=== PATIENT | female | born 1970 | race Caucasian/White ===

== ENCOUNTER 2018-12-03 13:01 | Outpatient (REF) | payer SELFPAY ==
--- NOTE | 2018-12-03 17:00 | PAPFT_PTH ---
PATIENT: Helena Mora LOC: [facility] U#:[id number] AGE/SX: 48/F ROOM: RE12/03/[address]: Miriam Simmons : 1970 BED: DIS: 12/03/2018 SPEC #: [id number] RECD: 12/04/18 13:15 STATUS: ERIN REDacia #: [id number] AMINAH: 12/03/18 17:[address]: Miriam Simmons DEPT: [facility] Cytology RECD BY: Kassandra Rodas ENTERED: 12/04/18 13:15 SP TYPE: PAPFT OTHR DR: Aaron Currie Tissues: 1 - CX/ENDOCX FOR PAP SMEARS Procedures: PAP THIN PREP/UVM Screening HPV DNA PROBE Comments: [id number]
== END 2018-12-03 13:21 ==
LOC: NCHCN 13:01
PROVIDERS: PCP Family Medicine; Visit Provider Family Medicine
DX: Z00.00 Encounter for general adult medical examination without abnormal findings (principal); Z12.4 Encounter for screening for malignant neoplasm of cervix; Z11.51 Encounter for screening for human papillomavirus (HPV)
CPT/HCPCS: 88142; 87624

== ENCOUNTER 2020-02-10 08:34 | Outpatient (REF) | payer BC, SELFPAY ==
[2020-02-10 21:19] LABS: Calculated LDL 143 mg/dL (<100); Cholesterol 218 mg/dL (<200); HDL Cholesterol 42 mg/dL (40-60); Triglyceride 167 mg/dL (<150)
[2020-02-15 12:54] LABS: IgA <13 mg/dL (85-499); Interpretation (See Note); Tissue Transglutaminase IgA <1.2 U/mL (<4.0)
== END 2020-02-10 08:54 ==
LOC: NCHCN 08:34
PROVIDERS: PCP Family Medicine; Visit Provider Nurse Practitioner Community Health
DX: E66.01 Morbid (severe) obesity due to excess calories (principal); Z13.220 Encounter for screening for lipoid disorders; Z91.89 Other specified personal risk factors, not elsewhere classified
CPT/HCPCS: 80061; 82784; 83516

== ENCOUNTER 2021-06-16 14:37 | Outpatient (REF) | payer OTHER, SELFPAY ==
[2021-06-18 16:29] LABS: COVID-19 RT-PCR UVMMC Result Negative (Negative)
== END 2021-06-16 14:38 | disposition home or self-care (01) ==
LOC: NCHCN 14:37
PROVIDERS: PCP Family Medicine; Visit Provider Nurse Practitioner Community Health
DX: Z20.822 Contact with and (suspected) exposure to COVID-19 (principal); J06.9 Acute upper respiratory infection, unspecified
CPT/HCPCS: U0003

== ENCOUNTER 2021-06-17 21:21 | Emergency (ER) | payer OTHER, SELFPAY ==
[2021-06-17] VITALS (19 sets, daily range): BP systolic 100–122; BP diastolic 55–71; PULSE 84–104; RESP 13–21; TEMP 37; O2SAT 94–96
--- NOTE | 2021-06-17 21:45 | DI.RAD_ITS ---
Exam(s) XR PORTABLE CHEST AP EXAM: XR PORTABLE CHEST AP CLINICAL HISTORY: fever, cough TECHNIQUE: COMPARISON: CR CHEST 2 VIEWS PA,LAT from 07/28/2016 FINDINGS: Semi upright AP chest at 1035 hours. The heart is not enlarged. Lungs are clear. No pleural effusi on seen on this frontal film. IMPRESSION: No evidence of acute process. RADIATION DOSE DELIVERED: Total DLP
--- NOTE | 2021-06-17 21:55 | W.ED.GENAD ---
Discharge Plan Disposition Patient Disposition: HOME Condition: Good Discharge Details Clinical Impression: Viral illness, Left leg pain Primary Care Provider: Aaron Currie ED Provider: Keith Sidhu Meds and New Rx's Prescriptions: New Eliquis 5 mg tablet 10 mg PO BID Qty: 8 RF: 0 Continued citalopram 40 mg Tablet 40 mg PO DAILY RF: 0 aspirin 81 mg Tablet 81 mg PO BID RF: 0 buspirone 15 mg Tablet 15 mg PO BID RF: 0 metoprolol succinate 25 mg Capsule,Sprinkle,Er 24hr 25 mg PO DAILY RF: 0 Discharge Instructions Instructions: Viral Syndrome (ED) Additional Instructions: Your Covid test and chest x-ray are negative. Your blood count and chemistries look fine. Your screening test for blood clot is positive meaning ultrasound of your leg to rule out deep vein thrombosis is needed. Hopefully this will occur today but may not occur until Saturday morning. In the meantime you will need to take Eliquis 10 mg twice a day with first dose given today here. Next dose would be due around noon on Saturday if the ultrasound is not done. Prescription has been sent to the [facility] in [facility]. Return to ED for chest pain, shortness of breath, mental status changes, other concerns. Medical Decision Making Patient presenting with chief complaint fever, cough, diarrhea. She is vaccinated but symptoms certainly concerning for Covid. She is also complaining of left lower extremity pain. There is no obvious edema or swelling. There is a bruise left lateral calf region. Pulses are intact and I doubt she has DVT but we will check D-dimer given the posterior calf tenderness. Will get chest x-ray, CBC, CMP as well as swab for Covid. Chest x-ray is normal. Normal WBC. CMP with slightly elevated AST and ALT. D-dimer is markedly elevated. Ultrasound not available tonight. Covid swab negative. Discussed findings with patient. Will dose with Eliquis tonight and patient will come back for 9 a.m. ultrasound. Return to ED for results. HPI General Mode of arrival: ambulatory. Date/Time Provider Initiated Documentation: 06/17/21 21:27. Limitations to Documentation: no limitations. Information obtained by: patient and RN notes reviewed. HPI Narrative: Patient presents to ED with complaint of fever, chills, cough. She is also now having significant amount of diarrhea and cramps. Fever and chills started yesterday. Cough and diarrhea started today. She also has bruising and pain in the left lower extremity with no definite trauma that she recalls. She is vaccinated against Covid. She denies headache, sore throat, chest pain, shortness of breath, vomiting, urinary symptoms, rash. She is a little concerned that she may have developed a clot in her leg which is the biggest reason for coming in. However, she is also concerned about Covid. Related Data Home Medications Medication Instructions Recorded Confirmed aspirin 81 mg PO BID 06/17/21 06/17/21 buspirone 15 mg PO BID 06/17/21 06/17/21 citalopram 40 mg PO DAILY 06/17/21 06/17/21 metoprolol succinate 25 mg PO DAILY 06/17/21 06/17/21 apixaban [Eliquis] 10 mg PO BID #8 tab 06/18/21 Previous Rx's Medication Instructions Recorded apixaban [Eliquis] 10 mg PO BID #8 tab 06/18/21 Allergies Allergy/AdvReac Type Severity Reaction Status Date / Time sulfamethoxazole Allergy Intermediate Skin Rash Unverified 06/17/21 21:35 [From Bactrim] trimethoprim [From Bactrim] Allergy Intermediate Skin Rash Unverified 06/17/21 21:35 General Stated Complaint: Fever RAMA: 3 Review of Systems Narrative: As documented in HPI otherwise negative as below. Const: no weakness Resp: no SOB, pleuritic pain CV: no CP, edema, syncope GI: no nausea, vomiting Neuro: no headache, numbness, focal weakness, confusion PFSH Medical History Coronary artery dissection Depression Surgical History (Updated 06/17/21 @ 21:57 by Keith Sidhu MD) S/P cholecystectomy S/P tubal ligation Stented coronary artery Social History Smoking/Tobacco Use Status: Never Smoking risk assessment performed?: Yes Alcohol Intake: current Alcohol Intake frequency: holidays/special occasions only Drug use: Never Substance use type: does not use Do you feel safe at home: Yes Do you feel safe in your relationship?: Yes Exam Narrative Exam Narrative: Const: Overweight female in NAD. HEENT: NC/AT. Normal facial exam. Eyes: Normal conjunctiva and sclera. Neck: Supple. Trachea midline. Lungs: Normal respiratory effort. Lungs are clear. Cor: RRR without murmur/gallop. Good radial pulses. GI: Soft. NT/ND. No guarding or rebound. Neuro: A+O x 3. Normal speech, mentation, gait. Cranial nerves II - XII grossly intact. No gross motor or sensory deficit. Ext: No C/C/E. Large bruise lateral left mid calf. Mild posterior calf tenderness to compression. Skin: Warm and diaphoretic without rash. Course Vital Signs Vital signs: Vital Signs Temperature 98.6 F 06/17/21 21:32 Pulse 104 H 06/17/21 21:32 Respiratory Rate 14 06/17/21 21:32 Blood Pressure 122/56 L 06/17/21 21:32 Pulse Oximetry 96 06/17/21 21:32 Temperature 98.6 F 06/17/21 21:32 Temperature Source Temporal Artery Scan 06/17/21 21:32 Pulse 104 H 06/17/21 21:32 Respiratory Rate 14 06/17/21 21:32 Respiratory Effort Non-Labored 06/17/21 21:38 Blood Pressure 122/56 L 06/17/21 21:32 Blood Pressure Position Sitting 06/17/21 21:32 Pulse Oximetry 96 06/17/21 21:32 Oxygen Delivery Method OxyMask 06/17/21 21:32 Pain Level 3 06/17/21 21:32
[2021-06-17] MEDS: Lactated Ringers 1,000 ML 1000 ML IV (22:20)
[2021-06-17 22:54] LABS: Source Nasal/Nares
--- NOTE | 2021-06-17 22:54 | DI.VRAD_ITS ---
PROCEDURE INFORMATION: Exam: XR Chest Exam date and time: 06/17/2021 10:00 PM Age: 51 years old Clinical indication: Fever and shortness of breath; Patient HX: Fever, cough TECHNIQUE: Imaging protocol: XR of the chest. Views: 1 view. COMPARISON: CR CHEST 2 VIEWS PA,LAT 07/28/2016 3:40 PM FINDINGS: Lungs: Unremarkable. No consolidation. Pleural spaces: Unremarkable. No pleural effusion. No pneumothorax. Heart/Mediastinum: Unremarkable. No cardiomegaly. Bones/joints: Unremarkable. IMPRESSION: No acute findings. Dictated and Authenticated by: Julio Underwood MD. Ordering:MEERA Parker MD
[2021-06-17 22:55] LABS: Abs Immature Grans 0.04 10^3/uL (0.0-0.06); Absolute Basophil Count 0.03 10^3/uL (0.0-0.2); Absolute Eosinophil Count 0.01 10^3/uL (0.0-0.7); Absolute Lymphocyte Count 1.13 10^3/uL (1.2-3.4); Absolute Monocyte Count 0.59 10^3/uL (0.1-0.8); Absolute Neutrophil Count 8.23 10^3/uL (1.2-6.7); Basophils % 0.3; Eosinophils % 0.1; HCT 39.4 % (36.0-46.0); HGB 12.6 g/dL (11.2-15.7); Immature Grans % 0.4; Lymphocytes % 11.3; MCH 26.9 pg (27.0-33.0); MCV 84.2 fL (80-95); MPV 11.1 fL (8.0-11.0); Monocytes % 5.9; Nucleated RBC 0 %; Platelet Count 233 10^3/uL (130-400); RBC 4.68 10^6/uL (3.93-5.22); RDW 13.1 % (11.7-14.6); WBC 10.03 10^3/uL (4.4-10.8)
[2021-06-17 23:26] LABS: ALT 91 U/L (14-59); AST 72 U/L (15-37); Albumin 2.9 g/dL (3.4-5.0); Alkaline Phosphatase 83 U/L (46-116); Anion Gap 8.8 mmol/L (3-11); BUN 15 mg/dL (7-18); Bilirubin, Total 0.3 mg/dL (0.2-1.0); CO2 24.2 mmol/L (21.0-32.0); Calcium 8.6 mg/dL (8.5-10.1); Chloride 106 mmol/L (98-107); Estimated GFR 58.22 (mL/min/1.73m2); Glucose 111 mg/dL (74-106); Sodium 139 mmol/L (136-145); Total Protein 7.2 g/dL (6.4-8.2)
[2021-06-17 23:43] LABS: D-Dimer 3474 ng/mlFEU (<500)
[2021-06-18] VITALS: BP 126/70; PULSE 86; O2SAT 95
[2021-06-18 00:01] VITALS: O2SAT 96
[2021-06-18 00:22] LABS: COVID-19 PCR Negative (Negative)
[2021-06-18] MEDS: Apixaban 5 MG TAB 10 MG PO (00:34)
[2021-06-18 00:46] VITALS: TEMP 37
--- NOTE | 2021-06-19 09:51 | NUR.NOTE ---
Spoke with Helena, verified identity and relayed negative covid results to her.
== END 2021-06-18 01:10 | disposition home or self-care (01) ==
PROVIDERS: Emergency Provider Emergency Medicine; PCP Family Medicine
DX: B34.9 Viral infection, unspecified (principal); R50.9 Fever, unspecified; R05 Cough; M79.662 Pain in left lower leg
CPT/HCPCS: 36415; 80053; 87635; 99283; 71045; 85025; 85379; 99284

== ENCOUNTER 2021-06-18 09:40 | Emergency (ER) | payer OTHER, SELFPAY ==
--- NOTE | 2021-06-18 09:53 | ED.GENADUL_ITS ---
Discharge Plan Disposition Patient Disposition: HOME Condition: Stable Discharge Details Clinical Impression: Viral illness, Left leg pain Primary Care Provider: Aaron Currie ED Provider: Omar Hector Home Meds and New Rx's Prescriptions: Continued citalopram 40 mg Tablet 40 mg PO DAILY RF: 0 aspirin 81 mg Tablet 81 mg PO BID RF: 0 buspirone 15 mg Tablet 15 mg PO BID RF: 0 metoprolol succinate 25 mg Capsule,Sprinkle,Er 24hr 25 mg PO DAILY RF: 0 Discontinued Eliquis 5 mg tablet 10 mg PO BID Qty: 8 RF: 0 Discharge Instructions Additional Instructions: Please see discharge instructions provided by Dr. Sidhu from last night. Please drink plenty of fluids to stay hydrated. Rest over the next few days. Please contact your primary care physician to arrange follow-up. Call tomorrow. If pain persist she may need follow-up ultrasound. Return to the ER immediately for any worsening or new concerning symptoms. Discharge Data Discharge Date/Time-TO BE ENTERED AT DEPARTURE: 06/18/21 10:27 Medical Decision Making 51-year-old female here with left leg pain, seen in the emergency department last night for acute onset left lower extremity pain, also with URI symptoms, ultrasound was not available last night to assess for DVT, she was instructed to return this morning for ultrasound. Patient does not request any additional medical screening exam and is here for discussion of her results -patient should not be billed for this repeat visit. I did examine her leg and did not see any inflammatory changes. She has strong pulses bilateral distal lower extremities. Ultrasound interpreted by radiology: FINDINGS: Left deep veins: Unremarkable. The common femoral, femoral, proximal profunda femoral and popliteal veins are patent without thrombus. Normal Doppler waveforms. Normal compressibility and/or augmentation response. Left superficial veins: Unremarkable. Saphenofemoral junction is patent without thrombus. Soft tissues: Unremarkable. IMPRESSION: No evidence of deep vein thrombosis. Ultrasound results were reviewed with patient. Patient was encouraged to follow-up with PCP and have repeat ultrasound for persistent symptoms. Patient understands the importance of timely outpatient follow-up. HPI General Mode of arrival: ambulatory . Date/Time Provider Initiated Documentation: 06/18/21 09:43 . Limitations to Documentation: no limitations . Information obtained by: patient . HPI Narrative: 51-year-old female here for discussion of ultrasound results. Patient was seen here last night for left calf pain, ultrasound was not available last night, and pt advised to return for ultrasound this morning. She continues to have some pain in her left calf. She had ultrasound performed just prior to arrival and is here requesting results. Patient is not requesting additional medical screening exam. Related Data Home Medications Medication Instructions Recorded Confirmed aspirin 81 mg PO BID 06/17/21 06/18/21 buspirone 15 mg PO BID 06/17/21 06/18/21 citalopram 40 mg PO DAILY 06/17/21 06/18/21 metoprolol succinate 25 mg PO DAILY 06/17/21 06/18/21 Allergies Allergy/AdvReac Type Severity Reaction Status Date / Time sulfamethoxazole Allergy Intermediate Skin Rash Unverified 06/18/21 10:24 [From Bactrim] trimethoprim [From Bactrim] Allergy Intermediate Skin Rash Unverified 06/18/21 10:24 General RAMA: 3 PFSH Medical History Coronary artery dissection Depression Surgical History S/P cholecystectomy S/P tubal ligation Stented coronary artery Social History Smoking/Tobacco Use Status: Never Smoking risk assessment performed?: Yes Alcohol Intake: current Alcohol Intake frequency: holidays/special occasions only Drug use: Never Substance use type: does not use Do you feel safe at home: Yes Do you feel safe in your relationship?: Yes Exam Cardio Rate: regular rate Rhythm: regular rhythm Pulses: dorsalis pedis present bilaterally 2+ Extrem Right lower extremity: knee Details: tenderness and normal ROM; no swelling, no deformity and no unusual warmth and lower leg Details: tenderness Location: of the posterior calf and no edema; no erythema, no localized swelling, no palpable cords, no ecchymosis, no crepitus, no deformity and no unusual warmth
[2021-06-18 10:13] VITALS: BP 121/74; PULSE 95; RESP 18; TEMP 36.8; O2SAT 97
== END 2021-06-18 10:27 | disposition home or self-care (01) ==
PROVIDERS: Emergency Provider Student in an Organized Health Care Education/Training Program; PCP Family Medicine
DX: M79.605 Pain in left leg (principal)

== ENCOUNTER 2022-09-06 17:52 | Outpatient (REF) | payer BC, SELFPAY ==
[2022-09-06 21:57] LABS: ALT 37 U/L (14-59); AST 27 U/L (15-37); Albumin 3.5 g/dL (3.4-5.0); Alkaline Phosphatase 77 U/L (46-116); Anion Gap 9.8 mmol/L (3-11); BUN 20 mg/dL (7-18); Bilirubin, Total 0.3 mg/dL (0.2-1.0); CO2 27.2 mmol/L (21.0-32.0); CREATININE 0.9 mg/dL (0.55-1.02); Calculated LDL 120 mg/dL (<100); Chloride 101 mmol/L (98-107); Cholesterol 200 mg/dL (<200); Estimated GFR 76.44 (mL/min/1.73m2); Glucose 88 mg/dL (74-106); HDL Cholesterol 40 mg/dL (40-60); Potassium 3.8 mmol/L (3.5-5.1); Sodium 138 mmol/L (136-145); TSH 1.12 uIU/mL (0.36-3.74); Triglyceride 200 mg/dL (<150)
== END 2022-09-06 17:53 | disposition home or self-care (01) ==
LOC: NCHCN 17:52
PROVIDERS: PCP Family Medicine; Visit Provider Registered Nurse
DX: I25.10 Atherosclerotic heart disease of native coronary artery without angina pectoris (principal); E66.8 Other obesity; Z13.1 Encounter for screening for diabetes mellitus; Z13.29 Encounter for screening for other suspected endocrine disorder; Z13.220 Encounter for screening for lipoid disorders
CPT/HCPCS: 80053; 80061; 83036; 84443

== ENCOUNTER 2024-01-06 13:10 | Outpatient (REF) | payer BC, SELFPAY ==
[2024-01-06 15:44] LABS: HCT 40.9 % (36.0-46.0); HGB 13.2 g/dL (11.2-15.7); MCH 28.1 pg (27.0-33.0); MCHC 32.3 % (32.0-36.0); MCV 87 fL (80-95); Platelet Count 286 10^3/uL (130-400); RDW 12.9 % (11.7-14.6); RDW-SD 40.6 fL; WBC 6.33 10^3/uL (4.4-10.8)
[2024-01-06 16:06] LABS: Hemoglobin A1C 5.8 % (<5.7)
[2024-01-06 16:18] LABS: Anion Gap 9.2 mmol/L (3-11); BUN 19 mg/dL (7-18); CO2 23.8 mmol/L (21.0-32.0); CREATININE 0.8 mg/dL (0.55-1.02); Calcium 8.8 mg/dL (8.5-10.1); Calculated LDL 148 mg/dL (<100); Chloride 108 mmol/L (98-107); Cholesterol 228 mg/dL (<200); Glucose 116 mg/dL (74-106); HDL Cholesterol 49 mg/dL (40-60); Potassium 4.5 mmol/L (3.5-5.1); Sodium 141 mmol/L (136-145); Triglyceride 157 mg/dL (<150)
== END 2024-01-06 13:11 | disposition home or self-care (01) ==
LOC: NCHCN 13:10
PROVIDERS: PCP Family Medicine; Visit Provider Internal Medicine
DX: R73.09 Other abnormal glucose (principal); E66.9 Obesity, unspecified
CPT/HCPCS: 80048; 80061; 85027; 83036

== ENCOUNTER 2024-07-29 16:30 | Emergency (ER) | payer BC, SELFPAY ==
[2024-07-29 16:37] VITALS: BP 118/69; PULSE 92; RESP 15; TEMP 37.4; O2SAT 94
--- NOTE | 2024-07-29 17:00 | DI.RAD_ITS ---
Exam(s) XR ELBOW LT COMPLETE EXAM: XR ELBOW LT COMPLETE CLINICAL HISTORY: l elbow pain sp fall. TECHNIQUE: 2D digital imaging was performed. COMPARISON: No exams were available for comparison FINDINGS: 3 views No evidence of fracture of the radial head and neck. There is slight elevation of the anterior fat p ad. No swelling of the olecranon bursa. On the lateral aspect of the elbow there is some cortical irregularity at the level of the lateral hu meral epicondyle. Possibly related to epicondylitis versus direct trauma at this level. On 1 image there is a E 6 x 2 mm calcific density just distal to the lateral epicondyle in the region of the lat eral collateral ligament. IMPRESSION: No fracture of the radial head/neck. Findings on the lateral aspect of the distal humerus as described above. Correlation with site of te nderness recommended. DATA REPOSITORY: RADIATION DOSE DELIVERED:
--- NOTE | 2024-07-29 17:13 | W.ED.GENAD ---
Discharge Plan Disposition Patient Disposition: Home Discharge Details Clinical Impression: Abrasion of forearm, left, Immunization, tetanus-diphtheria, Hx of falling, Traumatic ecchymosis of forehead Primary Care Provider: Aaron Currie ED Provider: Jourdan Sanchez Home Meds and New Rx's Prescriptions: Continued citalopram 40 mg Tablet 40 mg PO DAILY aspirin 81 mg Tablet 81 mg PO BID buspirone 15 mg Tablet 15 mg PO BID metoprolol succinate 25 mg Capsule,Sprinkle,Er 24hr 25 mg PO DAILY bupropion HCl 75 mg tablet 150 mg PO BID naltrexone 1.5 mg capsule 16 mg PO BID Discharge Instructions Instructions: Td (Tetanus, Diphtheria) Vaccine CDC Vaccine Information Statement (VIS) Additional Instructions: You are seen in the emergency department for your arm pain. Your x-ray showed no sign of any fractures. Given your discomfort you are receiving a sling which you should wear for the next several days. As we discussed please return to the emergency department if you develop streaking signs of infection fevers or any foul-smelling drainage from your wound. Otherwise please ice your arm 20 minutes on 20 minutes off tomorrow. Please do not wear the sling for more than 3 days. Please follow-up as needed with your primary care provider. Discharge Data Discharge Date/Time-TO BE ENTERED AT DEPARTURE: 07/29/24 19:10 HPI General Date/Time Provider Initiated Documentation: 07/29/24 17:00. HPI Narrative: MDM Primary survey intact. Reassuring shock index. On secondary survey patient has superficial abrasion to left elbow with underlying bony tenderness concerning for possibility of fracture for which she will undergo plain films. No loss of consciousness and age less than 65 so no indication for CT head based on [place] CT head rules. [place] Head CT Criteria Major Criteria GCS < 15 : [No] Open or depressed skull Fx: [No] Sign of Basilar Skull Fx: [No] > 2 Episodes Vomiting: [No] Anticoagulation: [No] Age > 65: [No] Minor Criteria Retrograde Amnesia >30min: [No] Dangerous Mechanism: [No] Per [place] head CT rules, CT head not obtained. The patient had a GCS of 15, no open/depressed skull fracture, no signs of basilar skull fracture (hemotympanum, raccoon eyes, dominguez's sign, CSF [place]/Rhinorrhea), no vomiting, and is less than 65 years of age. No midline cervical spinal tenderness no indication for CT cervical spine based on Nexus criteria. Per Nexus criteria, cervical CT not obtained. The patient had no c-spine midline tenderness, no evidence of intoxication, was AAOx3, had no focal neurological deficits, and no painful distracting injuries. Will update patient's tetanus. Abrasions appear fairly superficial so do not feel that the patient will require primary closure however will reinspect following cleaning. No preceding chest pain to suggest ACS nor dizziness nor shortness of breath to suggest PE. 11:30 PM I reviewed the patient's x-ray with Dr. Galloway as patient was noted to have an abnormality on her lateral epicondyle per radiology. Dr. Galloway agreed with plan to rest and sling for several days and follow-up as needed with primary care provider. Patient I discussed that she should return if she developed any color changes in her hand any recurrent falls or any nausea or vomiting. HPI This is a 54-year-old female arrived emerged part via private vehicle in the setting of a fall. 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 She struck her left elbow and her head against concrete. She noted some bleeding from her abrasion to her left eyebrow. She did not lose consciousness. She has not yet taken any medications. She has some pain in both of her knees but has been ambulatory. Denies any anticoagulant use be on 81 mg aspirin daily. She denies any preceding chest pain dizziness and shortness of breath. Exam General: Well-appearing in no acute distress speaking in complete sentences. Head: Normocephalic, atraumatic. Eye:[Pupils equal, round reactive to light.] Extraocular eye movements intact. No conjunctival injection. No scleral icterus. Ear, nose, mouth, throat: Grossly normal inspection. Normal voice, handling secretions normally. No hemotympanum bilaterally. Neck: Trachea midline. No midline cervical spinal tenderness. Cardiovascular: Well-perfused distal extremities. Regular rate and rhythm Respiratory: Nonlabored respiration. Clear lungs bilaterally. Gastrointestinal: Nondistended abdomen. Musculoskeletal: Left upper extremity: On the dorsal surface of the left proximal forearm there is an approximately 2 x 2 cm hemostatic abrasion. Patient has underlying bony tenderness. No obvious step-offs or deformity. No tenderness of shoulder and humerus. Full range of motion in humerus. Range of motion of forearm limited secondarily by pain. No forearm tenderness. No hand tenderness. Left hand warm well-perfused. 2+ left cap refill. Sensation motor function intact in left hand across the radial, median, and ulnar nerve distributions. Skin: Normal for age and race, grossly normal temperature and turgor. No acute rash. Neurologic: Alert and appropriate, no apparent acute deficits. Psychiatric: Mood and manner are appropriate. Grooming and personal hygiene are appropriate. Related Data Home Medications ?Medication ?Instructions ?Recorded ?Confirmed aspirin 81 mg tablet 81 mg PO BID 06/17/21 07/29/24 buspirone 15 mg tablet 15 mg PO BID 06/17/21 07/29/24 citalopram 40 mg tablet 40 mg PO DAILY 06/17/21 07/29/24 metoprolol succinate 25 mg capsule 25 mg PO DAILY 06/17/21 07/29/24 sprinkle, ext. release 24 hr bupropion HCl 75 mg tablet 150 mg PO BID 07/29/24 07/29/24 naltrexone 1.5 mg capsule 16 mg PO BID 07/29/24 07/29/24 Allergies Allergy/AdvReac Type Severity Reaction Status Date / Time sulfamethoxazole (From Allergy Intermediate Skin Rash Unverified 07/29/24 16:45 Bactrim) trimethoprim (From Bactrim) Allergy Intermediate Skin Rash Unverified 07/29/24 16:45 General Stated Complaint: Fall/Non TraumaCriteria RAMA: 3 Course Vital Signs Vital signs: Vital Signs Temperature 37.4 C 07/29/24 16:37 Pulse 92 H 07/29/24 16:37 Respiratory Rate 15 07/29/24 16:37 Blood Pressure 118/69 07/29/24 16:37 Pulse Oximetry 94 07/29/24 16:37 Temperature 37.4 C 07/29/24 16:37 Pulse 92 H 07/29/24 16:37 Respiratory Rate 15 07/29/24 16:37 Respiratory Effort Normal 07/29/24 16:44 Blood Pressure 118/69 07/29/24 16:37 Blood Pressure Position Sitting 07/29/24 16:37 Pulse Oximetry 94 07/29/24 16:37 Oxygen Delivery Method Room Air 07/29/24 16:37 Oxygen Flow Rate 0 07/29/24 16:37 Medical Decision Making Quality:SDOH Health Related Social Needs: No Data to Display PFSH All Active Problems (Updated 07/29/24 @ 18:48 by Jourdan Sanchez MD) Traumatic ecchymosis of forehead (Acute) Hx of falling (Acute) Immunization, tetanus-diphtheria (Acute) Abrasion of forearm, left (Acute) Left leg pain (Acute) Viral illness (Acute) Medical History Coronary artery dissection Depression Surgical History S/P cholecystectomy S/P tubal ligation Stented coronary artery Social History Smoking/Tobacco Use Status: Never Smoking risk assessment performed?: Yes Alcohol Intake: current Alcohol Intake frequency: holidays/special occasions only Drug use: Never Substance use type: does not use Do you feel safe at home: Yes Do you feel safe in your relationship?: Yes
--- OUTSIDE RECORDS SUMMARY | 2024-07-29 18:23 | XMS_ITS ---
Author Organization Unknown Address [address] [place] [address] [phone] Phone Care Team Providers Care Chemical Dependency Attendant Name Role Phone LINDA Norris Attending Unavailable LISA Belle Primary Unavailable Results XR C SPINE 4V OR 5V - Comple nelia: 01/17/2022 19:06 LOINC: CERVICAL SPINE - 5 VIEWS:The re is disc space narrowing at C6-7. There are hypertrophic changes involving the vertebral end plates, particularly at C5-6 and C6-7. There are mild to moderate hypertrophic changes of the facet joints throughout the cervical region. Right neural foramina appear well maintained. Left neural foramina not well visualized. CONCLUSION: Moderate degenerative changes of the cervical spine. No erosive or destructive lesions seen. Dictated by: TOMAS ALMAGUER RADIOLOGIST Transcribed by: NEGRITO 01/18/22/10:31 D , January 18, 2022 7:38:44 AM [id number] Electronically Reviewed and Signed By: TAYLER ALMAGUER RADIOLOGIST 01/18/22 12:16 Copy for: LINDA Norris via fax Copy for: [facility] [employer] Social History Type Status Start Date End Date Code Code Syst em Smoking History Never smoker (Never Smoked) [id number] SNOMED CT Sex Female Hospital Discharge Instructions Should you have any questions prior to discharge, please contact a member of your healthcare team. If you have left the hospital and have any questions, please contact your primary care physician. Reason For Referral No Data Found Allergies and Adverse Reactions Allergy Substance Reaction Severity Start Date Concern Status Co de Code System BACTRIM RASH Moderate Active Plan of Treatment No Data Found Encounters Encounter Diagnosis Start Date Code Code Sys tem Other cervical disc degeneration at C5-C6 level 2021 SNOMED-CT Personal Care Team Section Performer Name Performer Role Active Date Inactive Da te
--- OUTSIDE RECORDS SUMMARY | 2024-07-29 18:24 | XMS_ITS | Encounter Summary ---
Author Organization [facility] Address [address] [place] [address] Care Team Providers Care Heel Turner Name Role Phone Unavailable Primary Care Provider Unavailabl e Encounter Details Date Type Department Care Team (Late st Contact Info) Description 08/21/[address] [facility] CT Scan [address] [place] [address] Júnior Méndez Social History Tobacco Use Types Packs/Day Years Used Date Smoking Tobacco: Never Smokeless Tobacco: Never Alcohol Use Standard Drinks/Week Comments Yes 2 (1 standard drink = 0.6 oz pur e alcohol) Interpersonal Safety Answer Date Record ed Physically Hurt Never 05/02/2020 Verbally Threaten Not on file 05/02/2020 Sex and Gender Information Value Date Recorded Sex Assigned at Not on file Gender Identity Female 02/08/2020 14:12 EDT Sexual Orientation Not on file documented as of this encounter Functional Status Functional Status Response Date of Assess ment Are you deaf or do you have serious difficulty h earing? No 07/28/2016 Are you blind or do you have serious difficulty seeing, even when wearing glasses? No 07/28/2016 Do you have serious difficul ty walking or climbing stairs? (5 years old or older) No 07/28/2016 Do you have difficulty dress ing or bathing? (5 years old or older) No 07/28/2016 Because of a physical, menta l, or emotional condition, do you have difficulty doing errands alone such as visiting a doctor's office or shopping? (15 years old or older) No 07/28/2016 Cognitive Status Response Date of Assessm ent Because of a physical, menta l, or emotional condition, do you have serious difficulty concentrating, remembering, or making decisions? (5 years old or older) No 07/28/2016 documented as of this encounter Plan of Treatment Upcoming Encounters Date Type Department Care Team (Late st Contact Info) Description 08/10/2024 13:30 EST Office Visit [facility] [address] [place] [address] Melanie Chamberlain MD [address] [place] [address] [address] [place] [address] documented as of this encounter Visit Diagnoses Not on filedocumented in this encounter
--- OUTSIDE RECORDS SUMMARY | 2024-07-29 18:24 | XMS_ITS | Encounter Summary ---
Author Organization [facility] Address [address] [place] [address] Care Team Providers Care Banking Supervisor Name Role Phone Antonieta Parson SHIRRING MACHINE OPERATOR AUTOMATIC Primary Care Provider [phone] Suze Cain SHIRRING MACHINE OPERATOR AUTOMATIC Unavailable [phone] Melanie Chamberlain MD Unavailable [phone] Reason for Visit * Reason Comments Medications Refill Encounter Details Date Type Department Care Team (Late st Contact Info) Description 10/28/2022 Refill [facility] [address] [place] [id number] Melanie Chamberlain MD [address] [facility] 1 [place] [address] Medications Refill Social History Tobacco Use Types Packs/Day Years [...] No 07/28/2016 documented as of this encounter Ordered Prescriptions Prescription Sig Dispensed Refills Start Date End Da te metoprolol SUCCinate (TOPROL-XL) 25 mg tabletIndications:Coronary artery dissection TAKE 1 TABLET BY MOUTH EVERY DAY 90 Tablet 5 10/29/2022 documented in this encounter Plan of Treatment Upcoming Encounters Date Type Department Care Team (Late st Contact Info) Description 08/10/2024 13:30 EST Office Visit [facility] [address] [place] [address] Melanie Chamberlain MD [address] [place] [address], [facility] 1 [place] [phone] documented as of this encounter Visit Diagnoses Diagnosis Coronary artery dissection Dissection of coronary artery documented in this encounter Discontinued Medications Medication Sig Discontinue Reason Start Date End Da te metoprolol SUCCinate (TOPROL-XL) 25 mg tabletIndications:Cruz ry artery dissection 1 tab(s) orally once a day 08/21/2021 10/29/2022 documented as of this encounter Care Teams Banking Supervisor Relationship Specialty Start Date End Date Antonieta Parson FNP PCP - General 09/04/21 Suze Cain FNP [address] [place] [phone] Family Medicine - Primary Care 09/04/21 Melanie Chamberlain MD [address] [place] [address] 21 [place] [address] Consulting Clinician Cardiovascular Disease 08/22/22 documented as of this encounter
--- OUTSIDE RECORDS SUMMARY | 2024-07-29 18:24 | XMS_ITS | Encounter Summary ---
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); Coronary artery dissection Social History Tobacco Use Types Packs/Day Years [...] Info) Description 08/10/2024 13:30 EST Office Visit [facility] [address] [place] [address] Melanie Chamberlain MD [address] [place] [address] 1 [place] [address] documented as of this encounter Procedures Procedure Name Priority Date/Time Associated Diagnosis Comments IGA Routine 09/04/2021 15:27 EST Disease of immune system (HCC) (HCC-CMS) IGM Routine 09/04/2021 15:27 EST Disease of immune system (HCC) (HCC-CMS) IGG Routine 09/04/2021 15:27 EST Disease of immune system (HCC) (HCC-CMS) BASIC METABOLIC PANEL (BMP) Routine 09/04/2021 15:27 EST Coronary artery dissection documented in this encounter Results * (ABNORMAL) BASIC METABOLIC PANEL (BMP) (09/04/2021 15:27 EST) Sodium 139 136 - 145 mmol/L 09/04/2021 17:04 EST [facility] Potassium 3.8 3.5 - 5.0 mmol/L 09/04/2021 17:04 [facility] Chloride 107 96 - 110 mmol/L 09/04/2021 17:04 [facility] CO2 Total 21(L) 22 - 32 mmol/L 09/04/2021 17:04 [facility] Anion Gap 11 8 - 16 09/04/2021 17:04 [facility] Glucose 133(H) 70 - 100 mg/dL 09/04/2021 17:04 [facility] Calcium 9.1 8.5 - 10.5 mg/dL 09/04/2021 17:04 [facility] BUN 14 10 - 26 mg/dL 09/04/2021 17:04 [facility] Creatinine 0.72 0.52 - 1.04 mg/dL 09/04/2021 17:04 [facility] eGFR 97 >60 mL/min/1.73 m2 09/04/2021 17:04 [facility] Blood VENOUS BLOOD / Unknown Venipuncture / Unknown 09/04/2021 15:27 EST 09/04/2021 16:14 EST Melanie Chamberlain MD CHEMISTRY & BLOOD GA S ORDERABLES Performing Organization Address [facility] de Phone Number [facility] [address] [place] [address] * IGM (09/04/2021 15:27 EST) IgM 120 35 - 242 mg/dL 09/05/2021 11:06 EST [facility] Blood VENOUS BLOOD / Unknown Venipuncture / Unknown 09/04/2021 15:27 EST 09/04/2021 16:14 EST Kenyetta Navarrete MD CHEMISTRY & BLOOD GA S ORDERABLES Performing Organization Address City/[facility] de Phone Number [facility] [address] [place] [address] * IGG (09/04/2021 15:27 EST) IgG 1,586 610-1,616 mg/dL 09/05/2021 11:06 EST [facility] Blood VENOUS BLOOD / Unknown Venipuncture / Unknown 09/04/2021 15:27 EST 09/04/2021 16:14 EST Kenyetta Navarrete MD CHEMISTRY & BLOOD GA S ORDERABLES [facility] [address] [place] [address] * (ABNORMAL) IGA (09/04/2021 15:27 EST) IgA <13(L) 85 - 499 mg/dL 09/05/2021 11:06 EST [facility] Blood VENOUS BLOOD / Unknown Venipuncture / Unknown 09/04/2021 15:27 EST 09/04/2021 16:14 EST Kenyetta Navarrete MD CHEMISTRY & BLOOD GA S ORDERABLES Performing Organization Address City/[facility] Co de Phone Number [facility] [address] [place] [address] documented in this encounter Visit Diagnoses Diagnosis Disease of immune system ([facility]-CMS)- Primary Unspecified disorder of immune mechanism Coronary artery dissection Dissection of coronary artery documented in this encounter Care Teams Wood Finisher Apprentice Relationship Specialty Start Date End Date Antonieta Parson FNP PCP - General 09/04/21 Suze Cain FNP [address] [place] [phone] Family Medicine - Primary Care 09/04/21 documented as of this encounter
--- OUTSIDE RECORDS SUMMARY | 2024-07-29 18:24 | XMS_ITS | Encounter Summary ---
Author Organization [facility] Address [address] [place] [address] Care Team Providers Care Esol Instructor Name Role Phone Bernadette Parsone HOUSE STEWARD/STEWARDESS Primary Care Provider [phone] Suze Cain HOUSE STEWARD/STEWARDESS Unavailable [phone] Reason for Referral * Radiology Services (Routine/Next Available) - Closed Specialty Diagnoses / Procedures Referred By Contac t Referred To Contact Diagnoses Coronary artery dissection Procedures CT ANGIO ABDOMEN Melanie Chamberlain MD [address] [place] [phone] [facility] Referral ID Status Reason Start Date Expiration Date Visits Re quested Visits Authorized [id number] Closed 08/23/2021 02/19/2022 1 1 * Radiology Services (Routine/Next Available) - Closed Specialty Diagnoses / Procedures Referred By Contac t Referred To Contact Diagnoses Coronary artery dissection Procedures CT ANGIO HEAD NECK Melanie Chamberlain MD [address] [address] [facility] Referral ID Status Reason Start Date Expiration Date Visits Re quested Visits Authorized [id number] Closed 08/21/2021 02/17/2022 1 1 Reason for Visit * Auth/Cert Specialty Diagnoses / Procedures Referred By Contac t Referred To Contact Referral ID Status Reason Start Date Expiration Date Visits Re quested Visits Authorized [id number] 1 1 Encounter Details Date Type Department Care Team (Latest Contact Info) Description 10/19/2021 8:58 EST - 10/19/2021 23:59 EST Hospital Encounter [facility] CT Scan [address] [place] [address] Coronary artery dissection Discharge Disposition: Home or Self Care Social History Tobacco Use Types Packs/Day Years [...] No 07/28/2016 documented as of this encounter Medications at Time of Discharge Medication Sig Dispensed Refills Start Date End Date aspirin 325 mg tablet 1 tab(s) orally once a day 08/21/2017 busPIRone (BUSPAR) 15 mg tablet TAKE 1 TABLET BY MOUTH TWICE DAILY. TOTAL DAILY DOSE 30 MG 07/31/2021 citalopram (CELEXA) 40 mg tablet Take 1 Tablet by mouth daily. 08/01/2021 levalbuterol (XOPENEX HFA) 45 mcg/actuation inhaler Inhale 1 Puff as directed every 6 hours as needed. loratadine (CLARITIN) 10 mg tablet Take 1 Tablet by mouth daily. 08/09/2021 nitroglycerin (NITROSTAT) 0.4 mg SL tablet 1 tab(s) sublingually every 5 minutes, as needed metoprolol SUCCinate (TOPROL-XL) 25 mg tabletIndications:Cor onary artery dissection 1 tab(s) orally once a day 90 Tablet 5 08/21/2021 10/29/2022 documented as of this encounter Discharge Disposition Disposition Code Departure Means Destination Home or Self Care documented in this encounter Miscellaneous Notes * Result Encounter Note - Melanie Chamberlain MD - 10/19/2021 0930 EST Please let Ms. Mathews know her CT scans are completely normal- no evidence of fibromuscular dysplasia. documented in this encounter Plan of Treatment Upcoming Encounters Date Type Department Care Team (Late st Contact Info) Description 08/10/2024 13:30 EST Office Visit [facility] [address] [place] [address] Melanie Chamberlain MD [address] [place] [address] 1 [place] [address] documented as of this encounter Procedures Procedure Name Priority Date/Time Associated Diagnosis Comments CT ANGIO HEAD NECK Routine 10/19/2021 10 :14 EST Coronary artery dissection CT ANGIO ABDOMEN Routine 10/19/2021 10:1 4 EST Coronary artery dissection documented in this encounter Results * CT ANGIO ABDOMEN (10/19/2021 10:14 EST) Anatomical Region Laterality Modality Body, Abdomen Computed Tomogra phy 10/19/2021 12:2 1 EST Impressions 10/19/2021 12:21 EST 1. No beading of the abdominal aorta or its proximal branches are detected to suggest fibromuscular dysplasia. 2. Mild atherosclerosis and mild luminal narrowing at the origin of the celiac trunk. Narrative 10/19/2021 12:[address] ANGIO ABDOMEN ?? Signs and Symptoms/Comments: ??Screening for fibromuscular dysplaisa Comparison: None. Technique: CT angiography of the abdomen were performed with the administration of 100 mL Omnipaque 350 contrast. Multiplanar and 3-D reconstructions were performed. I have personally reviewed and adjusted the images for the 3D rendering on an independent workstation, as necessary, prior to interpretation. CTA FINDINGS: The abdominal aorta measures 2.0 cm the diaphragm, 2.0 cm at the celiac trunk origin, 1.8 cm at the SMA origin, 1.7 cm at the renal artery origin, 1.4 cm at the mid descending, and 1.4 cm at the bifurcation. The proximal right common iliac artery measures 1 cm in diameter in the proximal left common iliac artery measures 1.1 cm in diameter. The origin of the celiac trunk demonstrates mild focal atherosclerosis and very mild luminal narrowing. The origin of the SMA is patent. No abnormal beading of the celiac trunk or SMA is seen. There are solitary bilateral renal arteries. The renal arteries appear widely patent bilaterally with no evidence of beading detected. ABDOMEN FINDINGS: The liver is normal. No intra or extrahepatic biliary ductal dilatation is present. Clips are seen in the gallbladder fossa. The pancreas is normal. The spleen is normal. The adrenal glands are normal. The kidneys are normal. The stomach is normal. The visible small and large bowel are unremarkable. No intraperitoneal free fluid or free air is identified in the visible upper abdomen. The visible body wall is unremarkable. No enlarged abdominal lymph nodes are present. Lower lumbar spine early degenerative disc and facet changes are seen. Procedure Note Micah Johnson MD - 10/19/2021 CT ANGIO ABDOMEN Signs and Symptoms/Comments: Screening for fibromuscular dysplaisa Comparison: None. Technique: CT angiography of the abdomen were performed with theadministration of 100 mL Omnipaque 350 contrast. Multiplanar and 3-Dreconstructions were performed. I have personally reviewed and adjustedthe images for the 3D rendering on an independent workstation, asnecessary, prior to interpretation. CTA FINDINGS: The abdominal aorta measures 2.0 cm the diaphragm, 2.0 cm at the celiactrunk origin, 1.8 cm at the SMA origin, 1.7 cm at the renal artery origin,1.4 cm at the mid descending, and 1.4 cm at the bifurcation. The proximalright common iliac artery measures 1 cm in diameter in the proximal leftcommon iliac artery measures 1.1 cm in diameter. The origin of the celiac trunk demonstrates mild focal atherosclerosis andvery mild luminal narrowing. The origin of the SMA is patent. No abnormalbeading of the celiac trunk or SMA is seen. There are solitary bilateralrenal arteries. The renal arteries appear widely patent bilaterally withno evidence of beading detected. ABDOMEN FINDINGS: The liver is normal. No intra or extrahepatic biliary ductal dilatation ispresent. Clips are seen in the gallbladder fossa. The pancreas is normal.The spleen is normal. The adrenal glands are normal. The kidneys arenormal. The stomach is normal. The visible small and large bowel are unremarkable.No intraperitoneal free fluid or free air is identified in the visibleupper abdomen. The visible body wall is unremarkable. No enlarged abdominal lymph nodes are present. Lower lumbar spine earlydegenerative disc and facet changes are seen. IMPRESSION 1. No beading of the abdominal aorta or its proximal branches are detectedto suggest fibromuscular dysplasia. 2. Mild atherosclerosis and mild luminal narrowing at the origin of theceliac trunk. Melanie Chamberlain MD [facility] [place] ORDERABLES * CT ANGIO HEAD NECK (10/19/2021 10:14 EST) Anatomical Region Laterality Modality Head and Neck Computed Tomogra phy 10/19/2021 11:3 4 EST Impressions 10/19/2021 11:34 EST 1. No hemodynamically significant arterial stenosis within the head or neck is detected. No clear beading to suggest fibromuscular dysplasia is detected within the neck. Portions of the supraclinoid ICA, and proximal middle and anterior cerebral circulation is degraded by artifact. However, no clear intracranial arterial stenosis or beading to suggest intracranial arterial fibromuscular dysplasia is detected. 2. Mild cerebral global volume loss and patchy high T2 signal white matter changes. This pattern is nonspecific however most commonly reflects mild small vessel ischemic disease of aging. Narrative 10/19/2021 11:[address] ANGIO HEAD NECK ?? Signs and Symptoms/Comments: ??screen for fibromuscular dysplasia Comparison: None. Technique: Unenhanced CT imaging of the head was obtained. CT angiography of the head and neck were performed with the administration of 100 mL Omnipaque 350 contrast. Multiplanar and 3-D reconstructions were performed. I have personally reviewed and adjusted the images for the 3D rendering on an independent workstation, as necessary, prior to interpretation. CT HEAD: There is very mild cerebral global volume loss. Patchy low attenuation white matter changes are seen throughout the centrum semiovale. The cortical ribbon is intact along the convexities. The deep jimenez nuclei and thalami are symmetric and normal in appearance. The skull base is unremarkable. The paranasal sinuses and mastoid air cells are clear. The calvarium is unremarkable. The position of the cerebellar tonsils is unremarkable. CTA NECK: There is a three-vessel aortic arch. The origin of the great vessels are widely patent. The common carotid arteries are widely patent throughout their course. The origin of the internal carotid arteries are widely patent. No hemodynamically significant ICA stenosis is detected. The cervical segment of the internal carotid arteries is unremarkable. No clear beading is noted. There is slight dominance of the left vertebral artery. The origin of the vertebral arteries appear widely patent. No beading of the vertebral arteries is seen. No vertebral artery dissection is noted within the neck area. Other: The lung apices are clear. The thyroid gland is unremarkable. Scattered upper neck lymph nodes are seen measuring up to 1 cm in diameter bilaterally. No adenopathy within the neck is visible. The salivary glands appear symmetric and unremarkable. Multilevel cervical spine degenerative disc and facet changes are seen. The area of the larynx and pharynx is unremarkable. CTA HEAD: The petrous and cavernous segments of the internal carotid arteries are widely patent and normal in appearance. The area of the ophthalmic artery origin is unremarkable bilaterally. The origin of the right posterior communicating artery is unremarkable. When accounting for artifact, the M1 segment of the middle cerebral artery is normal in appearance and widely patent bilaterally. The area of the MCA bifurcation is normal in appearance. The more distal MCA branches are unremarkable bilaterally. When accounting for artifact, the A1 segment of the anterior cerebral arteries are widely patent and normal in appearance. The area of the anterior communicating artery is unremarkable. The more distal anterior cerebral artery branches are normal in appearance. The intracranial segment of the vertebral arteries appear unremarkable. The origin of the PICA vessels is normal in appearance. The basilar artery is patent. The top of the basilar artery is unremarkable. The P1 segment of the posterior cerebral arteries appear patent. The more distal EMERGENCY MEDICAL TECHNICIAN branches are unremarkable. Procedure Note Micah Johnson MD - 10/19/2021 CT ANGIO HEAD NECK Signs and Symptoms/Comments: screen for fibromuscular dysplasia Comparison: None. Technique: Unenhanced CT imaging of the head was obtained. CT angiographyof the head and neck were performed with the administration of 100 mLOmnipaque 350 contrast. Multiplanar and 3-D reconstructions wereperformed. I have personally reviewed and adjusted the images for the 3Drendering on an independent workstation, as necessary, prior tointerpretation. CT HEAD: There is very mild cerebral global volume loss. Patchy lowattenuation white matter changes are seen throughout the centrumsemiovale. The cortical ribbon is intact along the convexities. The deepgray nuclei and thalami are symmetric and normal in appearance. The skull base is unremarkable. The paranasal sinuses and mastoid aircells are clear. The calvarium is unremarkable. The position of thecerebellar tonsils is unremarkable. CTA NECK: There is a three-vessel aortic arch. The origin of the greatvessels are widely patent. The common carotid arteries are widely patent throughout their course. The origin of the internal carotid arteries are widely patent. Nohemodynamically significant ICA stenosis is detected. The cervical segmentof the internal carotid arteries is unremarkable. No clear beading isnoted. There is slight dominance of the left vertebral artery. The origin of thevertebral arteries appear widely patent. No beading of the vertebralarteries is seen. No vertebral artery dissection is noted within the neckarea. Other: The lung apices are clear. The thyroid gland is unremarkable.Scattered upper neck lymph nodes are seen measuring up to 1 cm in diameterbilaterally. No adenopathy within the neck is visible. The salivary glandsappear symmetric and unremarkable. Multilevel cervical spine degenerativedisc and facet changes are seen. The area of the larynx and pharynx isunremarkable. CTA HEAD: The petrous and cavernous segments of the internal carotidarteries are widely patent and normal in appearance. The area of theophthalmic artery origin is unremarkable bilaterally. The origin of theright posterior communicating artery is unremarkable. When accounting for artifact, the M1 segment of the middle cerebral arteryis normal in appearance and widely patent bilaterally. The area of the MCAbifurcation is normal in appearance. The more distal MCA branches areunremarkable bilaterally. When accounting for artifact, the A1 segment of the anterior cerebralarteries are widely patent and normal in appearance. The area of theanterior communicating artery is unremarkable. The more distal anteriorcerebral artery branches are normal in appearance. The intracranial segment of the vertebral arteries appear unremarkable.The origin of the PICA vessels is normal in appearance. The basilar arteryis patent. The top of the basilar artery is unremarkable. The P1 segment of the posterior cerebral arteries appear patent. The moredistal EMERGENCY MEDICAL TECHNICIAN branches are unremarkable. IMPRESSION 1. No hemodynamically significant arterial stenosis within the head orneck is detected. No clear beading to suggest fibromuscular dysplasia isdetected within the neck. Portions of the supraclinoid ICA, and proximalmiddle and anterior cerebral circulation is degraded by artifact. However,no clear intracranial arterial stenosis or beading to suggest intracranialarterial fibromuscular dysplasia is detected. 2. Mild cerebral global volume loss and patchy high T2 signal white matterchanges. This pattern is nonspecific however most commonly reflects mildsmall vessel ischemic disease of aging. Melanie Chamberlain MD IMG CT ORDERABLES documented in this encounter Visit Diagnoses Diagnosis Coronary artery dissection Dissection of coronary artery documented in this encounter Administered Medications Inactive Administered Medications - up to 3 most recent administrations Medication Order MAR Action Action Date Dose Rate Site iohexoL (OMNIPAQUE 350) solution 100 mL 100 mL, intravenous, Once in imaging, 1 dose, Starting on Luisana 10/19/21 at 0938, Until Luisana 10/19/21 at 1014, Routine Given 10/19/2021 10:14 EST 200 mL documented in this encounter Orders Medications Ordered That Andres ht Not Have Been Administered Count Last Ordered Date First Ordered Date iohexoL (OMNIPAQUE 350) solution 100 mL 1 0 10/19/2021 documented in this encounter Care Teams Esol Instructor Relationship Specialty Start Date End Date Antonieta Parson FNP PCP - General 09/04/21 Suze Cain FNP [address] [place] [phone] Family Medicine - Primary Care 09/04/21 documented as of this encounter
--- OUTSIDE RECORDS SUMMARY | 2024-07-29 18:24 | XMS_ITS | Encounter Summary ---
Author Organization [facility] Address [address] [place] [address] Care Team Providers Care Wrapper Hand Name Role Phone Unavailable Primary Care Provider Unavailabl e Reason for Visit * Reason Comments Other Encounter Details Date Type Department Care Team (Late st Contact Info) Description 09/22/2016 Refill [facility] Adult Primary Care - [address] [id number] Cheryl Bustos MD [address] [place] [phone] Other Social History Tobacco Use Types Packs/Day Years Used Date Smoking Tobacco: Never Smokeless Tobacco: Never Alcohol Use Standard Drinks/Week Comments Yes 2 (1 standard drink = 0.6 oz pur e alcohol) Sex and Gender Information Value Date Recorded [...] Info) Description 08/10/2024 13:30 EST Office Visit [facility] [address] [place] [address] Melanie Chamberlain MD [address] [place] [address] 1 [place] [address] documented as of this encounter Visit Diagnoses Not on filedocumented in this encounter
--- OUTSIDE RECORDS SUMMARY | 2024-07-29 18:24 | XMS_ITS | Encounter Summary ---
Author Organization [facility] Address [address] [place] [address] Care Team Providers Care Nailhead Setter Name Role Phone Unavailable Primary Care Provider Unavailabl e Encounter Details Date Type Department Care Team (Late st Contact Info) Description 08/21/2021 Orders Only [facility] - [facility] CT Scan [address] [place] [address] Júnior Méndez Social History Tobacco Use Types [...] Info) Description 08/10/2024 13:30 EST Office Visit [facility] Cardiology Clinic [address] [place] [address] Melanie Chamberlain MD [address] [place] [address] 1 [place] [address] documented as of this encounter Visit Diagnoses Not on filedocumented in this encounter
--- OUTSIDE RECORDS SUMMARY | 2024-07-29 18:24 | XMS_ITS | Encounter Summary ---
[place] [address] Care Team Providers Care Shipping Support Clerk Name Role Phone Antonieta Parson APRN Primary Care Provider Encounter Details Date Type Department Care Team (Late st Contact Info) Description 03/30/2020 Telephone [place] [address] Morgan Lantigua Social History Tobacco Use Types Packs/Day Years Used Date Smoking Tobacco: Never Assessed Sex and Gender Information Value Date Recorded Sex Assigned at Not on file Gender Identity Not on file Sexual Orientation Not on file documented as of this encounter Miscellaneous Notes * Telephone Encounter - Morgan Lantigua - 03/30/2020 1:41 PM EDT The GI Telehealth Educate Team attempted to contact patient to check their readiness for their upcoming telehealth visit in GI. We were unable to reach the patient and left a message directing them to the [facility] Helpline at [phone] if they experience any technical issues before their appointment. Jennifer Lantigua Patient Experience Navigator Section of Gastroenterology and Hepatology documented in this encounter Plan of Treatment Not on file documented as of this encounter Visit Diagnoses Not on filedocumented in this encounter Care Teams Shipping Support Clerk Relationship Specialty Start Date End Date Antonieta Parson APRN PCP - General Family Medicine 03/08/20 documented as of this encounter
--- OUTSIDE RECORDS SUMMARY | 2024-07-29 18:24 | XMS_ITS | Clinical Summary ---
Author Organization [facility] Address [facility] [place] [address] Care Team Providers Care Etymology Teacher Name Role Phone Antonieta Parson MOOSE Primary Care Provider Allergies Active Allergy Reactions Criticality Noted Date Comments Sulfamethoxazole-Trimethop rim Rash 07/28/2016 Other reaction(s): Fever Medications Medication Sig Dispensed Refills Start Date End Date Status albuteroL 90 mcg/actuation HFA Aerosol Inhaler INHALE 1 TO 2 INHALATIONS Q 4 TO 6 H PRF WHEEZING 10/24/2019 Active aspirin 325 mg Tablet 1 tab(s) orally once a day 08/21/2017 Active metoprolol succinate XL (Toprol-XL) 25 mg Tablet Sustained Release 24 hr TAKE 1 TABLET BY MOUTH ONCE DAILY 02/29/2020 Active nitroGLYcerin (Nitrostat) 0.4 mg Tablet, Sublingual PLACE 1 TABLET UNDER TONGUE FOR CHEST PAIN EVERY 5 MINUTES - MAX 3 DOSES - CALL 911 AFTER FIRST DOSE 01/18/2020 Active magnesium 250 mg Tablet Take 500 mg by mouth. Active TONEY, ZINGIBER OFFICINALIS, ORAL Take 550 mg by mouth. Active TURMERIC ORAL Take 450 mg by mouth. Active Social History Tobacco Use Types Packs/Day Years Used Date Smoking Tobacco: Never Assessed Sex and Gender Information Value Date Recorded Sex Assigned at Not on file Gender Identity Not on file Sexual Orientation Not on file Plan of Treatment Health Maintenance Due Date Last Done Comments CT Colonography 1969 Colonoscopy 1969 Colorectal Cancer Screening 1969 FIT DNA 1969 FIT 1969 Sigmoidoscopy (10 year) with FIT yearly 1969 Sigmoidoscopy 1969 HIV screen 1987 Hepatitis C Screening 1987 Hepatitis B vaccine (0-59 yrs) (1) 1988 Tetanus/Diphtheria/Pertussis Vaccines (1 - Tdap) 03/15 HPV test 1999 PAP Smear 1999 Breast Cancer Share Decision Needed 2009 Breast Cancer screening 2009 Zoster vaccine (1 of 2) 2019 Advance Directive 2024 Covid-19 Vaccine (1 - season) 2024 Influenza (Flu) vaccine (1 o f 1 - Influenza standard series) 05/31/2024 Care Teams Etymology Teacher Relationship Specialty Start Date End Date Antonieta Parson APRN PCP - General Family Medicine 03/08/20
--- OUTSIDE RECORDS SUMMARY | 2024-07-29 18:24 | XMS_ITS | Encounter Summary ---
Author Organization [facility] Address [address] [place] [address] Care Team Providers Care Spiral Tube Winder Helper Name Role Phone Antonieta Parson DESIGN MAKER Primary Care Provider [phone] Suze Cain DESIGN MAKER Unavailable [phone] Melanie Chamberlain MD Unavailable [phone] Encounter Details Date Type Department Care Team (Late st Contact Info) Description 03/19/2020 Lab Requisition [facility] Pathology & Laboratory Medicine - [facility] [address] [place], [place] [address] Outr Resulting Lab, Provider Social History Tobacco Use Types Packs/Day Years [...] Info) Description 08/10/2024 13:30 EST Office Visit [facility] Cardiology Clinic [address] [place] [address] Melanie Chamberlain MD [address] [facility] 1 [place] [address] documented as of this encounter Procedures Procedure Name Priority Date/Time Associated Diagnosis Comments ZZCOVID-19 TEST [facility] PCR Today 03/19/2020 14:30 EDT COVID-19 TESTING Routine 03/19/2020 14:3 0 EDT documented in this encounter Results * COVID-19 TEST [facility] PCR (03/19/2020 14:30 EDT) Swab ENTIRE NASOPHARYNX / Unknown 03/19/2020 14:30 EDT 03/19/2020 23:16 EDT Provider Outr Resulting Lab MICROBIOLOGY - GENERAL ORDERABLES Performing Organization Address City/State/[facility] Co de Phone Number [facility] [address] [place] [address] * COVID-19 TESTING (03/19/2020 14:30 EDT) COVID-19 rt-PCR Result Negative Negative 03/20/2020 11:49 EDT [facility] Comment: This test has not been FDA cleared or approved. This test has been authorized by FDA under an EUA for use by authorized laboratories. This test has been authorized only for detection of nucleic acid from 2019-nCoV, not for any other viruses or pathogens. This test is only authorized for the duration of the declaration that circumstances exist justifying the authorization of emergency use of in vitro diagnostic tests for detection and/or diagnosis of 2019-nCoV under section 564(b)(1) of Act, 21 U.S.C ?? 360bbb-3(b) (1), unless the authorization is terminated or revoked sooner. Negative results do not preclude 2019-nCoV infection and should not be used as the sole basis for treatment or other patient management decisions. Negative results must be combined with clinical observations, patient history, and epidemiological information. Performed on the [employer] Cyclone Fusion instrument Performing Lab Cyclone [facility] 03/20/2020 11:49 EDT [facility] Swab 03/19/2020 14:3 0 EDT 03/19/2020 23:16 EDT Provider Outr Resulting Lab MICROBIOLOGY - GENERAL ORDERABLES [facility] [address] [place] [address] documented in this encounter Visit Diagnoses Not on filedocumented in this encounter Care Teams Spiral Tube Winder Helper Relationship Specialty Start Date End Date Antonieta Parson FNP PCP - General 09/04/21 Suze Cain FNP [address] [place] [phone] Family Medicine - Primary Care 09/04/21 Melanie Chamberlain MD [address] [place] [address] [address] [place] [phone] Consulting Clinician Cardiovascular Disease 08/22/22 documented as of this encounter
--- OUTSIDE RECORDS SUMMARY | 2024-07-29 18:24 | XMS_ITS | Encounter Summary ---
Author Organization [facility] Address [address] [place] [address] Care Team Providers Care Repairer Handtools Name Role Phone Unavailable Primary Care Provider Unavailabl e Reason for Visit * Reason Onset Date Comments Other 02/24/2020 LAB RESULTS Encounter Details Date Type Department Care Team (Late st Contact Info) Description 02/24/2020 Telephone [facility] Cardiology Clinic [address] [place] [address] Yesika Yoon MD [address] [place] [phone] Other (LAB RESULTS) Social History Tobacco Use Types Packs/Day Years [...] No 07/28/2016 documented as of this encounter Miscellaneous Notes * Telephone Encounter - Adi Escamilla RN - 02/24/2020 1648 EDT Left detailed message for patient relaying information from provider. Encouraged patient to return call to the office if they have any questions or need clarification. * Telephone Encounter - Yesika Yoon MD - 02/24/2020 1641 EDT Agree with PCP. Can focus on exercise, diet, etc. Can avoid statin therapy for now. * Telephone Encounter - Romana Rajput - 02/24/2020 1530 EDT Patient sent an email to my email address (which she obtained when I scheduled her Zoom visit and e-mailed her the link). The e-mail contained a letter from her PCP regarding her recent Cholesterol lab work. E-mail scanned into chart also copy given to Dr. Yoon along with this TE as pt wants his input on her lab results. documented in this encounter Plan of Treatment Upcoming Encounters Date Type Department Care Team (Late st Contact Info) Description 08/10/2024 13:30 EST Office Visit [facility] Cardiology Clinic [address] [place] [address] Melanie Chamberlain MD [address] [place] [address] 1 [place] [address] documented as of this encounter Visit Diagnoses Not on filedocumented in this encounter
--- OUTSIDE RECORDS SUMMARY | 2024-07-29 18:24 | XMS_ITS | Encounter Summary ---
Author Organization [facility] Address [address] [place] [address] Care Team Providers Care Lead Php Developer Name Role Phone Unavailable Primary Care Provider Unavailabl e Reason for Referral * Radiology Services (Routine/Next Available) - Closed Specialty Diagnoses / Procedures Referred By Brynn khan Referred To Contact Diagnoses Coronary artery dissection Procedures CT ANGIO ABDOMEN Melanie Chamberlain MD [address] [phone] [facility] Referral ID Status Reason Start Date Expiration Date Visits Re quested Visits Authorized [id number] Closed 08/23/2021 02/19/2022 1 1 * Radiology Services (Routine/Next Available) - Closed Specialty Diagnoses / Procedures Referred By Brynn khan Referred To Contact Diagnoses Coronary artery dissection Procedures CT ANGIO HEAD NECK Melanie Chamberlain MD [address] [phone] [facility] Referral ID Status Reason Start Date Expiration Date Visits Re quested Visits Authorized [id number] Closed 08/21/2021 02/17/2022 1 1 Reason for Visit * Reason Comments Follow-up Coronary Artery Disease Encounter Details Date Type Department Care Team (Late st Contact Info) Description 08/21/2021 9:15 EST Office Visit [facility] - [facility] Cardiology Clinic [address] [place], [place] [address] Melanie Chamberlain MD [address] [facility] Level [address] [place] [address] Coronary artery dissection (Primary Dx) Social History Tobacco Use Types Packs/Day Years [...] on file documented as of this encounter Last Filed Vital Signs Vital Sign Reading Time Taken Comments Blood Pressure 132/80 08/21/2021 0910 EST Pulse 76 08/21/2021 0910 EST Temperature - - Respiratory Rate - - Oxygen Saturation 96% 08/21/2021 0910 EST Inhaled Oxygen Concentration - - Weight 116.5 kg (256 lb 12.8 oz) 08/21/2021 0910 EST Height 167.6 cm (5' 6) 08/21/2021 0910 EST Body Mass Index 41.45 08/21/2021 0910 EST documented in this encounter Functional Status Functional Status Response [...] Da te metoprolol SUCCinate (TOPROL-XL) 25 mg tabletIndications:Coronar y artery dissection 1 tab(s) orally once a day 90 Tablet 5 08/21/2021 10/29/2022 documented in this encounter Progress Notes * Melanie Chamberlain MD - 08/21/2021 0915 EST [facility] Cardiology Office Visit Subjective: Chief Complaint(s): Follow-up and Coronary Artery Disease HPI: 51 year old female with history of SCAD (2016) s/p two SIENNA to LAD with persitent distal 100% occlusion who presents for yearly follow-up. She was last seen via telemedicine by Dr. Yoon in 01/2020. She has been doing well since then. No episodes of chest discomfort. She does note she gets short of breath when trying to walk significant distances, however this is not a new symptom. No other card iac history besides the dissection. Has not been screened yet for fibromuscular dysplasia. Outpatient Medications Marked as Taking for the 08/21/21 encounter (Office Visit) with Melanie Chamberlain MD Medication Sig ??? aspirin 325 mg tablet 1 tab(s) orally once a day ??? busPIRone (BUSPAR) 15 mg tablet TAKE 1 TABLET BY MOUTH TWICE DAILY. TOTAL DAILY DOSE 30 MG ??? citalopram (CELEXA) 40 mg tablet Take 40 mg by mouth daily. ??? levalbuterol (XOPENEX HFA) 45 mcg/actuation inhaler Inhale 45 mcg as directed every 6 hours as needed. ??? loratadine (CLARITIN) 10 mg tablet Take 10 mg by mouth daily. ??? metoprolol SUCCinate (TOPROL-XL) 25 mg tablet 1 tab(s) orally once a day ??? [DISCONTINUED] metoprolol SUCCinate (TOPROL-XL) 25 mg tablet 1 tab(s) orally once a day ??? nitroGLYCERIN (NITROSTAT) 0.4 mg SL tablet 1 tab(s) sublingually every 5 minutes, as needed I have reviewed current problem list and current medications. ROS: Review of Systems Constitutional: Negative for malaise/fatigue. Respiratory: Negative for shortness of breath and wheezing. Cardiovascular: Negative for chest pain, palpitations, leg swelling and PND. Musculoskeletal: Negative for myalgias. Neurological: Negative for loss of consciousness. All other systems reviewed and are negative. Objective: Examination: Vitals: BP 132/80 (BP Cuff Location: Right arm, BP Patient Position: Sitting, BP Cuff Sizes: Adult, large) Pulse 76 Ht 167.6 cm (66) Wt (!) 116.5 kg (256 lb 12.8 oz) SpO2 96% BMI 41.45 kg/m?? Bodymass index is 41.45 kg/m??. Physical Exam Constitutional: Appearance: She is obese. Cardiovascular: Rate and Rhythm: Normal rate. Heart sounds: No murmur heard. Pulmonary: Effort: Pulmonary effort is normal. No respiratory distress. Breath sounds: No wheezing. Musculoskeletal: General: No swelling. Neurological: Mental Status: She is alert. Labs: Lab Results Component Value Date CHOL 181 07/28/2016 HDL 40 07/28/2016 LDLBASE 105 07/28/2016 TRIG 179 07/28/2016 CHOLHDL 4.5 07/28/2016 BUN Date Value Ref Range Status 07/28/2016 10 10 - 26 mg/dl Final Creatinine Date Value Ref Range Status 07/30/2016 0.70 0.52 - 1.04 mg/dl Final Potassium Date Value Ref Range Status 07/30/2016 4.4 3.5 - 5.0 mEq/L Final WBC Date Value Ref Range Status 07/30/2016 10.03 4.0 - 12.4 K/cmm Final Hemoglobin Date Value Ref Range Status 07/30/2016 12.0 11.6 - 15.2 gm/dl Final PLT Date Value Ref Range Status 07/30/2016 283 141 - 377 K/cmm Final Lab Results Component Value Date HGBA1C 5.4 07/28/2016 No results found for: NTBNP Assessment & Plan: 51 year old female with history of SCAD (2016) s/p two SIENNA to LAD with persitent distal 100% occlusion who presents for yearly follow-up. SCAD: s/p two SIENNA to LAD in 2016. No residual symptoms. Not yet screened for fibromuscular dysplasia. - Advised only needs to take 81 mg aspirin daily - CTA Head/neck and abdomen to screen for fibromuscular dysplasia - continue metoprolol 25 mg daily Return to clinic in one year I spent a total of 35 minutes on the date of this encounter as indicated in the above progress note. Melanie Chamberlain MD documented in this encounter Plan of Treatment Upcoming Encounters Date Type Department Care Team (Late st Contact Info) Description 08/10/2024 13:30 EST Office Visit [facility] Cardiology Clinic [address] [place] [address] Melanie Chamberlain MD [address] [place] [address] [address] [place] [address] documented as of this encounter Results * CT ANGIO ABDOMEN [...] the 3D rendering on an independent workstation, [employer], prior to interpretation. CTA FINDINGS: The abdominal [...] origin of theceliac trunk. Melanie Chamberlain MD [facility] [place] CT ORDERABLES * CT ANGIO HEAD NECK [...] cerebral arteries appear patent. The more distal COMEDIAN branches are unremarkable. Procedure Note Micah Johnson [...] posterior cerebral arteries appear patent. The moredistal COMEDIAN branches are unremarkable. IMPRESSION 1. No hemodynamically [...] ischemic disease of aging. Melanie Chamberlain MD [facility] CT ORDERABLES * (ABNORMAL) BASIC METABOLIC PANEL (BMP) (09/04/2021 15:27 EST) Sodium 139 136 - 145 mmol/L 09/04/2021 17:04 [facility] Potassium 3.8 3.5 - 5.0 mmol/L 09/04/2021 17:04 [facility] Chloride 107 96 - 110 mmol/L 09/04/2021 17:04 [facility] CO2 Total 21(L) 22 - 32 mmol/L 09/04/2021 17:04 [facility] Anion Gap 11 8 - 16 09/04/2021 17:04 [facility] Glucose 133(H) 70 - 100 mg/dL 09/04/2021 17:04 [facility] Calcium 9.1 8.5 - 10.5 mg/dL 09/04/2021 17:04 [facility] BUN 14 10 - 26 mg/dL 09/04/2021 17:04 [facility] Creatinine 0.72 0.52 - 1.04 mg/dL 09/04/2021 17:04 [facility] eGFR 97 >60 mL/min/1.73 m2 09/04/2021 17:04 [facility] Blood VENOUS BLOOD / Unknown Venipuncture / Unknown 09/04/2021 15:27 EST 09/04/2021 16:14 EST Melanie Chamberlain MD CHEMISTRY & BLOOD GA S ORDERABLES [facility] [address] [place] [address] documented in this encounter Visit Diagnoses Diagnosis Coronary artery dissection- Primary Dissection of coronary artery Coronary artery dissection Dissection of coronary artery documented in this encounter Discontinued Medications Medication Sig Discontinue Reason Start Date End Da te metoprolol SUCCinate (TOPROL-XL) 25 mg tablet 1 tab(s) orally once a day Reorder 04/06/2021 08/21/2021 documented as of this encounter Historical Medications * This list may reflect changes made after this encounter. Medication Sig Dispensed Refills Start Date End Date loratadine (CLARITIN) 10 mg tablet Take 1 Tablet by mouth daily. 08/09/2021 busPIRone (BUSPAR) 15 mg tablet TAKE 1 TABLET BY MOUTH TWICE DAILY. TOTAL DAILY DOSE 30 MG 07/31/2021 citalopram (CELEXA) 40 mg tablet Take 1 Tablet by mouth daily. 08/01/2021 added in this encounter
--- OUTSIDE RECORDS SUMMARY | 2024-07-29 18:24 | XMS_ITS | Encounter Summary ---
Author Organization [facility] Address [address] [place] [address] Care Team Providers Care Correction Officer Reformatory Name Role Phone Antonieta Parson MANAGER EDUCATIONAL Primary Care Provider Suze Cain MANAGER EDUCATIONAL Unavailable [phone] Melanie Chamberlain MD Unavailable [phone] Reason for Visit * Reason Comments Follow-up Encounter Details Date Type Department Care Team (Late st Contact Info) Description 08/22/2022 15:00 EST Office Visit [facility] Cardiology Clinic [address] [place], [place] [address] Melanie Chamberlain MD 111 [facility] 1 [place] [address] Coronary artery dissection (Primary Dx) Social History Tobacco Use Types Packs/Day Years Used Date Smoking Tobacco: Never Smokeless Tobacco: Never Tobacco Cessation:Counseling Given: Not Answered Alcohol Use Standard Drinks/Week Comments Yes 2 [...] Sign Reading Time Taken Comments Blood Pressure 130/78 08/22/2022 1456 EST Pulse 92 08/22/2022 1456 EST Temperature - - Respiratory Rate - - Oxygen Saturation 98% 08/22/2022 1456 EST Inhaled Oxygen Concentration - - Weight 118.4 kg (261 lb 1.6 oz) 08/22/2022 1456 EST Height 167.6 cm (5' 6) 08/22/2022 1456 EST Body Mass Index 42.14 08/22/2022 1456 EST documented in this encounter Functional Status [...] No 07/28/2016 documented as of this encounter Progress Notes * Melanie Chamberlain MD - 08/22/2022 1500 EST [facility] Cardiology Office Visit Subjective: Chief Complaint(s): Follow-up HPI: 52 year old female with history of SCAD (2015) s/p two SIENNA to LAD with persitent distal 100% occlusion who presents for yearly follow-up. Since our last visit, one year ago she has been doing well. Continues to have shortness of breath that she connects to her weight. Frustrated by her continued weight gain. No anginal pain. No other cardiac history besides the dissection. Screed for fibromuscular dysplasia in 10/21 with no evidence. Outpatient Medications Marked as Taking for the 08/22/22 encounter (Office Visit) with Melanie Chamberlain MD [...] 1 tab(s) orally once a day ??? nitroglycerin (NITROSTAT) 0.4 mg SL tablet 1 [...] and are negative. Objective: Examination: Vitals: BP 130/78 (BP Cuff Location: Right arm, BP Patient Position: Sitting, BP Cuff Sizes: Adult, large) Pulse 92 Ht 167.6 cm (66) Wt (!) 118.4 kg (261 lb 1.6 oz) SpO2 98% BMI 42.14 kg/m?? Body mass index is 42.14 kg/m??. Physical Exam Constitutional: Appearance: She is [...] 07/28/2016 BUN Date Value Ref Range Status 09/04/2021 14 10 - 26 mg/dL Final 07/28/2016 10 10 - 26 mg/dl Final Creatinine Date Value Ref Range Status 09/04/2021 0.72 0.52 - 1.04 mg/dL Final 07/30/2016 0.70 0.52 - 1.04 mg/dl Final Potassium Date Value Ref Range Status 09/04/2021 3.8 3.5 - 5.0 mmol/L Final 07/30/2016 4.4 3.5 - 5.0 mEq/L Final WBC Date Value Ref Range Status 07/30/2016 10.03 4.0 - 12.4 K/cmm Final Hemoglobin Date Value Ref Range Status 07/30/2016 12.0 11.6 - 15.2 gm/dl Final PLT Date Value Ref Range Status 07/30/2016 283 141 - 377 K/cmm Final Lab Results Component Value Date HGBA1C 5.4 07/28/2016 No results found for: NTBNP Assessment & Plan: 52 year old female with history of SCAD (2016) s/p two SIENNA to LAD with persitent distal 100% occlusion who presents for yearly follow-up. SCAD: s/p two SIENNA to LAD in 2016. No residual symptoms. Screened for fibromuscular dysplasia- negative. - Continue 81 mg aspirin daily - continue metoprolol 25 mg daily Return to clinic in one year I spent a total of 23 minutes on the date of this encounter as indicated in the above progress note. Melanie Chamberlain MD documented in this encounter Plan of Treatment Upcoming Encounters Date Type Department Care Team (Late st Contact Info) Description 08/10/2024 13:30 EST Office Visit [facility] Cardiology Clinic [address] [place] [address] Melanie Chamberlain MD 111 [facility] 1 [place] [phone] documented as of this encounter Visit Diagnoses Diagnosis Coronary artery dissection- Primary Dissection of coronary artery documented in this encounter Care Teams Correction Officer Reformatory Relationship Specialty Start Date End Date Antonieta Parson FNP PCP - General 09/04/21 Suze Cain FNP [address] [place] [phone] Family Medicine - Primary Care 09/04/21 Melanie Chamberlain MD [address] [place] [phone] Consulting Clinician Cardiovascular Disease 08/22/22 documented as of this encounter
--- OUTSIDE RECORDS SUMMARY | 2024-07-29 18:24 | XMS_ITS | Encounter Summary ---
Author Organization [facility] Address [address] [place] [address] Care Team Providers Care Invoice Checker Name Role Phone Unavailable Primary Care Provider Unavailabl e Reason for Visit * Reason Onset Date Comments Medications Refill 04/06/2021 Encounter Details Date Type Department Care Team (Late st Contact Info) Description 04/06/2021 Telephone [facility] [address] [place], [place] [address] Melanie Chamberlain MD [address] [place] [address] 1 [place] [address] Medications Refill Social History Tobacco [...] tablet 1 tab(s) orally once a day 90 Tablet 04/06/2021 08/21/2021 documented in this encounter Miscellaneous Notes * Telephone Encounter - Ruba Luna RN - 04/06/2021 1424 EDT Patient over due for OV, has appt. Scheduled with 05/17/21. Escript sent to pharmacy X 90 days with no RF * Telephone Encounter - Gabriela Johnson MA - 04/06/2021 1356 EDT Patients called and states that the patient needs a refill on her metoprolol sent into [address] [facility] in [place], [place]. If there are any questions you can call [phone] documented in this encounter Plan of Treatment Upcoming Encounters Date Type Department Care Team (Late st Contact Info) Description 08/10/2024 13:30 EST Office Visit [facility] [address] [place] [address] Melanie Chamberlain MD [address] [place] [address], [facility] [address] [place] [address] documented as of this encounter Visit Diagnoses Not on filedocumented in this encounter Discontinued Medications Medication Sig Discontinue Reason Start Date End Da te metoprolol XL (TOPROL-XL) 25 mg tablet 1 tab(s) orally once a day Reorder 04/06/2021 documented as of this encounter
--- OUTSIDE RECORDS SUMMARY | 2024-07-29 18:24 | XMS_ITS | Encounter Summary ---
Author Organization [facility] Address [address] [place] [address] Care Team Providers Care Manager English Name Role Phone Unavailable Primary Care Provider Unavailabl e Encounter Details Date Type Department Care Team (Latest Contact Info) Description 01/15/2018 7:29 EDT - 01/15/2018 23:59 EDT Hospital Encounter [address] [address] Unknown, Provider, Discharge Disposition: Home or Self Care Social [...] 1 tab(s) orally once a day 08/21/2017 aspirin 81 mg EC tablet Take 1 Tab by mouth daily. 30 Tab 11 07/30/2016 02/08/2020 atorvastatin (LIPITOR) 20 mg tablet Take 1 Tab by mouth daily. 30 Tab 1 07/30/2016 02/10/2020 clopidogrel (PLAVIX) 75 mg tablet Take 1 Tab by mouth daily. 30 Tab 11 07/30/2016 02/10/2020 metoprolol XL (TOPROL-XL) 25 mg tablet Take 1 Tab by mouth daily. 30 Tab 1 07/30/2016 02/08/2020 nitroGLYCERIN (NITROSTAT) 0.[address] 1 Tab under the tongue every 5 minutes as needed for Chest Pain. 30 Tab 1 07/30/2016 02/08/2020 documented as of this encounter Discharge Disposition Disposition Code Departure Means Destination Home or Self Residential documented in this encounter Plan of Treatment Upcoming Encounters Date Type Department Care Team (Late st Contact Info) Description 08/10/2024 13:30 EST Office Visit [facility] [address] [place] [address] Melanie Chamberlain MD [address] [place] [address], [facility] [address] [place] [phone] documented as of this encounter Visit Diagnoses Not on filedocumented in this encounter
--- OUTSIDE RECORDS SUMMARY | 2024-07-29 18:24 | XMS_ITS | Encounter Summary ---
Author Organization [facility] Address [address] [place] [address] Care Team Providers Care Nurse Coordinator Name Role Phone Antonieta Parson GLOBAL LEAD Primary Care Provider [phone] Suze Cain GLOBAL LEAD Unavailable Reason for Visit * Reason Onset Date Comments Other 07/26/2022 Encounter Details Date Type Department Care Team (Late st Contact Info) Description 07/26/2022 Telephone [facility] [address] [place] [id number] Melanie Chamberlain MD [address] [facility] 1 [place] [address] Other Social History Tobacco Use Types Packs/Day [...] Telephone Encounter - Adi Escamilla RN - 07/26/2022 1626 EDT Called spouse's phone that was left with busy signal multiple times. Called home number and left detailed message for pt/spouse: * Cardiology wouldn't be prescribing diabetic medications or offering advice on treatment of diabetes or gastric bypass * Recommend speaking with PCP and asking about possible referral for Endocrinology (If PCP feels isappropriate) * Telephone Encounter - Adi Escamilla RN - 07/26/2022 [address] Chamberlain * Telephone Encounter - Sergei Medina - 07/26/2022 1421 EDT Patients spouse called to discuss possible gastric bypass surgery that was mentioned in her last appt with Dr. Chamberlain. She was hoping to be put on a diabetes medication as an alternative to surgery. Patients spouse said patient was willing to take an appt to discuss- pt already has scheduled appt for 08/22. Pts spouse said they didn't want to wait until then. Can someone give them a call to discuss these concerns regarding this surgery and medication- thank you documented in this encounter Plan of Treatment Upcoming Encounters Date Type Department Care Team (Late st Contact Info) Description 08/10/2024 13:30 EST Office Visit [facility] [address] [place] [phone] Melanie Chamberlain MD [address] [facility] [place], [address] [place] [address] documented as of this encounter Visit Diagnoses Not on filedocumented in this encounter Care Teams Nurse Coordinator Relationship Specialty Start Date End Date Antonieta Parson FNP PCP - General 09/04/21 Suze Cain FNP [address] [place] [address] Family Medicine - Primary Care 09/04/21 documented as of this encounter
--- OUTSIDE RECORDS SUMMARY | 2024-07-29 18:24 | XMS_ITS | Encounter Summary ---
Author Organization [facility] Address [address] [place] [address] Care Team Providers Care Water Supply Technician Name Role Phone Antonieta Parson SMALL ENGINE TRAINER Primary Care Provider [phone] Suze Cain SMALL ENGINE TRAINER Unavailable [phone] Melanie Chamberlain MD Unavailable [phone] Encounter Details Date Type Department Care Team (Late st Contact Info) Description 02/11/[address] [facility] Pathology & Laboratory Medicine - [facility] [address] [place], [place] [address] Outr Resulting Lab, Provider Social History Tobacco [...] Info) Description 08/10/2024 13:30 EST Office Visit [facility] [address] [place] [address] Melanie Chamberlain MD [address] [place] [address] [address] [place] [address] documented as of this encounter Procedures Procedure Name Priority Date/Time Associated Diagnosis Comments CELIAC DISEASE PANEL Routine 02/10/2020 8:00 EDT documented in this encounter Results * (ABNORMAL) CELIAC DISEASE PANEL (02/10/2020 8:00 EDT) Tissue Transglutaminase Antibody IGA <1.2 <4.0 U/mL 02/15/2020 12:50 EDT [facility] Comment: A negative result may be due to IgA deficiency and does not rule out celiac disease. ? Negative: ??<4.0 U/mL ? Weak Positive: ??4.0 - 10.0 U/mL ? Positive: ??>10.0 U/mL Results were obtained with the [employer] QUANTA Lite R h-tTG IgA BETH assay on the [employer] DSX. IgA <13(L) 85 - 499 mg/dL 02/15/2020 12:50 EDT [facility] Celiac Disease Interpretation Total serum IgA deficiency; Recommend referral to gastroenterology specialist for additional evaluation. 02/15/2020 12:50 EDT [facility] Blood VENOUS BLOOD / Unknown 02/10/2020 8:00 EDT 02/11/2020 16:23 EDT Provider Outr Resulting Lab IMMUNOLOGY A ND SEROLOGY ORDERABLES [facility] [address] [place] [address] documented in this encounter Visit Diagnoses Not on filedocumented in this encounter Care Teams Water Supply Technician Relationship Specialty Start Date End Date Antonieta Parson FNP PCP - General 09/04/21 Suze Cain FNP [address] [place] [address] Family Medicine - Primary Care 09/04/21 Melanie Chamberlain MD [address] [place] [address] [address] Consulting Clinician Cardiovascular Disease 08/22/22 documented as of this encounter
--- OUTSIDE RECORDS SUMMARY | 2024-07-29 18:24 | XMS_ITS | Encounter Summary ---
Author Organization [facility] Address [address] [place] [address] Care Team Providers Care [place] Machine Operator Name Role Phone Unavailable Primary Care Provider Unavailabl e Encounter Details Date Type Department Care Team (Late st Contact Info) Description 02/08/2020 Abstract [facility] [address] [place] [address] Cinthia Oswald MA Social History Tobacco Use Types Packs/Day Years [...] Info) Description 08/10/2024 13:30 EST Office Visit [facility] [address] [place] [address] Melanie Chamberlain MD [address] [place] [address], [address] [place] [address] documented as of this encounter Visit Diagnoses Not on filedocumented in this encounter Discontinued Medications Medication Sig Discontinue Reason Start Date End Da te aspirin 81 mg EC tablet Take 1 Tab by mouth daily. Abstraction 07/30/2016 02/08/2020 metoprolol XL (TOPROL-XL) 25 mg tablet Take 1 Tab by mouth daily. Abstraction 07/30/2016 02/08/2020 nitroGLYCERIN (NITROSTAT) 0.[address] 1 Tab under the tongue every 5 minutes as needed for Chest Pain. Abstraction 07/30/2016 02/08/2020 documented as of this encounter Historical Medications * This list may reflect changes made after this encounter. Medication Sig Dispensed Refills Start Date End Date nitroglycerin (NITROSTAT) 0.4 mg SL tablet 1 tab(s) sublingually every 5 minutes, as needed aspirin 325 mg tablet 1 tab(s) orally once a day 08/21/2017 levalbuterol (XOPENEX HFA) 45 mcg/actuation inhaler Inhale 1 Puff as directed every 6 hours as needed. metoprolol XL (TOPROL-XL) 25 mg tablet 1 tab(s) orally once a day 04/06/2021 added in this encounter
--- OUTSIDE RECORDS SUMMARY | 2024-07-29 18:24 | XMS_ITS | Encounter Summary ---
[place] [address] Care Team Providers Care Sign Language Teacher Name Role Phone Antonieta Parson APRN Primary Care Provider Reason for Referral * Consultation (Routine) - Closed Specialty Diagnoses / Procedures Referred By Brynn khan Referred To Contact Gastroenterology Diagnoses Diarrhea, unspecified type Bloating Venessa Parson APRN [address] [facility] [place] [address] Helena Shaikh, [facility] [place] [address] Referral ID Status Reason Start Date Expiration Date V isits Requested Visits Authorized [id number] Closed Consult, Test & Treat 03/31/2020 03/31/2021 1 1 Reason for Visit * Consultation (Routine) - Specialty Diagnoses / Procedures Referred By Brynn khan Referred To Contact Gastroenterology Diagnoses IGA deficiency, h/o gluten intolerance,food allergy Procedures CONSULTATION Antonieta Parson APRN [address] [place] [address] [facility] [address] [place] [address] Referral ID Status Reason Start Date Expiration Date V isits Requested Visits Authorized [id number] Consult, Test & Treat PCP Updated and/or Approved 03/08/2020 03/08/2021 6 6 Encounter Details Date Type Department Care Team (Latest Contact Info) Description 03/31/2020 10:30 AM EDT TH Visit (TeleHealth) Gastroenterology at [facility] [place] [address] Venessa Parson, SUSTAINABILITY COMMUNICATOR [place] [address] Diarrhea, unspecified type; Bloating Social History Tobacco Use Types Packs/Day Years Used Date Smoking Tobacco: Never Assessed Sex and Gender Information Value Date Recorded Sex Assigned at Not on file Gender Identity Not on file Sexual Orientation Not on file documented as of this encounter Patient Instructions * Patient Instructions* Venessa Parson, MOOSE - 03/31/2020 10:30 AM EDT 1. Blood work and stool studies at [facility] 2. Consultation with our clinical animal taxonomist, Cat 3. minimize caffeine and sugar-free products (i.e. Gum) and dairy products. Do this sequentially for 2 weeks each and re-assess symptoms. - fiber: start psyllium (Metamucil) daily as a bulking agent. Get the no sugar added version without artifical sweeteners. Start with one teaspoon daily for one week, then two teaspoons daily for one week, then one tablespoon daily for maintenance. Can increase slowly to 2 tablespoons daily if needed. 4. Avoid gluten, lactose, high fructose corn syrup, high fructose foods, dried beans, cruciferous veggies (broccoli, cauliflower, brussels sprouts), onions, garlic, sugar alcohols for 2 weeks. If no benefit after 2 weeks, stop. If you are feeling better after 2 weeks, continue the diet for 4 weeks.Then reintroduce one food every week. Start with a small volume and gradually increase over the course of the week. *Low-FODMAP diet for 2-4 weeks. Gradually reintroduce one food at a time to identify triggers. ADDITIONAL RESOURCES: *The [facility] has a wonderful marbella available for this diet *We also recommend a blog called www.Sixty Second Parent IF SYMPTOMS DONT IMPROVE AFTER TWO WEEKS, please stop the diet. If it is helping, please continue the diet for 4 weeks. 5. Follow up 3 months documented in this encounter Progress Notes * Venessa Parson APRN - 03/31/2020 10:30 AM EDT [facility]LE[facility]IC[facility] Chief Complaint: Helena Mora is a 50 y.o. patient referred for consultation by Dr. Parson for gluten intolerance and food allergies. History of Present Illness: 50 y.o. female with a history significant for IgA deficiency and s/p CCY (approximately 2012) Long history of stomach issues following CCY. Was concerned about a gluten intolerance. She reportsa facial tingling following consumption of gluten. She also experiences this sensation with other foods, but has been unable to identify other triggers. Endorses mild rosacea following gluten consumption. Endorses abdominal pain may occur on a daily basis. It does seem to be connected with what I eat. I just can't figure out what. Diarrhea with fatty foods. Good appetite. Denies early satiety. Denies chronic NSAID use. She does take 1/2 regular strength aspirin on a daily basis for approximately one year. Takes magnesium- 500mg once daily for approximately one month. Denies blood and mucus in stools. Endorses abdominal cramping and fecal urgency. Denies fecal incontinence. May move her bowels at least three times a day. May go up to 5 times a day. Nausea without vomiting. Occurring 1-2 times a week. Denies unintentional weight loss. Denies anemia. Bloating and gas. Denies constipation. Denies straining and difficulty emptying. Denies dysphagia, odynophagia, and globus. Reflux symptoms several days per week. Doesn't take anything for this issue. Has tried eliminating gluten. This hasn't made a huge change in terms of symptoms. Endorses RI approximately four years ago. Has tried sigrid, turmeric, and magnesium. Denies disordered eating Denies abuse history Review of systems: 14-point review of systems reviewed and negative except as above. Medications: No outpatient medications prior to visit. No facility-administered medications prior to visit. Allergies: has no allergies on file. Past Medical History: has no past medical history on file. Past Surgical History: 1. CCY 2. Tubal ligation Family History: denies family history of colon cancer, IBD, or celiac disease in mother father or other family members Social History: Denies nicotine use. 1-2 glasses of wine per week. Denies MJ use. No Physical Examination performed during this telemedicine visit Laboratory studies, imaging, and procedures: 1. TTG/IgA 03/02/20; normal 2. IgA 03/02/20; <13 3. Colonoscopy 03/23/20 outside hospital; normal per patient report Assessment/Plan: Ms. Mora is a 50 y.o. patient with a long history of GI symptoms following a cholecystectomy approximately 7 years ago. Her symptoms are characterized by bloating and diarrhea. There does seem to be a dietary component. She has tried eliminating gluten without relief of symptoms. She does not have any red flag warning signs. Previous work-up includes a TTG IgA, IgA, and a colonoscopy (done last week). Unfortunately, the TTG IgA is not accurate not only due to her IgA deficiency, but also because she has not been consuming gluten for the past year. This test can be done up to 3 months afterstopping gluten. We did discuss the utility of a gluten challenge. She declined. She is more interested in dietary modifications. Her symptoms may represent celiac disease, but this seems less likely. Her symptoms may also represent IBS, IBD, or small intestinal bacterial overgrowth. It would be prudent to evaluate for systemic immunodeficiency given her IgA deficiency. Recommendations: DIAGNOSTICS to be done at [facility], before our next follow-up visit which will consolidate care recommendations based on testing Lab tests - basic labs: CMP, CBC - labs to evaluate for chronic diarrhea: giardia/crypto, calprotectin, culture - labs to evaluate for delayed motility: celiac panel and TSH - labs to evaluate for systemic immunodeficiency; IgG, IgM TREATMENT - dietary recommendations: minimize caffeine and sugar-free products (i.e. Gum) and dairy products.Do this sequentially for 2 weeks each and re-assess symptoms. - behavioral recommendations: schedule toileting in the morning and before social activities - fiber: start psyllium (Metamucil) daily as a bulking agent. Get the no sugar added version without artifical sweeteners. Start with one teaspoon daily for one week, then two teaspoons daily for one week, then one tablespoon daily for maintenance. Can increase slowly to 2 tablespoons daily if needed. -One time consultation with GI clinical animal taxonomist -Avoid gluten, lactose, high fructose corn syrup, high fructose foods, dried beans, cruciferous veggies (broccoli, cauliflower, brussels sprouts), onions, garlic, sugar alcohols for 2 weeks. If no benefit after 2 weeks, stop. If you are feeling better after 2 weeks, continue the diet for 4 weeks. Then reintroduce one food every week. Start with a small volume and gradually increase over the course of the week. *Low-FODMAP diet for 2-4 weeks. Gradually reintroduce one food at a time to identify triggers. ADDITIONAL RESOURCES: *The [facility] has a wonderful marbella available for this diet *We also recommend a blog called www.Six[employer] Parent IF SYMPTOMS DONT IMPROVE AFTER TWO WEEKS, please stop the diet. If it is helping, please continue the diet for 4 weeks. RTC with me in 3 months I spent 36 minutes face to face with the patient. 35 minutes were spent on counseling and discussion as of the above during this telemedicine visit. The patient was located in [place] at the time of their visit. Venessa Parson APR[place] [facility] [place] [address] documented in this encounter Plan of Treatment Scheduled Referrals Name Type Priority Associated Diagnoses Order Schedule Referral to Gastroenterology Outpatient Referral Routine Diarrhea, unspecified type Bloating Ordered: 03/31/2020 documented as of this encounter Visit Diagnoses Diagnosis Diarrhea, unspecified type Bloating Flatulence, eructation, and gas pain documented in this encounter Care Teams Sign Language Teacher Relationship Specialty Start Date End Date Antonieta Parson APRN PCP - General Family Medicine 03/08/20 documented as of this encounter
--- OUTSIDE RECORDS SUMMARY | 2024-07-29 18:24 | XMS_ITS | Encounter Summary ---
Author Organization [facility] [place] [address] Care Team Providers Care Parts Salesman Name Role Phone Antonieta Parson APRN Primary Care Provider Encounter Details Date Type Department Care Team (Late st Contact Info) Description 04/04/2020 Telephone [place] [address] Radha Salguero Social History Tobacco Use Types Packs/Day Years Used Date Smoking Tobacco: Never Assessed Sex and Gender Information Value Date Recorded Sex Assigned at Not on file Gender Identity Not on file Sexual Orientation Not on file documented as of this encounter Miscellaneous Notes * Telephone Encounter - Radha Salguero - 04/12/2020 9:24 AM EDT Left third message for patient to contact the office for scheduling. Per Venessa ELLIOTT, the patient needs to be scheduled for a one-time consultation with Cat and be scheduled for a 3 month gif (June) with her. A letter has been sent asking the patient to contact the office for scheduling. * Telephone Encounter - Radha Salguero - 04/06/2020 10:17 AM EDT Left second message for patient to contact the office for scheduling. Per Venessa IB, the patient needs to be scheduled for a one-time consultation with Cat and be scheduled for a 3 month gif (June)with her. * Telephone Encounter - Radha Salguero - 04/04/2020 9:56 AM EDT Left message for patient to contact the office for scheduling. Per Venessa ELLIOTT, the patient needs to be scheduled for a one-time consultation with Cat and be scheduled for a 3 month gif (June) with her. documented in this encounter Plan of Treatment Not on file documented as of this encounter Visit Diagnoses Not on filedocumented in this encounter Care Teams Parts Salesman Relationship Specialty Start Date End Date Antonieta Parson APRN PCP - General Family Medicine 03/08/20 documented as of this encounter
--- OUTSIDE RECORDS SUMMARY | 2024-07-29 18:24 | XMS_ITS ---
Author Organization Unknown Address [address] [place] [phone] Phone Care Team Providers Care Computer Game Tester Name Role Phone LINDA Norris Attending Unavailable LISA Belle Primary Unavailable Social History Type Status Start Date End Date Code Code Syst em Smoking History Never smoker (Never Smoked) 642005627 SNOMED CT Sex Female Hospital Discharge Instructions [...] Diagnosis Start Date Code Code Sys tem Canceled operative procedure 01/30/2022 [id number] SNOMED-CT Personal Care Team Section Performer Name Performer Role Active Date Inactive Da selwyn
--- OUTSIDE RECORDS SUMMARY | 2024-07-29 18:24 | XMS_ITS ---
Author Organization Unknown Address [address] [place] [phone] Phone Care Team Providers Care Purchaser Automotive Parts Name Role Phone ROOMET BUNNY Attending Unavailable LISA Belle Primary Unavailable Social History Type Status Start Date End Date Code Code Syst em Smoking History Never smoker (Never Smoked) 410190686 SNOMED CT Sex Female Hospital Discharge Instructions [...] Diagnosis Start Date Code Code Sys tem Anesthesia of skin 01/30/2022 SNOMED-CT Personal Care Team Section Performer Name Performer Role Active Date Inactive Da te
--- OUTSIDE RECORDS SUMMARY | 2024-07-29 18:24 | XMS_ITS | Encounter Summary ---
Author Organization [facility] Address [address] [place] [address] Care Team Providers Care Harness Builder Name Role Phone Unavailable Primary Care Provider Unavailabl e Encounter Details Date Type Department Care Team (Late st Contact Info) Description 12/03/2018 Results Only [facility] [phone] Miriam Duarte MD [address] [phone] Social History Tobacco Use Types Packs/Day Years [...] Info) Description 08/10/2024 13:30 EST Office Visit [facility] [address] [place] [address] Melanie Chamberlain MD [address] [facility] 1 [place] [address] documented as of this encounter Procedures Procedure Name Priority Date/Time Associated Diagnosis Comments PAP TEST- RESULT ONLY Routine 12/03/2018 0:00 EST documented in this encounter Results * PAP TEST- RESULT ONLY (12/03/2018 0:00 EST) Pathology Report: CYTOPATHOLOGY REPORT Reports generated via electronic interface contain original data; however they are lacking the format of the original report. Caution should be taken when reading/interpreti ng unformatted reports. Name: ? KEYLA LESTER ? Accession #: ? [id number] ? : ? 1970 (Age: 48) ??F ?Collect Date: ? 12/03/2018 ? Location: ? [facility] ? Receive Date: ? 12/05/2018 ? Provider: MIRIAM DUARTE MD Copy to: ? Final Report SPECIMEN ADEQUACY ? Satisfactory for Evaluation - transformation zone component present - scant squamous epithelial component secondary to excessive inflammation GENERAL CATEGORIZATION ? Negative for Intraepithelial Lesion or Malignancy ?? Last Menstrual Period: 5 months ago Previous Gynecologic Pathology: Yes: cervical dysplasia by appearance w/ family h/o cervical cancer Other: Friable Cervix Additional clinical information: Z00.00 Z12.4 Additional clinical information: abnormal induration, very vascular w/ irreg. vascularity Specimen/Source: ??Pap Test, Cervix/Endocervix, ThinPrep Imaging System with manual evaluation Document reviewed and electronically signed by: ? Becca Pathak, CT(ASCP) ? Report ??Date: 12/08/2018 10:17 HPV with Pap Test ? Date Ordered: ? 12/08/2018 ? Status: ?? Signed Out ?Date Complete: ? 12/09/2018 ? By: ??System Interface ? Date Reported: ? 12/09/2018 ? Interpretation RESULT: Negative for HPV. No E6 or E7 mRNA is detected from HPV types 16,18,31,33,35, 39,45,51,52,56,58, 59,66, and 68 by drier attendant mediated amplification. Comments Document reviewed and electronically signed by: ? System Interface ? Report date: 12/09/2018 By the signature above, the attending physician certifies that he/she has personally conducted a gross and/or microscopic examination of the described specimens and rendered or confirmed the above diagnosis. End of Report [facility] 12/03/2018 12/05/2018 Miriam Duarte MD PATHOLOGY ORDERABLES [facility] [address] [place] [address] documented in this encounter Visit Diagnoses Not on filedocumented in this encounter
--- OUTSIDE RECORDS SUMMARY | 2024-07-29 18:24 | XMS_ITS | Encounter Summary ---
[place] [address] Care Team Providers Care Center Sales And Service Associate Name Role Phone Antonieta Parson APRN Primary Care Provider Reason for Visit * Reason Onset Date Comments Reminder Appointment 03/31/2020 Encounter Details Date Type Department Care Team (Late st Contact Info) Description 03/31/2020 Telephone Gastroenterology at [facility] [place] [address] Lisa Navas CMA GASTROENTEROLOGY DEPT Reminder Appointment Social History Tobacco Use Types Packs/Day Years Used Date Smoking Tobacco: Never Assessed Sex and Gender Information Value Date Recorded Sex Assigned at Not on file Gender Identity Not on file Sexual Orientation Not on file documented as of this encounter Miscellaneous Notes * Telephone Encounter - Lisa Navas CMA - 03/31/2020 10:24 AM EDT Called patient to review medications and allergies for their upcoming gastroenterology Type of Appointment: Telehealth appointment. Reach Patient during MA Check: Yes Notes for the provider: Notes for the nurse: documented in this encounter Plan of Treatment Not on file documented as of this encounter Visit Diagnoses Not on filedocumented in this encounter Care Teams Center Sales And Service Associate Relationship Specialty Start Date End Date Antonieta Parson APRN PCP - General Family Medicine 03/08/20 documented as of this encounter
--- OUTSIDE RECORDS SUMMARY | 2024-07-29 18:24 | XMS_ITS | Encounter Summary ---
Author Organization [facility] Address [address] [place] [address] Care Team Providers Care Orchardist Name Role Phone Unavailable Primary Care Provider Unavailabl e Reason for Visit * Reason Comments Coronary Artery Disease Follow up Encounter Details Date Type Department Care Team (Late st Contact Info) Description 02/10/2020 14:45 EDT Telemedicine [facility] [address] [place] [address] Yesika Yoon MD [address] [place] [phone] Spontaneous dissection of coronary artery (Primary Dx) Social History Tobacco Use Types [...] as of this encounter Progress Notes * Yesika Yoon MD - 02/10/2020 7242 EDT [facility] [place] Today's visit was provided through telemedicine video conferencing: The location of the patient: Home The location of the provider: Home office Verbal consent: The concept of ???Telemedicine?? has been described to the patient.Patient has been informed of the anticipated benefits and possible risks. Patient understands the information provided regarding telemedicine, has had the opportunity to ask questions about this information, and all questions have been answered to patient???s satisfaction. Patient consents for the use of telemedicine in his/her medical care and authorizes the transmission of any relevant medical information to providers and their staff involved in patient???s medical or mental health care. Verbal consent obtained by myself or auxiliary staff: yes. 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 2 drug-eluting stents placed to LAD. Persistent distal 100% occlusion. Feeling well. No exertional symptoms. No leg swelling or PND. Remains relatively active. Hard givencurrent lock down. Realizes she needs to optimize weight. ? I have reviewed patient's tobacco history: reports that she has never smoked. She has never used smokeless tobacco. I have reviewed current problem list and current medications. Systems review A 10 point review of systems was performed and pertinent negatives and positives are mentioned above. Objective: Examination: Home Vitals: There were no vitals taken for this visit. Pertinent exam findings: none Data reviewed with patient: LABS Lab Results Component Value Date WBC 10.03 07/30/2016 HGB 12.0 07/30/2016 HCT 36.6 07/30/2016 MCV 80 (L) 07/30/2016 PLT 283 07/30/2016 Lab Results Component Value Date CREATININE 0.70 07/30/2016 Lab Results Component Value Date NA 139 07/30/2016 K 4.4 07/30/2016 CL 107 07/30/2016 CO2 19 (L) 07/30/2016 Lab Results Component Value Date HGBA1C 5.4 07/28/2016 Lab Results Component Value Date CHOL 181 07/28/2016 HDL 40 07/28/2016 LDLBASE 105 07/28/2016 TRIG 179 07/28/2016 CHOLHDL 4.5 07/28/2016 Prior Echo 2016 Summary: ?? 1. Left ventricle: The cavity size was normal. Wall thickness was normal. Systolic function was normal. The estimated ejection fraction was 55-60%. There was hypokinesis of the apicalanteroseptal and apical myocardium. Diastolic parameters were normal. 2. Right ventricle: The cavity size was normal. Systolic function was normal. Prior Left Heart Cath 2016 The coronary circulation is right dominant. ?? Left main: Normal. LAD: Minor luminal irregularities. Distal vessel lesion: There is a discrete, 22mm (L)dissection. This lesion is ulcerated. There is a filling defect consistent with thrombus. There is ES grade 0 flow (no flow) across the lesion. The lesion was stented (see 1st lesion intervention), with balloon angioplasty. Following intervention, the lesion has a residual stenosis of 0%, and improved angiographic appearance and return of flow to a segment of the distal LAD. The distal apical portion of the distal LAD remains occluded. There were no site complications. Distal vessel lesion: There is a 100% stenosis. Left circumflex: Minor luminal irregularities. Right coronary: Minor luminal irregularities. Assessment & Plan: 1. Spontaneous dissection of coronary artery ACS back in 2016. Spontaneous coronary dissection of her LAD. Had LAD stents placed. Currently asymptomatic. No exertional chest discomfort. CCS class I. Cardiac echo back then with preserved LV systolic function. Suggest she reduce her aspirin to 81 mg daily. Continue low-dose beta-luciana for now. Encouraged her to increase activity levels and to optimize weight. The following individuals and their role did participate in today's encounter visit: Provider: Yesika Yoon MD Patient Yesika Yoon MD * Margarito Gonzalez - 02/10/2020 1445 EDT Lm for pt to call back to sched Fu appt for CAD 1 yr fu w/CURT * Romana Rajput - 02/10/2020 1445 EDT 02/16 lmtcb to schedule a yearly appt with DATAWAREHOUSE DEVELOPER * Romana Rajput - 02/10/2020 1445 EDT 02/23 Placed pt in recall at this time documented in this encounter Plan of Treatment Upcoming Encounters Date Type Department Care Team (Late st Contact Info) Description 08/10/2024 13:30 EST Office Visit [facility] [address] [place] [address] Melanie Chamberlain MD [address] [place] [address], Level [address] [place] [address] documented as of this encounter Visit Diagnoses Diagnosis Spontaneous dissection of coronary artery- Primary documented in this encounter Discontinued Medications Medication Sig Discontinue Reason Start Date End Da te clopidogrel (PLAVIX) 75 mg tablet Take 1 Tab by mouth daily. Therapy completed 07/30/2016 02/10/2020 atorvastatin (LIPITOR) 20 mg tablet Take 1 Tab by mouth daily. Therapy completed 07/30/2016 02/10/2020 documented as of this encounter
--- OUTSIDE RECORDS SUMMARY | 2024-07-29 18:24 | XMS_ITS | Encounter Summary ---
Author Organization [facility] Address [address] [place] [address] Care Team Providers Care Vc++ Developer Name Role Phone Unavailable Primary Care Provider Unavailabl e Encounter Details Date Type Department Care Team (Late st Contact Info) Description 07/30/2016 Results Only Imaging [facility] [phone] Unknown, Provider, Social History Tobacco Use Types Packs/Day Years [...] Info) Description 08/10/2024 13:30 EST Office Visit [facility] [address] [place] [address] Melanie Chamberlain MD [address] [place] [address] 1 [place] [address] Pending Results Name Type Priority Associated Diagnoses Date /Time OUTSIDE IMAGES - OTHER CHEST Imaging 07/30/2016 6:36 EDT OUTSIDE IMAGES - CT CHEST Imaging 07/30/2016 8:32 EDT documented as of this encounter Visit Diagnoses Not on filedocumented in this encounter
--- OUTSIDE RECORDS SUMMARY | 2024-07-29 18:24 | XMS_ITS | Encounter Summary ---
Author Organization [facility] Address [address] [place] [address] Care Team Providers Care Domestic Violence Counselor Name Role Phone Antonieta Parson PHOTOVOLTAIC POWER SYSTEMS ENGINEER Primary Care Provider Suze Cain PHOTOVOLTAIC POWER SYSTEMS ENGINEER Unavailable [phone] Melanie Chamberlain MD Unavailable [phone] Reason for Visit * Reason Comments Follow-up Encounter Details Date Type Department Care Team (Late st Contact Info) Description 08/16/2023 15:30 EST Office Visit [facility] [address] [place], [place] [id number] Melanie Chamberlain MD 111 [facility] 1 [place] [address] Spontaneous dissection of coronary artery (Primary Dx) [...] Sign Reading Time Taken Comments Blood Pressure 112/64 08/16/2023 1510 EST Pulse 91 08/16/2023 1510 EST Temperature - - Respiratory Rate - - Oxygen Saturation 98% 08/16/2023 1510 EST Inhaled Oxygen Concentration - - Weight 98 kg (216 lb) 08/16/2023 1510 EST Height 167.6 cm (5' 6) 08/16/2023 1510 EST Body Mass Index 34.86 08/16/2023 1510 EST documented in this encounter Functional Status [...] Progress Notes * Melanie Chamberlain MD - 08/16/2023 1530 EST [facility] Cardiology Office Visit Subjective: Chief Complaint(s): Follow-up HPI: 53 year old female with history of SCAD (2015) s/p two SIENNA to LAD with persitent distal 100% occlusion who presents for yearly follow-up. Since our last visit, one year ago she has been doing well. No cardiac symptoms. Has lost weight. No other cardiac history besides the dissection. Screed for fibromuscular dysplasia in 10/21 with no evidence. Outpatient Medications Marked as Taking for the 08/16/23 encounter (Office Visit) with Melanie Chabmerlain MD Medication Sig ??? aspirin 325 mg tablet 1 tab(s) orally once a day ??? busPIRone (BUSPAR) 15 mg tablet TAKE 1 TABLET BY MOUTH TWICE DAILY. TOTAL DAILY DOSE 30 MG ??? citalopram (CELEXA) 40 mg tablet Take 1 Tablet by mouth daily. ??? levalbuterol (XOPENEX HFA) 45 mcg/actuation inhaler Inhale 1 Puff as directed every 6 hours as needed. ??? liraglutide (VICTOZA 2-CATERINA) 0.6 mg/0.1 mL (18 mg/3 mL) injectable pen Inject 1.2 mg into the skin daily. ??? loratadine (CLARITIN) 10 mg tablet Take 1 Tablet by mouth daily. ??? metoprolol SUCCinate (TOPROL-XL) 25 mg tablet TAKE 1 TABLET BY MOUTH EVERY DAY ??? nitroglycerin (NITROSTAT) 0.4 mg SL tablet [...] and are negative. Objective: Examination: Vitals: BP 112/64 (BP Cuff Location: Right arm, BP Patient Position: Sitting, BP Cuff Sizes: Adult, large) Pulse 91 Ht 167.6 cm (66) Wt 98 kg (216 lb) SpO2 98% BMI 34.86 kg/m?? Body mass index is 34.86 kg/m??. Physical Exam Constitutional: Appearance: Normal appearance. Cardiovascular: Rate and Rhythm: Normal rate. Heart sounds: No murmur heard. Neurological: Mental Status: She is alert. Labs: [...] results found for: NTBNP Assessment & Plan: 53 year old female with history of SCAD [...] Info) Description 08/10/2024 13:30 EST Office Visit [facility] [address] [place] [address] Melanie Chamberlain MD [address] [place] [address], [facility] [address] [place] [address] documented as of this encounter Visit Diagnoses Diagnosis Spontaneous dissection of coronary artery- Primary documented in this encounter Historical Medications * This list may reflect changes made after this encounter. Medication Sig Dispensed Refills Start Date End Date liraglutide (VICTOZA 2-CATERINA) 0.6 mg/0.1 mL (18 mg/3 mL) injectable pen Inject 1.2 mg into the skin daily. added in this encounter Care Teams Domestic Violence Counselor Relationship Specialty Start Date End Date Antonieta Parson FNP PCP - General 09/04/21 Suze Cain FNP [address] [place] [address] Family Medicine - Primary Care 09/04/21 Melanie Chamberlain MD [address] [place] [phone] Consulting Clinician Cardiovascular Disease 08/22/22 documented as of this encounter
--- OUTSIDE RECORDS SUMMARY | 2024-07-29 18:24 | XMS_ITS | Referral Summary ---
Author Organization [facility] Address [address] [place] [address] Care Team Providers Care Fish Worm Grower Name Role Phone Antonieta Parson BUNG SEWER Primary Care Provider [phone] Suze aCin BUNG SEWER Unavailable Melanie Chamberlain MD Unavailable [phone] Allergies Active Allergy Reactions Criticality Noted Date Comments Sulfamethoxazole-Trimethoprim Rash,Fever 2015 Other - See Comments Other (See Comments) 12/30 Medications Medication Sig Dispensed Refills Start Date End Date Status levalbuterol (XOPENEX HFA) 45 mcg/actuation inhaler Inhale 1 Puff as directed every 6 hours as needed. Active aspirin 325 mg tablet 1 tab(s) orally once a day 08/21/2017 Active nitroglycerin (NITROSTAT) 0.4 mg SL tablet 1 tab(s) sublingually every 5 minutes, as needed Active citalopram (CELEXA) 40 mg tablet Take 1 Tablet by mouth daily. 08/01/2021 Active busPIRone (BUSPAR) 15 mg tablet TAKE 1 TABLET BY MOUTH TWICE DAILY. TOTAL DAILY DOSE 30 MG 07/31/2021 Active loratadine (CLARITIN) 10 mg tablet Take 1 Tablet by mouth daily. 08/09/2021 Active metoprolol SUCCinate (TOPROL-XL) 25 mg tabletIndications: Coronary artery dissection TAKE 1 TABLET BY MOUTH EVERY DAY 90 Tablet 5 10/29/2022 Active liraglutide (VICTOZA 2-CATERINA) 0.6 mg/0.1 mL (18 mg/3 mL) injectable pen Inject 1.2 mg into the skin daily. Active Active Problems Problem Noted Date Diagnosed Date Coronary atherosclerosis 02/08/2020 Spontaneous dissection of coronary artery 2019 NSTEMI (non-ST elevated myocardial infarction) ( [facility]) 07/28/2016 Social History Tobacco Use Types Packs/Day Years [...] 14:12 EDT Sexual Orientation Not on file Last Filed Vital Signs Vital Sign Reading Time Taken Comments Blood Pressure 112/64 08/16/2023 1510 EST Pulse 91 08/16/2023 1510 EST Temperature 36.9 ??C (98.4 ??F) 07/30/2016 0903 EDT Respiratory Rate 16 07/30/2016 0903 EDT Oxygen Saturation 98% 08/16/2023 1510 EST Inhaled Oxygen Concentration - - Weight 98 kg (216 lb) 08/16/2023 1510 EST Height 167.6 cm (5' 6) 08/16/2023 1510 EST Body Mass Index 34.86 08/16/2023 1510 EST Functional Status Functional Status Response Date of [...] (5 years old or older) No 07/28/2016 Plan of Treatment Upcoming Encounters Date Type Department Care Team (Late st Contact Info) Description 08/10/2024 13:30 EST Office Visit [facility] [address] [place] [address] Melanie Chamberlain MD [address] [place] [address], [facility] 1 [place] [phone] Advance Directives For more information, please contact: [phone] * Full Code (Latest Code Status on File) Date Activated Date Inactivated Comments 07/28/2016 22:24 07/30/2016 16:01 Question Answer Comments Reason for decision includes: Full code consistent with overall plan of care Who participated in the discussion? Patient Care Teams Fish Worm Grower Relationship Specialty Start Date End Date Antonieta Parson FNP PCP - General 09/04/21 Suze Cain FNP [address] [place] [phone] Family Medicine - Primary Care 09/04/21 Melanie Chamberlain MD [address] [place] [address] [address] [place] [address] Consulting Clinician Cardiovascular Disease 08/22/22
--- OUTSIDE RECORDS SUMMARY | 2024-07-29 18:24 | XMS_ITS | Encounter Summary ---
Author Organization [facility] Address [address] [place] [address] Care Team Providers Care Turner And Former Automatic Name Role Phone Unavailable Primary Care Provider Unavailabl e Encounter Details Date Type Department Care Team ([facility] st Contact Info) Description 01/14/2018 Results Only [facility] [phone] Carina Graves MD [address] [facility] 6 [place] [address] Social History Tobacco Use Types Packs/Day Years [...] Info) Description 08/10/2024 13:30 EST Office Visit [facility] [address] [place] [address] Melanie Chamberlain MD 111 [facility] 1 [place] [address] documented as of this encounter Procedures Procedure Name Priority Date/Time Associated Diagnosis Comments SURGICAL PATHOLOGY Routine 01/14/2018 16 :17 EDT documented in this encounter Results * SURGICAL PATHOLOGY (01/14/2018 16:17 EDT) Pathology Report: SURGICAL PATHOLOGY REPORT Reports generated via electronic interface contain original data; however they are lacking the format of the original report. Caution should be taken when reading/interpret ing unformatted reports. Name: ? KEYLA LESTER ? Accession #: ? [id number] ? : ? 1970 (Age: 47) ??F ? Collect Date: ? 01/14/2018 ? Location: ? [facility] ? Receive Date: ? 01/15/2018 ? Provider: CARINA GRAVES MD Copy to: ? Final Pathologic Diagnosis: A. ??SKIN OF NECK, RIGHT LOWER, EXCISION: - Seborrheic keratosis, pedunculated. ?? B. ??SKIN OF NECK, RIGHT UPPER, EXCISION: - Seborrheic keratosis. C. ??SKIN OF BACK, RIGHT UPPER, EXCISION: - Seborrheic keratosis. D. ??SKIN OF BACK, RIGHT, EXCISION: - Seborrheic keratosis. ?? Microscopic Description: The stratum corneum is thickened by compact and basketweave orthokeratosis with formation of horn pseudocysts. ??The epidermis is acanthotic with formation of broad and anastomosing trabeculae. ??The trabeculae are composed of basaloid keratinocytes with round uniform nuclei. ??The keratinocytes have a variable amount of melanin pigment. ??(Dr. Flores)/ljn Document reviewed and electronically signed by: ADAM FLORES MD Report ??Date: 01/16/2018 16:29 By the signature above, the attending physician certifies that he/she has personally conducted a gross and/or microscopic examination of the described specimens and rendered or confirmed the above diagnosis. Specimen(s) Received: A. ??R lower neck skin tag excision B. ??R upper neck mallory keratosis excision C. ??R back D. ??R back Clinical History: R back x2 mallory keratosis, all with curette Gross Description: A. ?Received in formalin labelled with proper patient identification (initials R, C) and #1 Rt neck lower is a single dupree-jimenez polypoid portion of skin (0.9 x 0.6 x 0.3 cm). The margin is inked blue. The specimen is bisected and entirely submitted in A1. B. ?Received in formalin labelled with proper patient identification (initials R, C) and #2 Rt upper neck is a 0.8 x 0.4 x 0.2 cm irregular fragment of dupree-jimenez skin. The margin is inked blue. The specimen is bisected and entirely submitted in B1. C. ?Received in formalin labelled with proper patient identification (initials R, C) and #3 Rt back upper is a 0.5 x 0.4 x 0.1 cm circular shave biopsy of granular george-white skin. The margin is inked blue. The specimen is submitted in toto in C1. D. ?Received in formalin labelled with proper patient identification (initials R, C) and #4 Rt back is a 1.2 x 0.6 x 0.2 cm ovoid shave biopsy of granular friable jimenez skin. The margin is inked blue. The specimen is bisected and entirely submitted in D1. JUAN Smith (ASCP) 01/15/2018 4:32 PM End of Report [facility] 01/14/2018 16:1 7 EDT 01/15/2018 16:17 EDT Carina Graves MD PATHOLOGY ORDERABLES [facility] [address] [place] [address] documented in this encounter Visit Diagnoses Not on filedocumented in this encounter
--- OUTSIDE RECORDS SUMMARY | 2024-07-29 18:24 | XMS_ITS | Encounter Summary ---
Author Organization [facility] Address [address] [place] [address] Care Team Providers Care Weed Eradicator Name Role Phone ElijahalidaAntonieta shah CARTON STAPLER Primary Care Provider [phone] Suze Cain CARTON STAPLER Unavailable [phone] Melanie Chamberlain MD Unavailable [phone] Encounter Details Date Type Department Care Team (Late st Contact Info) Description 06/17/2021 Lab Requisition [facility] Pathology & Laboratory Medicine - [facility] [address], [place] [address] Outr Resulting Lab, Provider Social History Tobacco [...] No 07/28/2016 Cognitive Status Response Date of Assess ent Because of a physical, menta l, or emotional condition, do you have serious difficulty concentrating, remembering, or making decisions? (5 years old or older) No 07/28/2016 documented as of this encounter Plan of Treatment Upcoming Encounters Date Type Department Care Team (Late st Contact Info) Description 08/10/2024 13:30 EST Office Visit [facility] [address] [place] [address] Melanie Chamberlain MD [address] [facility] [address] [place] [address] documented as of this encounter Procedures Procedure Name Priority Date/Time Associated Diagnosis Comments ZZCOVID-19 TEST [facility] PCR Today 06/16/2021 13:00 EDT COVID-19 TESTING Routine 06/16/2021 13:0 0 EDT documented in this encounter Results * COVID-19 TEST [facility] PCR (06/16/2021 13:00 EDT) Swab ENTIRE NASOPHARYNX / Unknown 06/16/2021 13:00 EDT 06/17/2021 21:45 EDT Provider Outr Resulting Lab MICROBIOLOGY - GENERAL ORDERABLES [facility] [address] [place] [address] * COVID-19 TESTING (06/16/2021 13:00 EDT) COVID-19 rt-PCR Result Negative Negative 06/18/2021 16:24 EDT [facility] Comment: This test has not been FDA cleared or approved. This test has been authorized by FDA under an EUA for use by authorized laboratories. This test has been authorized only for detection of nucleic acid from 2018-, not for any other viruses or pathogens. [...] history, and epidemiological information. Performed on the [employer] Fusion instrument Performing Lab [place] [facility] 06/18/2021 16:24 EDT [facility] Swab 06/16/2021 13:0 0 EDT 06/17/2021 21:45 EDT Provider Outr Resulting Lab MICROBIOLOGY - GENERAL ORDERABLES [facility] [address] [place] [address] documented in this encounter Visit Diagnoses Not on filedocumented in this encounter Care Teams Weed Eradicator Relationship Specialty Start Date End Date Antonieta Parson FNP PCP - General 09/04/21 Suze Cain FNP [address] [place] [address] Family Medicine - Primary Care 09/04/21 Melanie Chamberlain MD [address] [place], [place] [address] [address] [place] [address] Consulting Clinician Cardiovascular Disease 08/22/22 documented as of this encounter
--- OUTSIDE RECORDS SUMMARY | 2024-07-29 18:24 | XMS_ITS | Encounter Summary ---
Author Organization [facility] Address [address] [place] [address] Care Team Providers Care Plastic Surgery Technician Name Role Phone Unavailable Primary Care Provider Unavailabl e Reason for Visit * Reason Onset Date Comments Appointment Related 08/09/2016 PO Referral Request 08/09/2016 to book sorter in [facility] Appointment Related 08/10/2016 10/08/16 Encounter Details Date Type Department Care Team ([facility] Contact Info) Description 08/09/2016 Telephone [facility] Cardiology - [address] [place] [address] Carter Rosas MD Appointment Related ([facility] Referral Request (to book sorter in [facility]); Appointment Related (10/08/16) Social History Tobacco Use Types Packs/Day Years [...] encounter Miscellaneous Notes * Telephone Encounter - Jarek Echevarria - 08/10/2016 1514 EST Spoke with patients and they accepted appointment at [facility] with Dr. Momin on 08/22 at 4:30. HIM has faxed over records for this patient. * Telephone Encounter - Kaitlin Lopez, RN - 08/10/2016 1219 EST Spoke with pt's - she does not think her medical diagnosis is being seen as serious. Could not get apt at [facility] for 2 months and now does not want to go to that facility. Requesting new referral be sent to [facility], Dr. Julio Rosa. Offered to call Dr. Rosas and see if I can move up apt, but declined Jarek, operations scheduler, called [facility] and they are booking out to September as well. Will check with CV * Telephone Encounter - Tasneem Quezada - 08/10/2016 1025 EST Reason for Call: Appointment Related ([facility]); Referral Request (to book sorter in [facility]); and Appointment Related (10/08/16) Summary/Symptoms: Patient's calling concerned and frustrated that his 's POH appointment is not until 10/08/16. He feels that the hospital is incompetent since we cannot get her in sooner. would like a call back today to further discuss. Tasneem Quezada 08/10/2016 10:25 * Telephone Encounter - Anais Harris - 08/09/2016 1554 EST Per pt she doesn't want to see Dr. Rosas at [facility]. She is upset that she needs to wait until October [address] Rosas at [facility]- creative writer advised that Dr. Rosas has limited availability at the [facility] facility thus the reason for her visit in September. Pt stated that she wanted a referral to see tiara in [facility], creative writer advised that if she wanted a referral to [facility] we would have to request this from the provider who placed the referral for Dr. Rosas. Patient became frustrated and stated I don't know what I am going to do then, I will call back she disconnected call before creative writer could re confirm referral to [facility]. Internet Ecommerce Specialist also offered to scheduled the visit with pss staff at the [facility] location- patient refused this as well. documented in this encounter Plan of Treatment Upcoming Encounters Date Type Department Care Team (Late st Contact Info) Description 08/10/2024 13:30 EST Office Visit [facility] Cardiology Clinic [address] [place] [address] Melanie Chamberlain MD [address] [place] [address], [place], [address] [place] [address] documented as of this encounter Visit Diagnoses Not on filedocumented in this encounter
--- OUTSIDE RECORDS SUMMARY | 2024-07-29 18:24 | XMS_ITS | Clinical Summary ---
Author Organization [facility] Address [address] [place] [address] Care Team Providers Care Welder Railcar Mechanic Name Role Phone Antonieta Parson HOSPITAL LIBRARIAN Primary Care Provider [phone] Suze Cain HOSPITAL LIBRARIAN Unavailable [phone] Melanie Chamberlain MD Unavailable [phone] Allergies Active Allergy Reactions Criticality Noted Date [...] 2019 NSTEMI (non-ST elevated myocardial infarction) ( [facility]) 07/28/2016 Surgical History Surgery Date Site/Laterality Comments CHOLECYSTECTOMY approx 2010 TUBAL LIGATION Medical History Medical History Date Comments CAD (coronary artery disease) Family History Medical History Relation Comments Hypertension Father Hypertension Mother Relation Status Comments Father Mother Alive Social History Tobacco Use Types Packs/Day Years [...] 14:12 EDT Sexual Orientation Not on file Obstetrics History Last Filed Vital Signs Vital Sign Reading [...] Body Mass Index 34.86 08/16/2023 1510 EST Plan of Treatment Upcoming Encounters Date Type Department Care Team (Late st Contact Info) Description 08/10/2024 13:30 EST Office Visit [facility] Cardiology Clinic [address] [place] [address] Melanie Chamberlain MD [address] [place] [address], [place], [facility] [address] [place] [address] Health Maintenance Due Date Last Done Comments Hepatitis C Screen 1970 Hepatitis B Vaccine (1 of 3 - 19+ 3-dose series) 03/15 COVID-19 Vaccine ( season) 2024 Advance Directives For more information, please contact: [phone] * Full Code (Latest Code Status on File) Date Activated Date Inactivated Comments 07/28/2016 22:24 07/30/2016 16:01 Question Answer Comments Reason for decision includes: Full code consistent with overall plan of care Who participated in the discussion? Patient Care Teams Welder Railcar Mechanic Relationship Specialty Start Date End Date Antonieta Parson FNP PCP - General 09/04/21 Suze Cain FNP [address] [place] [address] Family Medicine - Primary Care 09/04/21 Melanie Chamberlain MD [address] [place] [address] Consulting Clinician Cardiovascular Disease 08/22/22
--- OUTSIDE RECORDS SUMMARY | 2024-07-29 18:25 | XMS_ITS | Encounter Summary ---
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 Name Role Phone Unknown, Provider Primary Care Provider [phone] Reason for Referral * Follow Up (Routine/Next Available) - Closed Specialty Diagnoses / Procedures Referred By Brynn t Referred To Contact Cardiology Diagnoses NSTEMI (non-ST elevated myocardial infarction) ([facility]) Jose De Jesus Parekh PA-C [address] [place] [phone] Carter Rosas MD Referral ID Status Reason Start Date Expiration Date V isits Requested Visits Authorized Closed Specialty Services Required 07/30/2016 1 1 Question Answer Reason for Request: cad Expected Discharge Date (Inpatient Only): 07/31/2016 * Consult (Routine) - Closed Specialty Diagnoses / Procedures Referred By Contac t Referred To Contact Diagnoses NSTEMI (non-ST elevated myocardial infarction) ([facility]) Jose De Jesus Parekh PA-C [address] [place] [phone] Referral ID Status Reason Start Date Expiration Date V isits Requested Visits Authorized Closed Specialty Services Required 07/30/2016 1 1 Question Answer Reason for Request: cad Expected Discharge Date (Inpatient Only): 07/30/2016 SITE [facility] * Follow Up (Routine) - Closed Specialty Diagnoses / Procedures Referred By Contac t Referred To Contact Diagnoses NSTEMI (non-ST elevated myocardial infarction) ([facility]) Jose De Jesus Parekh PA-C [address] [phone] Referral ID Status Reason Start Date Expiration Date V isits Requested Visits Authorized [id number] Closed Continuity of Care 07/30/2016 1 1 Question Answer Reason for Request: cad Expected Discharge Date (Inpatient Only): 07/31/2016 Encounter Details Date Type Department Care Team (Late st Contact Info) Description 07/28/2016 22:24 EDT - 07/30/2016 13:51 EDT Hospital Encounter [facility]Tele[facility] [address], [place] [id number] Micah Garvin MD [address] [place] [phone] Carmina Noble MD [address] [phone] NSTEMI (non-ST elevated myocardial infarction) ([facility]) (Primary Dx) Discharge Disposition: Home or Self Care Social [...] Sign Reading Time Taken Comments Blood Pressure 112/57 07/30/2016 0903 EDT Pulse 93 07/30/2016 0913 EDT Temperature 36.9 ??C (98.4 ??F) 07/30/2016 0903 EDT Respiratory Rate 16 07/30/2016 0903 EDT Oxygen Saturation 98% 07/30/2016 09 EDT Inhaled Oxygen Concentration - - Weight 99.8 kg (220 lb) 07/28/20162231 EDT Height 167.6 cm (5' 6) 07/28/20162231 EDT Body Mass Index 35.51 07/28/20162231 EDT documented in this encounter Functional Status Functional [...] No 07/28/2016 documented as of this encounter Discharge Diagnoses Diagnosis I21.19 ST elevation (STEMI) myocardial infarction involving other coronary artery of inferior wall-I21.19[ICD-10-CM] E66.9 Obesity, unspecified-E66.9[ICD-10-CM] I25.118 Atherosclerotic heart disease of [place] coronary artery with other forms of angina pectoris-I25.118[ICD-10-CM] Z68.35 Body mass index (BMI) 35.0-35.9, adult-Z68.35[ICD-10-CM] documented in this encounter Discharge Summaries * Cheryl Bustos MD - 07/30/2016 1351 EDT Cardiology Discharge Summary Primary Care Provider: Aaron Currie Attending Physician: Paco Jaime MD Admit Date: 07/28/2016 Discharge Date: 07/30/2016 Disposition: Home or self care Problems and Procedures Admitting Diagnosis: NSTEMI (non-ST elevated myocardial infarction) Final Hospital Diagnosis: NSTEMI Additional Problems Managed in the Hospital Active Hospital Problems Diagnosis Date Noted ??? NSTEMI (non-ST elevated myocardial infarction) 07/28/2016 Resolved Hospital Problems Diagnosis Date Noted Date Resolved No resolved problems to display. Principal Procedure: Left heart catheterization Date: 07/29/2016 Diagnostic Cardiac Study Results Left main: normal Left anterior descending: Minimal irregs, 100% distal with evidence of dissection Leftcircumflex: Minimal irregs Right coronary artery: Minimal irregs Grafts: n/a Interventional Procedure: Using standard technique, the distal LAD 100% to 0% at lesion, SIENNA X1, 2.25 X 28, HP prox stent 2.5, flow reestablished into apical LAD and septals with residual cutoff at small distal end of LAD, a 1 mm vessel. Secondary Procedures: - Echocardiogram: Summary: 1. Left ventricle: The cavity size was normal. Wall thickness was ? normal. Systolic function was normal. The estimated ejection fraction ? was 55-60%. There was hypokinesis of the apicalanteroseptal and ? apical myocardium. Diastolic parameters were normal. 2. Right ventricle: The cavity size was normal. Systolic function was ? normal. Hospital Course Keyla Mora is an active 46 y.o.female with no significant PMHx who presented with chest pain at [facility]. There, labs notable for trop 0.48, EKG showed ST elevations in leads II and V2-V3. CT PE protocol was negative, per report. Loaded with plavix 300 mg, ASA 324, and started on heparin gtt and transferred to [facility] for further care. ?? She was hemodynamically stable on arrival, labs notable for trop of 14.8. EKG showed NSR and resolution of ST elevations. Overnight developed refractory chest pain and went for left heart cath on themorning of 07/29 with results shown above. She underwent SIENNA to the LAD and was noted to have spontaneous LAD dissection. ?? Echocardiogram revealed LVEF of 55-60% with hypokinesis of the apicalanteroseptal and apical myocardium.Given her age and lack of known cardiac risk factors with a spontaneous LAD dissection fibromuscular dysplasia was discussed as a possible underlying etiology, but given no other signs/sxs it was felt that further workup for this would be low yield during this hospital stay. This workup may be indicated on an outpatient basis if further concern for this arises in her overall clinical picture.She remained hemodynamically stable during her hospital course and had no complaints of chest pain,SOB, palpitations, dizziness, or other systemic complaints at discharge. Allergies and Immunizations Allergies Allergen Reactions ??? Bactrim [Sulfamethoxazole-Trimethoprim] Rash and Fever There is no immunization history on file for this patient. Transition of Care Plans Condition at Discharge Good Assessment at Discharge Vital signs: Patient Vitals for the past 12 hrs: BP Pulse Heart Rate Resp Temp SpO2 O2 Device 07/30/1613 - 93 - - - - - 07/30/16 09 112/57 - 89 BPM 16 36.9 ??C (98.4 ??F) 98 % None 07/30/16 0514 109/45 - 84 BPM 16 37.1 ??C (98.8 ??F) 99 % None Discharge Medications: START taking these medications Sig aspirin 81 mg EC tablet 81 mg, oral, DAILY atorvastatin 20 mg tablet Commonly known as: LIPITOR 20 mg, oral, DAILY clopidogrel 75 mg tablet Commonly known as: PLAVIX 75 mg, oral, DAILY metoprolol XL 25 mg tablet Commonly known as: TOPROL-XL 25 mg, oral, DAILY nitroGLYCERIN 0.4 mg SL tablet Commonly known as: NITROSTAT 0.4 mg, sublingual, Q5 MINUTES PRN Coumadin Management N/A Non-Cardiac Studies at Time of Discharge none Results Pending at Discharge Test results still pending from this admission None Last Lab Results at Discharge BUN: Lab Results Component Value Date BUN 10 07/28/2016 Creatinine: Lab Results Component Value Date CREATININE 0.70 07/30/2016 CBC: Lab Results Component Value Date WBC 10.03 07/30/2016 RBC 4.58 07/30/2016 HGB 12.0 07/30/2016 HCT 36.6 07/30/2016 MCV 80 (L) 07/30/2016 MCH 26.2 (L) 07/30/2016 MCHC 32.8 07/30/2016 PLT 283 07/30/2016 Electrolytes: Lab Results Component Value Date NA 139 07/30/2016 K 4.4 07/30/2016 CL 107 07/30/2016 CO2 19 (L) 07/30/2016 Lab Results Component Value Date HGBA1C 5.4 07/28/2016 Discharge Follow Up Appointments Outside of [facility] We Will Schedule Follow-up appointments and procedures Amb Consult/Follow Up Cardiac Rehabilitation Reason for Request: cad Expected Discharge Date (Inpatient Only): 07/30/2016 Practice Site (External Referral Only): [facility] Authorizing Provider: Jose De Jesus Parekh PA Amb Consult/Follow Up Cardiology Reason for Request: cad Expected Discharge Date (Inpatient Only): 07/31/2016 Authorizing Provider: Jose De Jesus Parekh PA Amb Consult/Follow Up Primary Care Physician Reason for Request: cad Expected Discharge Date (Inpatient Only): 07/31/2016 Authorizing Provider: Jose De Jesus Parekh PA Elizabeth A Wahlberg, MD 07/30/2016 15:07 documented in this encounter Discharge Instructions * Discharge Instr - Other Orders* Ginette Banegas DO - 07/30/2016 13:03 EDT - We have added several medications for you to take at home. These medications include: 1) Atorvastatin (also called Lipitor) - this is a medication that is used to treat high cholesterol. You should take this (20 mg) once a day by mouth 2) Metoprolol (also called Toprol XL) - this is a medication that lowers your heart rate, but is also a good medication for your heart. Take this medication (25 mg) once a day by mouth 3) Aspirin - this is a blood thinning medication that you (were already taking at home) and should continue to take this (81 mg or the 'baby aspirin') once a day by mouth 4) Clopidogrel (also called Plavix) - this is also a blood thinning medication that you should takeby mouth once day (75 mg) for at least the next year 6) Nitroglycerin - This is a medication that you can use if you have an episode of chest pain/pressure. You do not need to use this medication regularly, only if you have chest pain. - Finally, we recommend that you follow-up with your primary care doctor to discuss this hospitalization. Please have blood work drawn before this appointment. This is to monitor your kidney functionand electrolytes. - We have referred you to cardiology as well as cardiac rehabilitation. Someone from the cardiologydepartment will be in touch with you to schedule these appointments. * Attachments The following attachments cannot be sent through Care Everywhere. * CARDIAC REHABILITATION ([facility]EN[facility]FR[facility]) * HEART ATTACK: MYOCARDIAL INFARCTION OR ACUTE CORONARY SYNDROME ([facility]EN[facility]FR[facility]) documented in this encounter Medications at Time of Discharge Medication Sig Dispensed Refills Start Date End Date aspirin 81 mg EC tablet Take 1 [...] 07/30/2016 02/08/2020 documented as of this encounter Ordered Prescriptions Prescription Sig Dispensed Refills Start Date End Da te nitroGLYCERIN (NITROSTAT) 0.[address] 1 Tab under the tongue every 5 minutes as needed for Chest Pain. 30 Tab 1 07/30/2016 02/08/2020 metoprolol XL (TOPROL-XL) 25 mg tablet Take 1 Tab by mouth daily. 30 Tab 1 07/30/2016 02/08/2020 clopidogrel (PLAVIX) 75 mg tablet Take 1 Tab by mouth daily. 30 Tab 11 07/30/2016 02/10/2020 atorvastatin (LIPITOR) 20 mg tablet Take 1 Tab by mouth daily. 30 Tab 1 07/30/2016 02/10/2020 aspirin 81 mg EC tablet Take 1 Tab by mouth daily. 30 Tab 11 07/30/2016 02/08/2020 documented in this encounter Discharge Disposition Disposition Code Departure Means Destination Home or Self Care documented in this encounter Progress Notes * Paco Jaime MD - 07/30/2016 4485 EDT July 30, 2016 Aaron Currie MD [facility] [address] [place] [address] Dear Aaron: I want to bring you up to date on the results of the further cardiac evaluation and coronary stent placement in your patient, Keyla Mora. As you know, this 46-year-old woman has no prior cardiac history and in fact has no significant cardiac risk factors. She presented to [facility] with crescendo angina and was found to have a significant troponin elevation and transferred to our service. Her troponin eventually peaked at 17. Early catheterization revealed that she has minimal underlying coronary disease in the circumflex and right coronary artery, but did have evidence of a stenosis and dissection in the distal LAD just above the apex. In the same setting, I was able to reenter the main vessel and place a single drug-eluting stent in this small caliber vessel restoring flow into the distal LAD, although there remainsa short area in the apical LAD with a residual total occlusion. Reviewing the situation, I believe that this was a rupture of a distal plaque in this vessel that caused the dissection in the distal vessel. I do believe she will benefit from aggressive treatment of underlying mild CAD. Her overall ejection fraction remains preserved with left ventricular ejection fraction of 55% and apical hypokinesis. She has done well afterwards. She is up and walking and free of angina without symptoms of heart failure or any arrhythmia. She was taking no prior prescription medicines and on discharge will be on aspirin residential, Plavix for a minimum of 1 year's time, low-dose Toprol and Lipitor. She plans to follow up in your office as well as establish care with Dr Rosas, cardiology at [facility]. Sheis anxious to attend cardiac rehab and is a good candidate for this. Thank you again for allowing me to participate in the care of your patient. It was pleasure to meets Morgan. Sincerely, Paco Jaime MD 01 53 PM / Paco Jaime MD rn Confirmation: [id number] Dictation ID: [id number] cc:Carter Currie MD * Jose De Jesus Parekh PA - 07/30/2016 1022 EDT Plavix 75mg daily without interruption x 1 year and Aspirin 81 mg daily lifetime reviewed with patient and the patient verbalizes understanding. Cardiac rehab reviewed with patient and the patient iswilling to attend. Referral sent and written material given to patient. Follow up has been requested with Alison Campos. * Koki Ro - 07/30/2016 0943 EDT Initial Case Management/Social Work Assessment and Discharge Plan/Readmission Risk Assessment REASON FOR ADMISSION: STEMI Patient understands reason for admission: Yes PATIENT CONTACT INFO VERIFIED: Yes (Spouse An Mora [phone]) LIVING ARRANGEMENTS AND ACCESSIBILITY ISSUES: Living Arrangements: Spouse / significant other Levels: 1 Stairs to enter: 2 Handicap access: None Bathroom located on bedroom level?: Yes Home Care Services: No Type of Home Care Services: None What in home social supports are available to the patient? Spouse / significant other. Patient lives with her and one adult child. She has two other children who live in the area. She has siblings in the area as well who are supportive. 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 She is independent in home management and self care. Is 22/04 care available? Yes ADVANCED DIRECTIVES, POA &/or COLST IN PLACE: Healthcare Directive: No, patient does not have advance directive for healthcare treatment Information Provided on Healthcare Directives: No Information on Healthcare Directives Requested: No DIRECTIVES FOR FINANCES: Directive For Finances: No TRANSPORTATION: Transportation: Family CULTURAL, YAZDANISM and/or LANGUAGE factors affecting health care/discharge planning: Spiritual/Cultural Requests: None Any factors affecting health care/discharge planning?: No Insurance in Place: DISCHARGE RISK ASSESSMENT: None of the above risks identified Total # selected above: Tentative plan to address the risk of re-hospitalization for those at HIGH MODERATE RISK: RAPT TOOL: Patient expects to be discharged to: home FUNCTIONAL STATUS: Activities patient requires assistance: None Assistive Device: None COMMUNITY RESOURCES/SUPPORTS: Primary Care Provider: Doctor Aaron Currie MD PCP Verified: Yes (Aaron Currie MD) Specialists: None Home Care Services: No Type of Home Care Services: None DME Provider: None Pharmacy: ([facility]) Home Health: Other: POST HOSPITAL TRANSITION PLAN: Case management will continue to follow through transition to discharge. Patient is awaiting echo results. Anticipate discharge today with family. No needs identified at this time. 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 Objective: VS: Temp: [37 ??C (98.6 ??F)-37.2 ??C (99 ??F)] (), Heart Rate: [68 BPM-93 BPM] (), Pulse: [72-87] (), Resp: -- (), BP: (103-138)/(51-83) (), SpO2: [96 %-98 %] (), SpO2: 98 % I/O: I&O By Type - 3 Shifts Including Current In: 2137.6 [P.O.:1440; I.V.:517.6; Other:180] Out: 300 [Urine:300] Physical Exam: Gen: NAD. Lying in bed, cooperative. Obese. HEENT: no JVD. MMM, oropharynx clear, sclera non-icteric, PERRL. CV: Heart RRR, no MRG. Lungs: CTABL, no increased respiratory effort. Abdomen: soft, NT, non distended, +BS Neuro: A&Ox3, moves all 4 extremities Ext: warm and well perfused, no edema; L radial access c/d/i & R radial art line c/d/i, w/o erythema or edema Labs: Reviewed WBC/Hgb/Hct/Plts: 8.82/11.9/35.4/267 (07/29 547) MCV 80 Na/K/Cl/CO2: 139/4.3/107/22 (07/28 2244) BUN/Cr/glu/ALT/AST/amyl/lip: 100.64/--/--/--/--/-- (07/28 2244) Trop 14.8->17.1->14.9 Chol 181, Trigs 179, HDL 40, LDL 105, Chol:HDL 4.5 HgbA1C 5.4 Imaging: Left Heart Cath 07/29/16: Left main: normal Left anterior descending: Minimal irregs, 100% distal with evidence of dissection Leftcircumflex: Minimal irregs Right coronary artery: Minimal irregs Grafts: n/a LVEDP 20 mmHg Dx: PCI is indicated. Spontaneous distal LAD dissection with minimal CAD PCI: Using standard technique, the distal LAD 100% to 0% at lesion, SIENNA X1, 2.25 X 28, HP prox stent 2.5, flow reestablished into apical LAD and septals with residual cutoff at small distal end of LAD, a 1 mm vessel. Telemetry: NSR rate 80 ECG: NSR Assessment/Plan: Keyla Mora is a 46 y.o. female with 46 y.o. female without known CVD risk factors or significant PMHx who presented with CC chest pain with completed inferior STEMI at OSH and now admitted for NSTEMI in need of ischemic eval. LHC showed spontaneous distal LAD dissection with minimal CAD. This was stented with SIENNA x1. Pt tolerated the procedure well with minimal left-sided chest pressure s/p LHC and VSS. Will need Echo tomorrow. Plan: ?? NSTEMI: ??s/p PCI LAD DESx1, Trop downtrending, peaked at 17.1 -echo in am -continue heparin gtt thru 22:00 -switch to plavix 75mg in am -decrease atorvastatin 20 mg daily -increase to metoprolol XL 25mg daily -continue ASA 81 mg daily -EKG in the am to evaluate for dynamic changes (will get stat EKG if chest pain worsens) -monitor on telemetry -Nitro SL prn -will need f/u w/ Dr. Rosas and Cardiac Rehab at [facility] upon discharge FEN: DIET CAFFEINE FREE CARDIAC Prophylaxis: Heparin gtt per above, ambulate, SCD, IS Code Status: Full Code, full code for 48 hours after cardiac catheterization Disposition: likely home pending clinical course Venessa Zuniga MD, PGY-1 Pager # [phone] 07/29/2016 19:57 Attestation statement: I saw and examined the patient with the resident/fellow. I agree with the findings and plan of care documented in the resident's/fellow's note.] * Paco Jaime MD - 07/29/2016 1025 EDT Patient is stable post PCI. No complaints of chest pain or shortness of breath. Access site is without hematoma and distal pulses are at baseline. Plan continue post PCI care as outlined. Plan 12 hours of heparin post PCI Paco Jaime MD Attending Cardiology * Celina Moraes MD - 07/29/2016 0003 EDT Patient is a 46 year old lady with no significant past medical history who was transferred from [facility] where she presented with worsening 8 x 10 intensity retrosternal chest pain. She states she never had any cardiac problems or chest pain in the past. 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 This was associated with some nausea but no episodes of diaphoresis, shortness of breath, palpitations. she went to outside hospital for this and initial EKG showed concerning ST elevations in leads 2, V2 V3 and troponin of 0.48 with next troponin being elevated to 10.8 so was transferred to [facility] for further management. She received loading dose of aspirin, Plavix 300 mg and was started on heparin before transfer. Her CT pulmonary embolism protocol was negative. She states her chest pain has gotten better but she still has dull constant 2 x 10 intensity chest pain. On exam Alert oriented S1-S2 normal no murmur Air entry bilaterally equal Labs here are pending At outside hospital hemoglobin, platelets, creatinine, GFR normal Troponin 0.48> 10.8 EKG at outside hospital initially showed concerning ST elevations in, V2 and V3 which improved on arepeat EKG, EKG here shows normal sinus rhythm with continued improvement in these ST changes. Plan #1 NSTEMI -labs pending, continue to trend troponin until peaks -betablockers such as Metoprolol 12.5 BID, high intensity statins -already loaded with aspirin 324 and received 300 of plavix this afternoon at OSH. Continue with aspirin, heparin and brilanta 180 mg. Will change to ticagrelor as concerning ST changes in this youngfemale. -We will give another dose of nitroglycerin to help with the chest pain. His chest pain gets worse or becomes hemodynamically unstable, ST changes on EKG might need emergent heart cath -NPO from midnight for possible LHC ON SATURDAY -echo PATIENT CONSENT TO CARDIOVASCULAR CATHETERIZATION OR INTERVENTION: I, Celina Moraes MD, have explained the risks and benefits of cardiac catheterization and/or intervention to the patient (or responsible constitution party) and have answered the patient's (or responsible constitution party's) questions. To the best of my knowledge, the patient (or responsible constitution party) has been adequately informed. The patient (or responsible constitution party) has consented to the interventional cardiac procedure. As part of the consent we reviewed that, like surgical procedures, interventional procedures require aggressive short term support to determine the potential benefits of the procedures. For this reason, the patient (or responsible constitution party) has agreed to remain FULL CODE for a minimum of 48 hours after the procedure. Celina Moraes MD 07/29/2016 0:08 documented in this encounter H&P Notes * Micah Garvin MD - 07/28/2016 2300 EDT Cardiology Admission H+P Date of Service: 07/28/2016 Chief Complaint: Chest pain HPI: Keyla Mora is an active 46 y.o.female with no significant PMHx and risk factors for CVD who presents with new onset of CP. Pt was in her usual state of health until around 1 pm today 07/28 when she felt not well while sitting down in a classroom and then experienced substernal chest pain after walking to the bathroom. She describes the pain as substernal, pressure-like, radiated down to left arm with associated tingling and numbness, and had associated nausea and diaphoresis but no sob. The pain was 6/-8/10 but then subsided to 2/10 after arriving at [facility]. At OSH, her labs were notable for trop 0.48 at 1535 which trended up to 10.8 at 1950. EKG showed ST elevations in leads II and V2-V3. CT PE protocol was negative, per report. She was loaded with plavix 300 mg, ASA 324, and started on heparin gtt. She was also given nitro x1 with minimal relief and she did not tolerate the medication, making her feels bad but her vitals were stable. She was t ransferred here for further care. At time of arrival, she had continued chest pain 2/10 in severity, similar to the chest pain as earlier today. Her vitals were stable. Labs were notable for trop of 14.8. EKG showed NSR and resolution of ST elevations. She denies lightheadedness, sob, cough, abdominal pain, nausea, emesis, diarrhea, hematochezia/melena, dysuria, LE edema, and orthopnea. She denies personal medical history of DM, HTN, HLD, hypercoagulopathy, or bleeding diathesis. She also denies family history of early CVD. Review of Systems: A ten point review of systems was performed. Pertinent positives and negatives are noted in HPI. PMH PSH History reviewed. No pertinent past medical history. Past Surgical History Procedure Laterality Date ??? Cholecystectomy approx 2010 ??? Tubal ligation Social History Family History Social History Substance Use Topics ??? Smoking status: Never Smoker ??? Smokeless tobacco: Never Used ??? 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 Hypertension Mother ??? Hypertension Father Medications No current facility-administered medications on file prior to encounter. No current outpatient prescriptions on file prior to encounter. Allergies Allergies Allergen Reactions ??? Bactrim [Sulfamethoxazole-Trimethoprim] Rash and Fever Objective/Physical Exam: Vital Signs: Visit Vitals ??? BP 122/71 ??? Pulse 87 ??? Ht 167.6 cm (66) ??? Wt 99.8 kg (220 lb) ??? BMI 35.51 kg/m2 Wt Readings from Last 3 Encounters: 07/28/16 99.8 kg (220 lb) Physical exam: GEN: A&Ox3, NAD, appears obese HEENT: MMM, oropharynx clear, PERRL, nonicteric sclera, no cervical LAD PULM: CTAB, nl WOB CV: RRR, S1&2 noted, no MGRs, no JVD, LE pulses 2+ bilaterally ABD: Soft, nontender, +BS : no brown EXT: no clubbing, cyanosis, or pitting edema SKIN: no rashes, skin warm and dry NEURO: A&Ox3 CN 2-12 grossly intact PSYCH: nl affect, appropriately responds to questions Pressure Ulcer Present on admission? No Labs: WBC/Hgb/Hct/Plts: 9.70/11.5/34.3/287 (07/28 2244) BUN/Cr/glu/ALT/AST/amyl/lip: 10/0.64/--/--/--/--/-- (07/28 2244) Na/K/Cl/CO2: 139/4.3/107/22 (07/28 2244) Cardiac Markers Recent Labs 07/28/162243 TROPONINI 14.800* EKG: NSR with rate 84, ST elevation significantly improved as compared to previous OSH studies. Assessment: 46 y.o. female without known CVD risk factors and significant PMHx who presented with CC chest pain with completed STEMI at OSH and now admitted for NSTEMI. Pt is hemodynamically stable with low grade chest pain, and therefore does not need an urgent LHC. Plan: NSTEMI: -LHC in am -echo in am -continue heparin gtt (s/p bolus at OSH) -switch to ticagrelor (loaded with 180 mg, start 90 mg bid in am), s/p loaded with plavix 300 mg atOSH -start atorvastatin 40 mg daily -start metoprolol 12.5 mg bid -continue ASA 81 mg in am (s/p loaded at OSH) -trend troponin -EKG in the am to evaluate for dynamic changes (will get stat EKG if chest pain worsens) -monitor on telemetry -Nitro SL prn -Assess risk factors: FLP and HbA1c Diet: Cardiac diet, NPO after midnight for possible LHC in am Code status: Full DVT ppx: on heparin gtt Disposition: uncertain at this time Lindsay Hector Vyas, DO 07/29/2016 0:50 PGY-2 Attestation statement: Supervising Physician. I saw and examined Mrs. Mora on morning rounds on July 29, 2016. I agree with the history, physical and the assessment plans as outlined above. documented in this encounter Procedure Notes * Paco Jaime MD - 07/29/2016 0936 EDT Cardiovascular Catheterization Laboratory Preliminary Report -- Catheterization Date of Service/Procedure: 07/29/2016 Attending Physician: Paco Jaime MD Fellow: Mark Valdes MD Pre-Procedure Diagnosis/Indication: Keyla Mora is a 46 y.o. year old female with NSTEMI. NCDR Indication for PCI:NSTEMI Prior Stress Testing? No Cardiac Medications: On two or more anti anginal medications at the time of catheterization? No Anesthesia: A moderate level of anesthesia/conscious sedation was used in addition to local anesthesia. Access:Right radial artery Procedure: She was brought to [facility] Cardiac [facility]atheter[facility] Laboratory for the procedure: Diagnostic coronary/graft angiography, Left heart cath and Coronary intervention (PCI). Closure: TR Band Post-Procedure Condition: The condition of the patient was Fair. Complications: None. IV Contrast Total: 170 mL Estimated Blood Loss: Minimal. Unless otherwise noted,there were no specimens removed, cultures obtained, or drains retained. Research Study: Patient is not enrolled in a research study. Diagnostic Cardiac Study Results Left main: normal Left anterior descending: Minimal irregs, 100% distal with evidence of dissection Leftcircumflex: Minimal irregs Right coronary artery: Minimal irregs Grafts: n/a Left Ventriculography and Hemodynamic Results LVEDP 20 mmHg Endovascular Study Results None Post-Procedure Diagnostic Conclusion: PCI is indicated. Spontaneous distal LAD dissection with minimal CAD Interventional Procedure: Using standard technique, the distal LAD 100% to 0% at lesion, SIENNA X1, 2.25 X 28, HP prox stent 2.5, flow reestablished into apical LAD and septals with residual cutoff at small distal end of LAD, a 1 mm vessel. Plan: See post-procedure orders. Aspirin 81mg po daily. Plavix 75 mg po daily x 1 year minimum. Check echocardiogram for EF. Start MAGDY inhibitors if EF < 40 % or s/s of CHF. Evaluation for cardiac rehab program. Plan on toprol and lipitor, F/U [facility] with Dr. Rosas At the completion of the procedure, the attending physician has explained the findings, therapies, any complications and treatment plan to the patient. With the patients consent, all family members and patient support persons who were present at the conclusion of the procedure have been notified ofthese results and treatment plans as well. Post Interventional Conclusion/Physician Disposition: (check one main category) Inpatient procedure, continue inpatient status (no procedural complication required) Paco Jaime MD PagerNumber: [phone] 07/29/2016 9:37 documented in this encounter Miscellaneous Notes * Plan of Care - Babar Welch RN - 07/30/2016 1346 EDT D: Patient discharged home per MD. A: IV removed, catheter tip intact. Telemetry removed. RN reviewed discharge instructions and medications with patient and . Patient received information about prescriptions, medication sheets, and discharge instructions. R: Patient expressed good understanding of discharge instructions. They have no questions at this time. Patient dressed independently. They left via wheelchair. * Plan of Care - Carter Karimi RN - 07/30/2016 0001 EDT Problem: Daily Care Plan Goals Goal: Care Plan Documentation Outcome: Ongoing 07/29/16 1677 Care Plan Focus Area of Focus Circulatory Status Goal This Shift VSS Data: Patient is resting comfortably in bed she denies pain at this time and her vitals are within normal limits. Action: Her is staying overnight at the bedside. She is independent to the bathroom and denies needs at this time. Response: Continue to monitor vitals as ordered promote rest at night. Carter Karimi RN 07/30/2016 0:00 * Plan of Care - Quyen Marsh RN - 07/29/2016 1927 EDT Problem: Daily Care Plan Goals Goal: Care Plan Documentation Outcome: Met This Shift 07/29/16 1737 Care Plan Focus Area of Focus Circulatory Status Goal This Shift stable rhythm and vs Data: Assumed care of pt at 1530. Admitted last night with NSTEMI, now s/p PCI to distal LAD. R radial approach. NSR on tele. VSS. Continues to endorse 1/10 CP since returning from pit laborer. Heparin gtt infusing per order until 2100. Pt A&Ox3, independent in room. Radial site CDI. Action: Assessment per flow sheet. Reviewed post care plan of care. Instructed pt to report any change in symptoms. Response: Pt with no issues this shift. NSR on tele. Continue to monitor. Quyen Marsh RN 07/29/2016 19:20 * Plan of Care - Venessa Rios RN - 07/29/2016 1238 EDT Problem: Daily Care Plan Goals Goal: Care Plan Documentation 07/29/16 0721 Care Plan Focus Area of Focus Other Goal This Shift pt will tolerate cath Data: Pt plans to go to pit laborer this AM. Pt arrived back from RRA cath with minimal pain and VSS Blood pressure 126/57, pulse 72, temperature 37 ??C (98.6 ??F), height 167.6 cm (66), weight 99.8 kg(220 lb), SpO2 98 %. Action: Educated pt on post procedure instructions, followed bed rest orders, deflated TR band per policy, closely monitored VS and cath site. Response: Pt resting comfortably, family present at the bed side. Plan to ambulate this afternoon. Venessa Rios RN 07/29/2016 12:34 Problem: Pain: Goal: Pain level will decrease Outcome: Met This Shift Pt reports pain levels are 1/10 and tolerable. Problem: Cardiac: Goal: Ability to maintain clinical measurements within defined limits will improve Outcome: Met This Shift Pt's VSS Blood pressure 126/57, pulse 72, temperature 37 ??C (98.6 ??F), height 167.6 cm (66), weight 99.8 kg (220 lb), SpO2 98 %. telemetry WDL Problem: Activity: Goal: Ability to tolerate increased activity will improve Outcome: Ongoing Plan to ambulate this afternoon Problem: Coping: Goal: Patient???s and family???s ability to cope will improve Outcome: Met This Shift Pt and family coping well with procedure * Plan of Care - Trina Herring RN - 07/29/2016 0551 EDT Problem: Daily Care Plan Goals Goal: Care Plan Documentation Outcome: Ongoing 07/28/16 3674 Care Plan Focus Area of Focus Circulatory Status Goal This Shift vss Data: Pt admitted to [facility] from [facility] for NSTEMI. Pt c/o 11/09 mid- sternal CP that has not been relieved with nitro at OSH. Hep drip running at 10 mL/hr from OSH. Action: Tele applied. VS and tele monitored. Admission database complete. Assessment as documented.Hep started per order. Response: VS and tele monitored. Pt states pain has stayed the same with no relief from tylenol or nitro. Plan for [facility] today. Trina Herring RN 07/29/2016 5:48 documented in this encounter Plan of Treatment Upcoming Encounters Date Type Department Care Team (Late st Contact Info) Description 08/10/2024 13:[address] [facility] [address] [place] [address] Melanie Chamberlain MD [address] [place] [address], [facility] [address] [place] [address] Scheduled Referrals Name Type Priority Associated Diagnoses Order Schedule AMB CONS/FOLLOW UP PRIMARY CARE PHYSICIAN Outpatient Referral Routine NSTEMI (non-ST elevated myocardial infarction) ([facility]) Ordered: 07/30/2016 AMB CONS/FOLLOW UP CARDIAC REHABILITATION Outpatient Referral Routine NSTEMI (non-ST elevated myocardial infarction) ([facility]) Ordered: 07/30/2016 AMB CONS/FOLLOW UP CARDIOLOGY Outpatient Referral Routine NSTEMI (non-ST elevated myocardial infarction) ([facility]) Ordered: 07/30/2016 documented as of this encounter Procedures Procedure Name Priority Date/Time Associated Diagnosis Comments ECG REPORT - SCANNED 08/13/2016 11:10 EST ECG REPORT - SCANNED 08/13/2016 11:08 EST ECG REPORT - SCANNED 08/10/2016 10:17 EST ECG REPORT - SCANNED 08/10/2016 8:33 EST ECG REPORT - SCANNED 08/09/2016 12:18 EST ECG REPORT - SCANNED 08/01/2016 14:52 EDT ECG REPORT - SCANNED 08/01/2016 14:52 EDT ECHOCARDIOGRAM Routine 07/30/2016 11:30 EDT HEPARIN LEVEL - UNFRACTIONATED HEPARIN STAT 07/30/2016 5:46 EDT COMPLETE BLOOD COUNT Routine 07/30/2016 5:46 EDT CREATININE Routine 07/30/2016 5:46 EDT ELECTROLYTES Routine 07/30/2016 5:46 EDT TROPONIN I Routine 07/29/2016 14:10 EDT EKG 12-LEAD Routine 07/29/2016 10:45 EDT LEFT HEART CATH Routine 07/29/2016 7:47 EDT EKG 12-LEAD Routine 07/29/2016 6:10 EDT HOLD SST Routine 07/29/2016 5:47 EDT TROPONIN I STAT 07/29/2016 5:47 EDT HEPARIN LEVEL - UNFRACTIONATED HEPARIN STAT 07/29/2016 5:47 EDT COMPLETE BLOOD COUNT Routine 07/29/2016 5:47 EDT TROPONIN I Routine 07/28/2016 22:44 EDT HEPARIN LEVEL - UNFRACTIONATED HEPARIN STAT 07/28/2016 22:44 EDT COMPLETE BLOOD COUNT Routine 07/28/2016 22:44 EDT BUN Routine 07/28/2016 22:44 EDT HEMOGLOBIN A1C Routine 07/28/2016 22:44 EDT CREATININE Routine 07/28/2016 22:44 EDT LIPID PROFILE (INCLUDES CHOLESTEROL, TRIGLYCERIDES, HDL, LDL) Routine 07/28/2016 22:44 EDT ELECTROLYTES Routine 07/28/2016 22:44 EDT EKG 12-LEAD 07/28/2016 22:33 EDT EKG 12-LEAD Routine 07/28/2016 22:32 EDT documented in this encounter Results * ECG REPORT - SCANNED (08/13/2016 11:10 EST) 08/13/2016 11:1 0 EST Scan 2 User Support Analyst PROCEDURE/MINOR GARY GICAL ORDERABLES * ECG REPORT - SCANNED (08/13/2016 11:08 EST) 08/13/2016 11:0 8 EST Scan 2 User Support Analyst PROCEDURE/MINOR GARY GICAL ORDERABLES * ECG REPORT - SCANNED (08/10/2016 10:17 EST) 08/10/2016 10:1 7 EST Scan 2 User Support Analyst PROCEDURE/MINOR GARY GICAL ORDERABLES * ECG REPORT - SCANNED (08/10/2016 8:33 EST) 08/10/2016 8:33 EST Scan 2 User Support Analyst PROCEDURE/MINOR GARY GICAL ORDERABLES * ECG REPORT - SCANNED (08/09/2016 12:18 EST) 08/09/2016 12:1 8 EST Scan 2 User Support Analyst PROCEDURE/MINOR GARY GICAL ORDERABLES * ECG REPORT - SCANNED (08/01/2016 14:52 EDT) 08/01/2016 14:5 2 EDT Scan 2 User Support Analyst PROCEDURE/MINOR GARY GICAL ORDERABLES * ECG REPORT - SCANNED (08/01/2016 14:52 EDT) 08/01/2016 14:5 2 EDT Scan 2 User Support Analyst PROCEDURE/MINOR GARY GICAL ORDERABLES * ECHOCARDIOGRAM (07/30/2016 11:30 EDT) Anatomical Region Laterality Modality Other 07/30/2016 11:3 0 EDT Narrative 07/30/2016 11:55 EDT *Interpreting Group:* *[facility]* [address] [place] [address] Date of study: 07/30/2016 Transthoracic Echocardiography M-mode, complete 2D, complete spectral Doppler, and color Doppler *STUDY CONCLUSIONS* Summary: 1. Left ventricle: The cavity size was normal. Wall thickness was ?? normal. Systolic function was normal. The estimated ejection fraction ?? was 55-60%. There was hypokinesis of the apicalanteroseptal and ?? apical myocardium. Diastolic parameters were normal. 2. Right ventricle: The cavity size was normal. Systolic function was ?? normal. *PATIENT PRESENTATION* Height: ? 167.6cm ((66in) ) S/D Pressure: 109 / 45 Weight: ? 99.8kg ((219.5lb) ) BSA: ?2.2m^2 Test start time: ??10:25 AM. Test stop time: ??00:47 AM. ADMITTING ?Micah Garvin MD ATTENDING ?Carmina Noble MD FELLOW ? Jaxon Rush MD ORDERING ? Vo Do Lindsay Hector REFERRING ?Lindsay Vyas Do PARKING INSPECTOR ??Michelle Le PERFORMING ?? Uvmm, *PROCEDURE DATA* Procedure information: ??This study was interpreted by [facility]. Pertinent images and digital data are archived for permanent storage and are available for subsequent review. Study status: ??Routine. Transthoracic echocardiography. ??M-mode, complete 2D, complete spectral Doppler, and color Doppler. A Transthoracic Echocardiogram was performed. Scanning was performed from the parasternal, apical, subcostal, and suprasternal notch acoustic windows. Images were obtained using an Locaiq 12 cardiac ultrasound machine. Image quality was adequate. ??Study completion: ??The patient tolerated the procedure well. There were no complications. *INDICATIONS AND HISTORY* Indications: ?? NSTEMI (i21.4), known, pre-procedure. *CARDIAC ANATOMY* Left ventricle: ??The cavity size was normal. Wall thickness was normal. Systolic function was normal. The estimated ejection fraction was 55-60%. ??Regional wall motion abnormalities: ?? There was hypokinesis of the apicalanteroseptal and apical myocardium. Diastolic parameters were normal. Aortic valve: ?? Trileaflet; normal thickness leaflets. Mobility was not restricted. ??Doppler: ??Transvalvular velocity was within the normal range. There was no stenosis. There was no regurgitation. Aorta: ??Aortic root: The aortic root was normal in size. Mitral valve: ?? Structurally normal valve. ?? Mobility was not restricted. ??Doppler: ??Transvalvular velocity was within the normal range. There was no evidence for stenosis. There was trivial regurgitation. ?Peak gradient (D): 2.4mm Hg. Left atrium: ??The atrium was normal in size. Right ventricle: ??The cavity size was normal. Systolic function was normal. Pulmonic valve: ?The valve appears to be grossly normal. ?Doppler: Transvalvular velocity was within the normal range. There was no evidence for stenosis. There was no regurgitation. Tricuspid valve: ?? Structurally normal valve. ?Doppler: ??Transvalvular velocity was within the normal range. There was no evidence for stenosis. There was no regurgitation. Pulmonary artery: ?? The main pulmonary artery was normal-sized. Systolic pressure could not be accurately estimated. Right atrium: ??The atrium was normal in size. Pericardium: ??There was no pericardial effusion. Systemic veins: Inferior vena cava: Poorly visualized. Measurements Left ventricle ?Value ?Reference LV ejection fraction, 1-p A2C ? 57 ?% ? LV ejection fraction, 1-p A4C ? 59 ?% ? LV IVRT, DP ? 85 ?ms ? 60 - 100 LVOT ?Value ?Reference LVOT ID, S ?2.0 ?? cm ? LVOT area ? 3.1 ?? cm^2 ?? Aorta ? Value ?Reference Aortic root ID ?2.7 ?? cm ? Ascending aorta ID, A-P ? 2.5 ?? cm ? Ascending aorta ID, A-P, S ?2.5 ?? cm ? Left atrium ? Value ?Reference LA ID, A-P, ES ?3.8 ?? cm ? LA ID/bsa, A-P ?1.7 ?? cm/m^2 <=2.2 LA area, ES, A4C ?14.2 ??cm^2 ?? 8.8 - 23.4 LA area, ES, A2C ?13 ?cm^2 ?? LA volume, ES, 2-p ?31 ?ml ? LA volume/bsa, ES, 2-p ?14 ?ml/m^2 LA/aortic root ratio ?1.41 ? Mitral valve ?Value ?Reference Mitral E-wave peak velocity ? 0.78 ??m/sec ?? Mitral A-wave peak velocity ? 0.73 ??m/sec ?? Mitral deceleration time ?(L) 130 ?? ms ? 150 - 230 Mitral peak gradient, D ? 2.4 ?? mm Hg ?? Mitral E/A ratio, peak ?1.1 ? Other ? Value ?Reference LV e', lateral ?0.094 m/sec ?? LV E/e', lateral ?8 ? LV e', medial ? 0.067 m/sec ?? LV E/e', medial ? 12 ? LV e', average ?0.081 m/sec ?? LV E/e', average ?10 ? Legend: (L) ??and ??(H) ??lois values outside specified reference range. I have personally reviewed the images and have reviewed and edited the reported findings. Electronically signed by Kong Lee MD 07/30/2016 11:54 Procedure Note Kong Lee MD - 07/30/2016 *Interpreting Group:* *[facility]* [address] [place] [address] Date of study: 07/30/2016 Transthoracic Echocardiography M-mode, complete 2D, complete spectral Doppler, and color Doppler *STUDY CONCLUSIONS* Summary: 1. Left ventricle: The cavity size was normal. Wall thickness was normal. Systolic function was normal. The estimated ejection fraction was 55-60%. There was hypokinesis of the apicalanteroseptal and apical myocardium. Diastolic parameters were normal. 2. Right ventricle: The cavity size was normal. Systolic function was normal. *PATIENT PRESENTATION* Height: 167.6cm ((66in) ) S/D Pressure: 109 / 45 Weight: 99.8kg ((219.5lb) ) BSA: 2.2m^2 Test start time: 10:25 AM. Test stop time: 00:47 AM. ADMITTING Micah Garvin MD ATTENDING Carmina Noble MD FELLOW Jaxon Rush MD ORDERING Lindsay Vyas Do REFERRING Lindsay Vyas Do PARKING INSPECTOR Michelle Le PERFORMING [facility] *PROCEDURE DATA* Procedure information: This study was interpreted by [facility]. Pertinent images and digital data are archived for permanent storage and are available for subsequent review. Study status: Routine. Transthoracic echocardiography. M-mode, complete 2D, complete spectral Doppler, and color Doppler. A Transthoracic Echocardiogram was performed. Scanning was performed from the parasternal, apical, subcostal, and suprasternal notch acoustic windows. Images were obtained using an Locaiq 12 cardiac ultrasound machine. Image quality was adequate. Study completion: The patient tolerated the procedure well. There were no complications. *INDICATIONS AND HISTORY* Indications: NSTEMI (i21.4), known, pre-procedure. *CARDIAC ANATOMY* Left ventricle: The cavity size was normal. Wall thickness was normal. Systolic function was normal. The estimated ejection fraction was 55-60%. Regional wall motion abnormalities: There was hypokinesis of the apicalanteroseptal and apical myocardium. Diastolic parameters were normal. Aortic valve: Trileaflet; normal thickness leaflets. Mobility was not restricted. Doppler: Transvalvular velocity was within the normal range. There was no stenosis. There was no regurgitation. Aorta: Aortic root: The aortic root was normal in size. Mitral valve: Structurally normal valve. Mobility was not restricted. Doppler: Transvalvular velocity was within the normal range. There was no evidence for stenosis. There was trivial regurgitation. Peak gradient (D): 2.4mm Hg. Left atrium: The atrium was normal in size. Right ventricle: The cavity size was normal. Systolic function was normal. Pulmonic valve: The valve appears to be grossly normal. Doppler: Transvalvular velocity was within the normal range. There was no evidence for stenosis. There was no regurgitation. Tricuspid valve: Structurally normal valve. Doppler: Transvalvular velocity was within the normal range. There was no evidence for stenosis. There was no regurgitation. Pulmonary artery: The main pulmonary artery was normal-sized. Systolic pressure could not be accurately estimated. Right atrium: The atrium was normal in size. Pericardium: There was no pericardial effusion. Systemic veins: Inferior vena cava: Poorly visualized. Measurements Left ventricle Value Reference LV ejection fraction, 1-p A2C 57 % LV ejection fraction, 1-p A4C 59 % LV IVRT, DP 85 ms 60 - 100 LVOT Value Reference LVOT ID, S 2.0 cm LVOT area 3.1 cm^2 Aorta Value Reference Aortic root ID 2.7 cm Ascending aorta ID, A-P 2.5 cm Ascending aorta ID, A-P, S 2.5 cm Left atrium Value Reference LA ID, A-P, ES 3.8 cm LA ID/bsa, A-P 1.7 cm/m^2 <=2.2 LA area, ES, A4C 14.2 cm^2 8.8 - 23.4 LA area, ES, A2C 13 cm^2 LA volume, ES, 2-p 31 ml LA volume/bsa, ES, 2-p 14 ml/m^2 LA/aortic root ratio 1.41 Mitral valve Value Reference Mitral E-wave peak velocity 0.78 m/sec Mitral A-wave peak velocity 0.73 m/sec Mitral deceleration time (L) 130 ms 150 - 230 Mitral peak gradient, D 2.4 mm Hg Mitral E/A ratio, peak 1.1 Other Value Reference LV e', lateral 0.094 m/sec LV E/e', lateral 8 LV e', medial 0.067 m/sec LV E/e', medial 12 LV e', average 0.081 m/sec LV E/e', average 10 Legend: (L) and (H) lois values outside specified reference range. I have personally reviewed the images and have reviewed and edited the reported findings. Electronically signed by Kong Lee MD 07/30/2016 11:54 Lindsay Vyas DO CARDIAC ECHO ORDERAB LES * CREATININE (07/30/2016 5:46 EDT) Creatinine 0.70 0.52 - 1.04 mg/dl 07/30/2016 6:46 EDT [facility] GFR, Calculated 104 >60 ml/min/1.7 3m2 07/30/2016 6:46 EDT [facility] Comment: eGFR calculated using CKD-EPI equation for non Americans. Multiply eGFR by 1.16 for Americans. Blood specimen (specimen) BLOOD SPECIMEN / Unknown 07/30/2016 5:46 EDT 07/30/2016 6:11 EDT Kathy Lugo MD CHEMISTRY & B LOOD GAS ORDERABLES [facility] [address] [place] [address] * (ABNORMAL) ELECTROLYTES (07/30/2016 5:46 EDT) Sodium 139 136 - 145 mEq/L 07/30/2016 6:46 EDT [facility] Potassium 4.4 3.5 - 5.0 mEq/L 07/30/2016 6:46 EDT [facility] Chloride 107 96 - 110 mEq/L 07/30/2016 6:46 EDT [facility] CO2 19(L) 22 - 32 mEq/L 07/30/2016 6:46 EDT [facility] Comment:Note new reference r priya 07/17/16 Blood specimen (specimen) BLOOD SPECIMEN / Unknown 07/30/2016 5:46 EDT 07/30/2016 6:11 EDT Kathy Lugo MD CHEMISTRY & B LOOD GAS ORDERABLES [facility] [address] [place] [address] * (ABNORMAL) HEMAGRAM (07/30/2016 5:46 EDT) WBC 10.03 4.0 - 12.4 K/cmm 07/30/2016 6:24 EDT [facility] RBC 4.58 3.86 - 5.04 M/cmm 07/30/2016 6:24 T [facility] Hemoglobin 12.0 11.6 - 15.2 gm/dl 07/30/2016 6:24 T [facility] HCT 36.6 34.9 - 44.4 % 07/30/2016 6:24 T [facility] MCV 80(L) 81 - 98 fl 07/30/2016 6:24 T [facility] MCH 26.2(L) 26.7 - 33.3 pg 07/30/2016 6:24 T [facility] MCHC 32.8 32.1 - 35.9 gm/dl 07/30/2016 6:24 T [facility] RDW-CV 13.2 11.7 - 14.6 % 07/30/2016 6:24 EDT [facility] [facility] RDW-SD 37.7 37.6 - 50.3 fl 07/30/2016 6:24 EDT [facility] PLT 283 141 - 377 K/cmm 07/30/2016 6:24 EDT [facility] MPV 11.2 9.5 - 12.7 fl 07/30/2016 6:24 EDT [facility] Blood specimen (specimen) BLOOD SPECIMEN / Unknown 07/30/2016 5:46 EDT 07/30/2016 6:11 EDT Kathy Lugo MD HEMATOLOGY & PF4 ORDERABLES Performing Organization Address [facility] Co de Phone Number [facility] [address] [place] [address] * HEPARIN LEVEL - UNFRACTIONATED HEPARIN (07/30/2016 5:46 EDT) Heparin Level-UFH <0.10 IU/mL 016 6:27 EDT [facility] Comment: Unfractionated heparin therapeutic range = 0.3-0.7 IU/ml This test is not intended for monitoring direct Xa inhibitors, direct thrombin inhibitors, or fondaparinux. Exogenous ATIII is NOT supplied in this assay. For unexpected or persistently low levels, consider measuring patient's ATIII level. Sample retested, result confirmed Blood specimen (specimen) BLOOD SPECIMEN / Unknown 07/30/2016 5:46 EDT 07/30/2016 6:11 EDT Lindsay Vyas DO HEMATOLOGY & PF4 ORD ERABLES Performing Organization Address City/[facility]/ZIP Co de Phone Number [facility] [address] [place] [address] * (ABNORMAL) TROPONIN I (07/29/2016 14:10 EDT) Troponin I (ng/mL) 14.900(H) <0.034 ng/ml 07/29/2016 14:45 EDT [facility] Blood specimen (specimen) BLOOD SPECIMEN / Unknown 07/29/2016 14:10 EDT 07/29/2016 14:14 EDT Lindsay Vyas DO CHEMISTRY & BLOOD GA S ORDERABLES [facility] [address] [place] [address] * EKG 12-LEAD (07/29/2016 10:45 EDT) 07/29/2016 10:4 5 EDT Narrative [facility] EKG - 08/09/2016 8:46 EST ? [facility] ? Test Date: ?2016-07-29 Pat Name: ? KEYLA MORA ?Department: ?? MON[facility]O 5 ? Room: ? MW511 Gender: ? F ?Fisher Trawl Net: ?? [id number] : ?1970 ? Requested By: TAYA DELCID Order Number: [id number] ? Amy BARBA: ?? MODESTO WILSON SA, MD ? Measurements Intervals ?[place] ? Rate: ? 74 ? P: ?1 OR: ? 167 ?QRS: ?33 QRSD: ? 79 ? T: ?32 QT: ? 378 ? QTc: ?422 ? Interpretive Statements SINUS RHYTHM Compared to ECG 07/29/2016 06:10:59 No significant changes This is a preliminary report. ??Edited by PASTORA BOWEN MD on 07-29-16 19:52:54 EDT. I have reviewed the study and I concur with findings above. I reviewed the tracing and have either agreed or edited the findings in this report. Electronically Signed On 08-09-16 08:46:22 EST by MODESTO WILSON SA, MD. Procedure Note Modesto Morin Sa, MD - 08/09/2016 [facility] Test Date: 2016-07-29 Pat Name: KEYLA MORA Department: [place] [address] Room: [facility] Gender: F Fisher Trawl Net: [id number] : 1970 Requested By: TAYA DELCID Order Number: [id number] Amy MD: MODESTO SLADE Measurements Intervals [place] Rate: 74 P: 1 OR: 167 QRS: 33 QRSD: 79 T: 32 QT: 378 QTc: 422 Interpretive Statements SINUS RHYTHM Compared to ECG 07/29/2016 06:10:59 No significant changes This is a preliminary report. Edited by PASTORA BOWEN MD on 07-29-16 19:52:54 EDT. I have reviewed the study and I concur with findings above. I reviewed the tracing and have either agreed or edited the findings inthis report. Electronically Signed On 08-09-16 08:46:22 EST by MODESTO BENEDICT MD. Mark Valdes MD CARDIAC ECG ORDER KIKO [facility] EKG * LEFT HEART CATH (07/29/2016 7:47 EDT) Anatomical Region Laterality Modality Other 07/29/2016 7:47 EDT Narrative 07/30/2016 9:43 EDT Cardiology [address] [place] [address] Catheterization Laboratory Study Patient: Keyla Mora ? Study Date: ?07/29/2016 ? Accession #: ? [id number] : ? 1970 Referring Physician: Lindsay Vyas Do Diagnostic Attending: ??Paco Jaime Interventional Attending: ?? Paco Jaime Diagnostic Fellow: Mark Valdes MD Interventional Fellow: Mark Valdes MD ATTESTATION: Dr. Paco Jaime was present and supervising for the entire procedure, I Dr. Mark Valdes was the initial author of this report. I, Dr. Paco Jaime have reviewed and agree with the findings of this report. PROCEDURE PLAN: Based on the diagnostic study percutaneous coronary intervention is indicated. RESEARCH STUDY: Patient is not enrolled in any research studies. 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 SUMMARY: 1. HPI and indications: Hxd-PW-geqrhlqo myocardial infarction. 2. LAD: Distal vessel lesion: There is a discrete, 22mm (L)dissection. ?? This lesion is ulcerated. There is a filling defect consistent with ?? thrombus. There is ES grade 0 flow (no flow) across the lesion. The ?? lesion was stented (see 1st lesion intervention), with balloon ?? angioplasty. Following intervention, the lesion has a residual ?? stenosis of 0%, and improved angiographic appearance and return of ?? flow to a segment of the distal LAD. The distal apical portion of the ?? distal LAD remains occluded. Distal vessel lesion: There is a 100% ?? stenosis. RECOMMENDATIONS: 1. PCI w/o planned CABG. 2. Patient management should include a cardiac rehabilitation program. 3. Add statin therapy. 4. Add aspirin. 5. Add clopidogrel (Plavix). HISTORY: Cyq-MK-xksypbqw myocardial infarction. ??Functional status: ?? CCS class IV (angina at rest or with any physical activity). ??Risk factors: Obese. ??Medications: ??Beta blockers. Anti-anginal therapy. LABS, PRIOR TESTS, PROCEDURES AND SURGERY: Serum creatinine (current admission) of 0.6 mg/dl. ??Hematocrit of 35.4 %. ??Platelet count of 267 th/ul. ??Serum potassium (K) of 4.3 mEq/l. Blood urea nitrogen of 10 mg/dl. ??Hemoglobin (pre-procedure) of 11.9 g/dl. STUDY DATA: Study status: ??Percutaneous coronary intervention: urgent. ??Location: Catheterization laboratory. Sex: female. Patient is 46yr old. Height: 167.6cm. Weight: 99.8kg. BSA: 2.2m^2. Procedures performed: ?Right radial artery access. ?Left heart catheterization. ?Right coronary angiography. ?Left coronary angiography. ?Lesion intervention: ?? Percutaneous intervention on the dissection in the distal LAD. ?Balloon angioplasty. ?Stent placement. ?Balloon angioplasty. ?Balloon angioplasty. ANESTHESIA: Conscious sedation. PROCEDURE: 1. Initial setup. The patient was brought to the laboratory in the ?? fasting state. A baseline ECG was recorded. Surface ECG leads, ?? automatic cuff blood pressure measurements, and pulse oximetric ?? signals were monitored. 2. Skin preparation. The planned puncture sites were prepped with ?? chlorhexidine and draped in the usual sterile manner. 3. Right radial artery access. A 6 Fr/10/.021 [place] Sheath SLENDER ?? sheath was advanced into the vessel. 4. Left heart catheterization. A catheter was advanced across the aortic ?? valve to the left ventricle under fluoroscopic guidance. Resting ?? hemodynamics were obtained. Measurements included pressure recordings ?? from the left ventricle and aortic root. 5. Selective right coronary angiography. A 5 Fr Tig Catheter 4.0 ?? catheter was advanced into the right coronary vessel ostium under ?? fluoroscopic guidance. Contrast was injected. Images were obtained in ?? multiple projections. 6. Selective left coronary angiography. A 5 Fr Tig Catheter 4.0 catheter ?? was advanced into the left coronary vessel ostium under fluoroscopic ?? guidance. Contrast was injected. Images were obtained in multiple ?? projections. 7. Right radial artery hemostasis. Mechanical compression was applied. 1st lesion intervention: Percutaneous intervention on the dissection in the distal LAD. 1. Guider placement. A 6F Runway FL3.5 guiding catheter was placed. 2. Wire placement. A .014/185 Kinetix wire was placed across the lesion. 3. Balloon angioplasty. A 2mm (D) x 12mm (L), Mini Trek balloon was ?? employed. The balloon was placed across the lesion and given three ?? inflations with a maximum inflation pressure of 8atm. 4. Stent placement. A 2.25mm (D) x 28mm (L), Synergy stent was advanced ?? across the lesion and deployed with a single inflation and a maximum ?? pressure of 12atm. 5. Balloon angioplasty. A 1.5mm (D) x 12mm (L), Mini Trek balloon was ?? employed. The balloon was placed across the lesion and given three ?? inflations with a maximum inflation pressure of 10atm. 6. Balloon angioplasty. A 2.5mm (D) x 12mm (L), NC Quantum [place] balloon ?? was employed. The balloon was placed across the lesion and given two ?? inflations with a maximum inflation pressure of 14atm. STUDY COMPLETION: The estimated blood loss was 10ml. All catheters inserted during the procedure were removed. The patient tolerated the procedure well and was discharged from the lab. There were no complications. ??Contrast: Omnipaque 180ml (total dose). ??Omnipaque 120ml (wasted). ??Fluoroscopy time: ??12.1min. ??Fluoroscopy dose: ??93.5cGy. CORONARY ARTERIES: The coronary circulation is right dominant. Left main: ??Normal. LAD: ??Minor luminal irregularities. ??Distal vessel lesion: There is a discrete, 22mm [...] remains occluded. There were no site complications. ??Distal vessel lesion: There is a 100% stenosis. Left circumflex: ??Minor luminal irregularities. Right coronary: ??Minor luminal irregularities. HEMODYNAMICS: End diastolic pressure in the left ventricle is mildly elevated. Pressure measurements across the aortic valve show no evidence of stenosis. + + + Stage description ? Condition1:Condition 1 - + + + LV pressure s/ed ? 119/16 ? + + + Arterial pressure s/d (m) 120/78 (99) ? + + + * Electronically signed by Paco Jaime 2016-07-30 09:42 Procedure Note Paco Jaime MD - 06/07/[address] [place] [address] Catheterization Laboratory Study Patient: Keyla Mora Study Date: 07/29/2016 : 1970 Referring Physician: Lindsay Vyas Do Diagnostic Attending: Paco Jaime Interventional Attending: Paco Jaime Diagnostic Fellow: Mark Valdes MD Interventional Fellow: Mark Valdes MD ATTESTATION: Dr. Paco Jaime was present and supervising for the entire procedure, I Dr. Mark Valdes was the initial author of this report. I, Dr. Paco Jaime have reviewed and agree with the findings of this report. PROCEDURE PLAN: Based on the diagnostic study percutaneous coronary intervention is indicated. RESEARCH STUDY: Patient is not enrolled in any research studies. 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 SUMMARY: 1. HPI and indications: Ons-OG-wageyhql myocardial infarction. 2. LAD: Distal vessel lesion: There is a discrete, [...] portion of the distal LAD remains occluded. Distal vessel lesion: There is a 100% stenosis. RECOMMENDATIONS: 1. PCI w/o planned CABG. 2. Patient management should include a cardiac rehabilitation program. 3. Add statin therapy. 4. Add aspirin. 5. Add clopidogrel (Plavix). HISTORY: Hsc-AV-srtowcoc myocardial infarction. Functional status: CCS class IV (angina at rest or with any physical activity). Risk factors: Obese. Medications: Beta blockers. Anti-anginal therapy. LABS, PRIOR TESTS, PROCEDURES AND SURGERY: Serum creatinine (current admission) of 0.6 mg/dl. Hematocrit of 35.4 %. Platelet count of 267 th/ul. Serum potassium (K) of 4.3 mEq/l. Blood urea nitrogen of 10 mg/dl. Hemoglobin (pre-procedure) of 11.9 g/dl. STUDY DATA: Study status: Percutaneous coronary intervention: urgent. Location: Catheterization laboratory. Sex: female. Patient is 46yr old. Height: 167.6cm. Weight: 99.8kg. BSA: 2.2m^2. Procedures performed: Right radial artery access. Left heart catheterization. Right coronary angiography. Left coronary angiography. Lesion intervention: Percutaneous intervention on the dissection in the distal LAD. Balloon angioplasty. Stent placement. Balloon angioplasty. Balloon angioplasty. ANESTHESIA: Conscious sedation. PROCEDURE: 1. Initial setup. The patient was brought to the laboratory in the fasting state. A baseline ECG was recorded. Surface ECG leads, automatic cuff blood pressure measurements, and pulse oximetric signals were monitored. 2. Skin preparation. The planned puncture sites were prepped with chlorhexidine and draped in the usual sterile manner. 3. Right radial artery access. A 6 Fr/10/.021 [place] Sheath SLENDER sheath was advanced into the vessel. 4. Left heart catheterization. A catheter was advanced across the aortic valve to the left ventricle under fluoroscopic guidance. Resting hemodynamics were obtained. Measurements included pressure recordings from the left ventricle and aortic root. 5. Selective right coronary angiography. A 5 Fr Tig Catheter 4.0 catheter was advanced into the right coronary vessel ostium under fluoroscopic guidance. Contrast was injected. Images were obtained in multiple projections. 6. Selective left coronary angiography. A 5 Fr Tig Catheter 4.0 catheter was advanced into the left coronary vessel ostium under fluoroscopic guidance. Contrast was injected. Images were obtained in multiple projections. 7. Right radial artery hemostasis. Mechanical compression was applied. 1st lesion intervention: Percutaneous intervention on the dissection in the distal LAD. 1. Guider placement. A 6F Runway FL3.5 guiding catheter was placed. 2. Wire placement. A .014/185 Kinetix wire was placed across the lesion. 3. Balloon angioplasty. A 2mm (D) x 12mm (L), Mini Trek balloon was employed. The balloon was placed across the lesion and given three inflations with a maximum inflation pressure of 8atm. 4. Stent placement. A 2.25mm (D) x 28mm (L), Synergy stent was advanced across the lesion and deployed with a single inflation and a maximum pressure of 12atm. 5. Balloon angioplasty. A 1.5mm (D) x 12mm (L), Mini Trek balloon was employed. The balloon was placed across the lesion and given three inflations with a maximum inflation pressure of 10atm. 6. Balloon angioplasty. A 2.5mm (D) x 12mm (L), NC Quantum [place] balloon was employed. The balloon was placed across the lesion and given two inflations with a maximum inflation pressure of 14atm. STUDY COMPLETION: The estimated blood loss was 10ml. All catheters inserted during the procedure were removed. The patient tolerated the procedure well and was discharged from the lab. There were no complications. Contrast: Omnipaque 180ml (total dose). Omnipaque 120ml (wasted). Fluoroscopy time: 12.1min. Fluoroscopy dose: 93.5cGy. CORONARY ARTERIES: The coronary circulation is right dominant. Left main: Normal. LAD: Minor luminal irregularities. [...] luminal irregularities. Right coronary: Minor luminal irregularities. HEMODYNAMICS: End diastolic pressure in the left ventricle is mildly elevated. Pressure measurements across the aortic valve show no evidence of stenosis. + + + Stage description Condition1:Condition 1 - + + + LV pressure s/ed 119/16 + + + Arterial pressure s/d (m) 120/78 (99) + + + * Electronically signed by Paco Jaime 2016-07-30 09:42 Lindsay Vyas DO CARDIAC CATH ORDERAB LES * EKG 12-LEAD (07/29/2016 6:10 EDT) 07/29/2016 6:10 EDT Narrative [facility] EKG - 08/09/2016 8:18 EST ? [facility] ? Test Date: ?2016-07-29 Pat Name: ? KEYLA MORA ?Department: ?? [facility] 5 ? Room: ? MW511 Gender: ? F ?Fisher Trawl Net: ?? [id number] : ?1970 ? Requested By: VO LINDSAY P Order Number: [id number] ? Reading MD: ?? MODESTO SCHWARTZ DE SA MD ? Measurements Intervals ?[place] ? Rate: ? 75 ? P: ?-2 OR: ? 164 ?QRS: ?38 QRSD: ? 81 ? T: ?39 QT: ? 381 ? QTc: ?428 ? Interpretive Statements SINUS RHYTHM LOW QRS VOLTAGE IN PRECORDIAL LEADS Compared to ECG 07/28/2016 22:33:22 No significant changes This is a preliminary report. ??Edited by PASTORA BOWEN MD on 07-29-16 19:53:23 EDT. I have reviewed the study and I concur with findings above. I reviewed the tracing and have either agreed or edited the findings in this report. Electronically Signed On 08-09-16 08:18:54 EST by MODESTO WILSON SA, MD. Procedure Note Modesto Morin Sa, MD - 08/09/2016 [facility] Test Date: 2016-07-29 Pat Name: KEYLA MORA Department: [place] [address] Room: [facility] Gender: F Fisher Trawl Net: [id number] : 1970 Requested By: LILLIAM Young Order Number: [id number] Reading MD: MODESTO SLADE Measurements Intervals [place] Rate: 75 P: -2 OR: 164 QRS: 38 QRSD: 81 T: 39 QT: 381 QTc: 428 Interpretive Statements SINUS RHYTHM LOW QRS VOLTAGE IN PRECORDIAL LEADS Compared to ECG 07/28/2016 22:33:22 No significant changes This is a preliminary report. Edited by PASTORA BOWEN MD on 07-29-16 19:53:23 EDT. I have reviewed the study and I concur with findings above. I reviewed the tracing and have either agreed or edited the findings inthis report. Electronically Signed On 08-09-16 08:18:54 EST by MODESTO BENEDICT MD. Lindsay Patelng Lilliam DO CARDIAC ECG ORDERABL ES [facility] EKG * HOLD SST (07/29/2016 5:47 EDT) Hold SST Hold for further testing. Specimen will be held for 5 days. 07/29/2016 5:53 EDT [facility] BLOOD SPECIMEN / Unknown 07/29/2016 5:47 EDT 07/29/2016 5:52 EDT Lindsay Vyas DO LAB INFO SERVICE AND SUPPORT & PHONE RESULT Performing Organization Address [facility] Co de Phone Number [facility] [address] [place] [address] * (ABNORMAL) TROPONIN I (07/29/2016 5:47 EDT) Troponin I (ng/mL) 17.100(H) <0.034 ng/ml 07/29/2016 6:24 EDT [facility] Blood specimen (specimen) BLOOD SPECIMEN / Unknown 07/29/2016 5:47 EDT 07/29/2016 5:52 EDT Lindsay Vyas DO CHEMISTRY & BLOOD GA S ORDERABLES Performing Organization Address [facility] Co de Phone Number [facility] [address] [place] [address] * (ABNORMAL) HEMAGRAM (07/29/2016 5:47 EDT) WBC 8.82 4.0 - 12.4 K/cmm 07/29/2016 5:56 [facility] RBC 4.41 3.86 - 5.04 M/cmm 07/29/2016 5:56 [facility] Hemoglobin 11.9 11.6 - 15.2 gm/dl 07/29/2016 5:56 [facility] HCT 35.4 34.9 - 44.4 % 07/29/2016 5:56 [facility] MCV 80(L) 81 - 98 fl 07/29/2016 5:56 [facility] MCH 27.0 26.7 - 33.3 pg 07/29/2016 5:56 [facility] MCHC 33.6 32.1 - 35.9 gm/dl 07/29/2016 5:56 [facility] RDW-CV 13.3 11.7 - 14.6 % 07/29/2016 5:56 EDT [facility] RDW-SD 38.5 37.6 - 50.3 fl 07/29/2016 5:56 EDT [facility] PLT 267 141 - 377 K/cmm 07/29/2016 5:56 EDT [facility] MPV 11.0 9.5 - 12.7 fl 07/29/2016 5:56 EDT [facility] Blood specimen (specimen) BLOOD SPECIMEN / Unknown 07/29/2016 5:47 EDT 07/29/2016 5:52 [facility]T [facility] PF4 ORD ERABLES Performing Organization Address [facility] Co de Phone Number [facility] [address] [place] [address] * HEPARIN LEVEL - UNFRACTIONATED HEPARIN (07/29/2016 5:47 EDT) Heparin Level-UFH 0.41 IU/mL 016 6:21 EDT [facility] Comment: Unfractionated heparin therapeutic range = 0.3-0.7 IU/ml This test is not intended for monitoring direct Xa inhibitors, direct thrombin inhibitors, or fondaparinux. Exogenous ATIII is NOT supplied in this assay. For unexpected or persistently low levels, consider measuring patient's ATIII level. Blood specimen (specimen) BLOOD SPECIMEN / Unknown 07/29/2016 5:47 EDT 07/29/2016 5:52 EDT Lindsay Radhakatarzyna Vyas DO HEMATOLOGY & PF4 ORD ERABLES Performing Organization Address [facility] Co de Phone Number [facility] [address] [place] [address] * HEPARIN LEVEL - UNFRACTIONATED HEPARIN (07/28/2016 22:44 EDT) Heparin Level-UFH 0.23 IU/mL 016 23:20 EDT [facility] Comment: Unfractionated heparin therapeutic range = 0.3-0.7 IU/ml This test is not intended for monitoring direct Xa inhibitors, direct thrombin inhibitors, or fondaparinux. Exogenous ATIII is NOT supplied in this assay. For unexpected or persistently low levels, consider measuring patient's ATIII level. Sample retested, result confirmed Blood specimen (specimen) BLOOD SPECIMEN / Unknown 07/28/2016 22:44 EDT 07/28/2016 22:48 EDT Lindsay Vyas DO HEMATOLOGY & PF4 ORD ERABLES Performing Organization Address City/[facility]/ZIP Co de Phone Number [facility] [address] [place] [address] * (ABNORMAL) TROPONIN I (07/28/2016 22:44 EDT) Pathologist [facility] Troponin I (ng/mL) 14.800(H) <0.034 ng/ml 07/28/2016 23:16 EDT [facility] Blood specimen (specimen) BLOOD SPECIMEN / Unknown 07/28/2016 22:44 EDT 07/28/2016 22:48 EDT Lindsay Vyas DO CHEMISTRY & BLOOD GA S ORDERABLES Performing Organization Address [facility] Co de Phone Number [facility] [address] [place] [address] * (ABNORMAL) HEMAGRAM (07/28/2016 22:44 EDT) WBC 9.70 4.0 - 12.4 K/cmm 07/28/2016 22:53 EDT [facility] RBC 4.29 3.86 - 5.04 M/cmm 07/28/2016 22:53 [facility] Hemoglobin 11.5(L) 11.6 - 15.2 gm/dl 07/28/2016 22:53 [facility] HCT 34.3(L) 34.9 - 44.4 % 07/28/2016 22:53 [facility] MCV 80(L) 81 - 98 fl 07/28/2016 22:53 [facility] MCH 26.8 26.7 - 33.3 pg 07/28/2016 22:53 T [facility] MCHC 33.5 32.1 - 35.9 gm/dl 07/28/2016 22:53 [facility] RDW-CV 13.5 11.7 - 14.6 % 07/28/2016 22:53 [facility] RDW-SD 38.7 37.6 - 50.3 fl 07/28/2016 22:53 T [facility] PLT 287 141 - 377 K/cmm 07/28/2016 22:53 [facility] MPV 10.8 9.5 - 12.7 fl 07/28/2016 22:53 [facility] Blood specimen (specimen) BLOOD SPECIMEN / Unknown 07/28/2016 22:44 EDT 07/28/2016 22:48 EDT Lindsay Radha Vo DO HEMATOLOGY & PF4 ORD ERABLES [facility] [address] [place] [address] * LIPID PROFILE (INCLUDES CHOLESTEROL, TRIGLYCERIDES, HDL, LDL) (07/28/2016 22:44 EDT) Cholesterol 181 mg/dl 07/28/2016 23:05 [facility] Comment: Desirable:<200 Borderline High:200-239 High:>ap=997 Triglycerides 179 mg/dl 07/28/2016 23:05 [facility] Comment: Normal:<150 Borderline High:150-199 High:200-499 Very High:>kw=220 HDL 40 mg/dl 07/28/2016 23:05 [facility] Comment: Low:<40 Normal:40-60 Desirable: >60 LDL, Calculated 105 mg/dl 6 23:05 [facility] Comment: Optimal:<100 Near Optimal:100-129 Borderline High:130-159 High:160-189 Very High:>qw=798 Chol/HDL Ratio 4.5 07/28/2016 23:05 [facility] Fasting? Unknown 07/28/2016 23:05 EDT [facility] Non HDL Cholesterol 141 mg/dl 07/28/2016 23:05 EDT [facility] Comment: Desirable:<130 Borderline:130-159 High: 160-189 Very High: >fo=291 Blood specimen (specimen) BLOOD SPECIMEN / Unknown 07/28/2016 22:44 EDT 07/28/2016 22:48 EDT Lindsay Radha Vo DO CHEMISTRY & BLOOD GA S ORDERABLES Performing Organization Address City/[facility]/ZIP Co de Phone Number [facility] [address] [place] [address] * BUN (07/28/2016 22:44 EDT) BUN 10 10 - 26 mg/dl 07/28/2016 23:05 EDT [facility] Blood specimen (specimen) BLOOD SPECIMEN / Unknown 07/28/2016 22:44 EDT 07/28/2016 22:48 EDT Lindsay Radha Vo DO CHEMISTRY & BLOOD GA S ORDERABLES Performing Organization Address [facility] Co de Phone Number [facility] [address] [place] [address] * CREATININE (07/28/2016 22:44 EDT) Creatinine 0.64 0.52 - 1.04 mg/dl 07/28/2016 23:05 EDT [facility] GFR, Calculated 107 >60 ml/min/1.7 3m2 07/28/2016 23:05 EDT [facility] Comment: eGFR calculated using CKD-EPI equation for non Americans. Multiply eGFR by 1.16 for Americans. Blood specimen (specimen) BLOOD SPECIMEN / Unknown 07/28/2016 22:44 EDT 07/28/2016 22:48 EDT Lindsay Radha Vo DO CHEMISTRY & BLOOD GA S ORDERABLES Performing Organization Address [facility] Co de Phone Number [facility] [address] [place] [address] * ELECTROLYTES (07/28/2016 22:44 EDT) Sodium 139 136 - 145 mEq/L 07/28/2016 23:05 EDT [facility] Potassium 4.3 3.5 - 5.0 mEq/L 07/28/2016 23:05 EDT [facility] Chloride 107 96 - 110 mEq/L 07/28/2016 23:05 EDT [facility] CO2 22 22 - 32 mEq/L 07/28/2016 23:05 EDT [facility] Comment:Note new reference r priya 07/17/16 Blood specimen (specimen) BLOOD SPECIMEN / Unknown 07/28/2016 22:44 EDT 07/28/2016 22:48 EDT Lindsay Radha Vo DO CHEMISTRY & BLOOD GA S ORDERABLES Performing Organization Address [facility] de Phone Number [facility] [address] [place] [address] * HEMOGLOBIN A1C (07/28/2016 22:44 EDT) Hemoglobin A1C 5.4 % 07/29/2016 10:59 EDT [facility] Comment: Reference Range: <5.7% Normal 5.7-6.4% Increased risk for diabetes =>6.5% Diagnostic for diabetes (if confirmed) The A1c goal for non adults in general is <7%. The A1c goal for selected patients may be significantly lower than 7% if this can be achieved without significant hypoglycemia or other adverse effects of treatment. Est Avg Glucose 108 mg/dl 6 10:59 EDT [facility] Comment: eAG represents the A1c result expressed as average glucose in mg/dl. Blood specimen (specimen) BLOOD SPECIMEN / Unknown 07/28/2016 22:44 EDT 07/28/2016 22:48 EDT Lindsay Radha Lillima DO CHEMISTRY & BLOOD GA S ORDERABLES Performing Organization Address [facility] Co de Phone Number [facility] [address] [place] [address] * EKG 12-LEAD (07/28/2016 22:33 EDT) 07/28/2016 22:3 3 EDT Narrative [facility] - 08/09/2016 10:23 EST ? [facility] ? Test Date: ?2016-07-28 Pat Name: ? KEYLA MORA ?Department: ?? [facility] ? Room: ? Gender: ? F ?[employer] Net: ?? [id number] : ?1970 ? Requested By: LINDSAY VO DO Order Number: ?Reading MD: ?? MODESTO WILSON SA MD ? Measurements Intervals ?[place] ? Rate: ? 78 ? P: ?0 OR: ? 168 ?QRS: ?26 QRSD: ? 80 ? T: ?36 QT: ? 368 ? QTc: ?421 ? Interpretive Statements SINUS RHYTHM This is a preliminary report. ??Edited by PASTORA BOWEN MD on 07-29-16 19:53:42 EDT. Compared to ECG 07/28/2016 22:32:35 No significant changes I have reviewed the study and I concur with findings above. I reviewed the tracing and have either agreed or edited the findings in this report. Electronically Signed On 08-09-16 10:23:43 EST by MODESTO WILSON SA, MD. Procedure Note Modesto Morin Sa, MD - 08/09/2016 [facility] Test Date: 2016-07-28 Pat Name: KEYLA MORGAN Department: [place] [address] Room: Gender: F [employer] Net: [id number] : 1970 Requested By: LINDSAY VYAS DO Order Number: Reading MD: MODESTO SLADE Measurements Intervals [place] Rate: 78 P: 0 OR: 168 QRS: 26 QRSD: 80 T: 36 QT: 368 QTc: 421 Interpretive Statements SINUS RHYTHM This is a preliminary report. Edited by PASTORA BOWEN MD on 07-29-16 19:53:42 EDT. Compared to ECG 07/28/2016 22:32:35 No significant changes I have reviewed the study and I concur with findings above. I reviewed the tracing and have either agreed or edited the findings inthis report. Electronically Signed On 08-09-16 10:23:43 EST by MODESTO BENEDICT MD. Lindsay Radha Lilliam DO CARDIAC ECG ORDERABL ES [facility] E[facility] * EKG 12-LEAD (07/28/2016 22:32 EDT) 07/28/2016 22:3 2 EDT Narrative [facility] E[facility] - 08/08/2016 10:18 EST ? [facility] ? Test Date: ?2016-07-28 Pat Name: ? KEYLA MORA ?Department: ?? [facility] ? Room: ? MW511 Gender: ? F ?[employer] Net: ?? [id number] : ?1970 ? Requested By: LILLIAM MONTOYA P Order Number: [id number] ? Reading MD: ?? MODESTO WILSON SA, MD ? Measurements Intervals ?[place] ? Rate: ? 84 ? P: ?-5 OR: ? 166 ?QRS: ?19 QRSD: ? 76 ? T: ?35 QT: ? 364 ? QTc: ?430 ? Interpretive Statements SINUS RHYTHM No previous ECG available for comparison This is a preliminary report. ??Edited by PASTORA BOWEN MD on 07-29-16 19:52:37 EDT. I have reviewed the study and I concur with findings above. I reviewed the tracing and have either agreed or edited the findings in this report. Electronically Signed On 08-08-16 10:18:22 EST by MODESTO WILSON SA, MD. Procedure Note Modesto Morin Sa, MD - 08/08/2016 [facility] Test Date: 2016-07-28 Pat Name: KEYLA MORA Department: [place] [address] Room: [facility] Gender: F [employer] Net: [id number] : 1970 Requested By: LILLIAM Young Order Number: [id number] Reading MD: MODESTO SLADE Measurements Intervals [place] Rate: 84 P: -5 OR: 166 QRS: 19 QRSD: 76 T: 35 QT: 364 QTc: 430 Interpretive Statements SINUS RHYTHM No previous ECG available for comparison This is a preliminary report. Edited by PASTORA BOWEN MD on 07-29-16 19:52:37 EDT. I have reviewed the study and I concur with findings above. I reviewed the tracing and have either agreed or edited the findings inthis report. Electronically Signed On 08-08-16 10:18:22 EST by MODESTO BENEDICT MD. Lindsay Radha Vo DO CARDIAC ECG ORDERABL ES [facility] EKG documented in this encounter Visit Diagnoses Diagnosis NSTEMI (non-ST elevated myocardial infarction) (HCC-CMS)- Primary Acute myocardial infarction, subendocardial infarction, episode of care unspecified NSTEMI (non-ST elevated myocardial infarction) (HCC-CMS) Acute myocardial infarction, subendocardial infarction, episode of care unspecified documented in this encounter Administered Medications Inactive Administered Medications - up to 3 most recent administrations Medication Order MAR Action Action Date Dose Rate Site acetaminophen (TYLENOL) tablet 650 mg 650 mg, oral, EVERY 4 HOURS PRN, Starting on 07/28/16 at 2220, Until Sat07/30/16 at 1601, Pain, Routine Given 07/29/2016 3:18 EDT 650 mg Given 07/28/2016 22:56 EDT 650 mg aspirin EC tablet 81 mg 81 mg, oral, DAILY, First dose on 07/29/16 at 0900, Until Discontinued, Routine Given 07/30/2016 9:13 EDT 81 mg Given 07/29/2016 7:36 EDT 81 mg atorvastatin (LIPITOR) tablet 20 mg 20 mg, oral, DAILY, First dose (after last modification) on 07/30/16 at 0900, Until Discontinued, Routine Given 07/30/2016 9:13 EDT 20 mg atorvastatin (LIPITOR) tablet 40 mg 40 mg, oral, DAILY, First dose on 07/28/16 at 2330, Until Discontinued, Routine Given 07/29/2016 7:33 EDT 40 mg Given 07/28/2016 23:30 EDT 40 mg bivalirudin (ANGIOMAX) 250 mg in sodium chloride (NS) 0.9 % 50 mL infusion 250 mg, intravenous, FA IP EQF CONTINUOUS PRN FOR ONE STEP MEDS, Starting on 07/29/16 at 0843, Until 07/29/16 at 0928, Routine New Bag 07/29/2016 8:43 EDT 1.75 mg/kg/hr 38.4 mL /hr IV bivalirudin (ANGIOMAX) injection intravenous, PRN, Starting on 07/29/16 at 0841, Until 07/29/16 at 0841 Given 07/29/2016 8:41 EDT 75 mg IV ceFAZolin (ANCEF) injection intravenous, PRN, Starting on 07/29/16 at 0830, Until 07/29/16 at 0830, Routine Given 07/29/2016 8:30 EDT 1 g IV clopidogrel (PLAVIX) tablet 75 mg 75 mg, oral, DAILY, First dose on 07/30/16 at 0900, Until Discontinued, Routine Given 07/30/2016 9:13 EDT 75 mg fentaNYL citrate (PF) 50 mcg/mL injection intravenous, PRN, Starting on 07/29/16 at 0822, Until [place] 07/29/16 at 0855, Routine Given 07/29/2016 8:55 EDT 25 mcg Given 07/29/2016 8:22 EDT 25 mcg heparin in 1/2 NS 25,000 unit/250 mL infusion 15 Units/kg/hr ? 75.5 kg Adjusted weight (11.325 mL/hr, rounded to 11.3 mL/hr), intravenous, CONTINUOUS, Starting on 07/28/16 at 2245, Until 07/29/16 at 2155, Routine Rate Documented 07/29/2016 15:30 EDT 15 Units/kg/hr 11.3 mL/hr Rate Documented 07/29/2016 15:00 EDT 15 Units/kg/hr 11.3 m L/hr Rate Documented 07/29/2016 11:00 EDT 15 Units/kg/hr 11.3 m L/hr metoprolol (LOPRESSOR) tablet 12.5 mg 12.5 mg, oral, 2 TIMES DAILY, First dose (after last modification) on 07/29/16 at 0900, Until Discontinued, Routine Given 07/29/2016 7:35 EDT 12.5 mg metoprolol (LOPRESSOR) tablet 25 mg 25 mg, oral, 2 TIMES DAILY, First dose on 07/28/16 at 2330, Until Discontinued, Routine Given 07/28/2016 23:24 EDT 25 mg metoprolol XL (TOPROL-XL) tablet 25 mg 25 mg, oral, DAILY, First dose on 07/29/16 at 1000, Until Discontinued, Routine Given 07/30/2016 9:13 EDT 25 mg Given 07/29/2016 11:24 EDT 25 mg midazolam (PF) (VERSED) 1 mg/mL injection intravenous, PRN, Starting on 07/29/16 at 0822, Until 07/29/16 at 0855, Routine Given 07/29/2016 8:55 EDT 1 mg IV Given 07/29/2016 8:23 EDT 1 mg IV Given 07/29/2016 8:22 EDT 1 mg IV nitroGLYCERIN (NITROSTAT) SL tablet 0.4 mg 0.4 mg, sublingual, EVERY 5 MIN PRN, Starting on 07/28/16 at 2221, Until 07/30/16 at 1601, Chest Pain, Routine Given 07/28/2016 23:20 EDT 0.4 mg sodium chloride 0.9 % (NS) infusion intravenous, FA IP EQF CONTINUOUS PRN FOR ONE STEP MEDS, Starting on 07/29/16 at 0815, Until 07/29/16 at 0815, Routine New Bag 07/29/2016 8:15 EDT 50 mL/hr 50 mL/hr IV sodium chloride 0.9 % flush 3 mL 3 mL, intravenous, EVERY 8 HOURS, First dose on 07/29/16 at 0000, Until Discontinued, Routine Given 07/29/2016 23:18 EDT 10 mL Given 07/29/2016 15:30 EDT 3 mL Given 07/28/2016 23:09 EDT 3 mL ticagrelor (BRILINTA) tablet 180 mg 180 mg, oral, Once (Without Time Specified), 1 dose, Starting on 07/28/16 at 2330, Until 07/28/16 at 2324, Routine Given 07/28/2016 23:24 EDT 180 mg ticagrelor (BRILINTA) tablet 90 mg 90 mg, oral, 2 TIMES DAILY, 2 doses, First dose on 07/29/16 at 0900, Last dose on 07/29/16 at 2100, Routine Given 07/29/2016 20:00 EDT 90 mg Given 07/29/2016 7:33 EDT 90 mg documented in this encounter Active and Recently Administered Medications Times are shown in EDT. Scheduled Medication Order 07/28/2016 07/29/2016 07/30/2016 aspirin EC tablet 81 mg 81 mg, oral, DAILY, First dose on 07/29/16 at 0900, Until Discontinued, Routine 0736 (Given - Provider: Venessa Rios RN)0900 (Canceled Entry - Provider: Venessa Rios RN) 0913 (Given - Provider: Bibi Medina RN) atorvastatin (LIPITOR) tablet 20 mg 20 mg, oral, DAILY, First dose (after last modification) on 07/30/16 at 0900, Until Discontinued, Routine 09 (Given - Provider: Bibi Medina RN) atorvastatin (LIPITOR) tablet 40 mg (CANCELED) 40 mg, oral, DAILY, First dose on 07/28/16 at 2330, Until Discontinued, Routine 2330 (Given - Provider: Trina Herring RN) 0733 (Given - Provider: Venessa Rios RN)0900 (Canceled Entry - Provider: Venessa Rios RN) clopidogrel (PLAVIX) tablet 75 mg 75 mg, oral, DAILY, First dose on 07/30/16 at 0900, Until Discontinued, Routine 09 (Given - Provider: Bibi Medina RN) metoprolol (LOPRESSOR) tablet 12.5 mg (CANCELED) 12.5 mg, oral, 2 TIMES DAILY, First dose (after last modification) on 07/29/16 at 0900, Until Discontinued, Routine 0735 (Given - Provider: Venessa Rios RN)0900 (Canceled Entry - Provider: Venessa Rios RN) metoprolol (LOPRESSOR) tablet 25 mg (CANCELED) 25 mg, oral, 2 TIMES DAILY, First dose on 07/28/16 at 2330, Until Discontinued, Routine 2324 (Given - Provider: Trina Herring RN) metoprolol XL (TOPROL-XL) tablet 25 mg 25 mg, oral, DAILY, First dose on 07/29/16 at 1000, Until Discontinued, Routine 1124 (Given - Provider: Venessa Rios RN) 0913 (Given - Provider: Bibi Medina RN) sodium chloride 0.9 % flush 3 mL 3 mL, intravenous, EVERY 8 HOURS, First dose on 07/29/16 at 0000, Until Discontinued, Routine 2309 (Given - Provider: Trina Herring RN) 0735 (Not Given - Provider: Venessa Rios RN - Reason: Other - Comment: IVF)1530 (Given - Provider: Venessa Rios RN)2318 (Given - Provider: Carter Karimi RN) 0900 (Canceled Entry - Provider: Bibi Medina RN - Comment: given during assessment) ticagrelor (BRILINTA) tablet 180 mg (COMPLETED) 180 mg, oral, Once (Without Time Specified), 1 dose, Starting on 07/28/16 at 2330, Until 07/28/16 at 2324, Routine 2324 (Given - Provider: Trina Herring RN) ticagrelor (BRILINTA) tablet 90 mg (COMPLETED) 90 mg, oral, 2 TIMES DAILY, 2 doses, First dose on 07/29/16 at 0900, Last dose on 07/29/16 at 2100, Routine 0733 (Given - Provider: Venessa Rios RN)0900 (Canceled Entry - Provider: Venessa Rios RN)2000 (Given - Provider: Quyen Marsh RN) Continuous Medication Order 07/28/2016 07/29/2016 07/30/2016 heparin in 1/2 NS 25,000 unit/250 mL infusion () 15 Units/kg/hr ? 75.5 kg Adjusted weight (11.325 mL/hr, rounded to 11.3 mL/hr), intravenous, CONTINUOUS, Starting on 07/28/16 at 2245, Until 07/29/16 at 2155, Routine 2256 (New Bag - Provider: Trina Herring RN)2328 (Rate Documented - Provider: Trina Herring RN) 0700 (Rate Documented - Provider: Venessa Rios RN)0815 (Completed - Provider: Aaron Hinton, GILBERTO)0929 (Restarted - Provider: Aaron Hinton, RN)1100 (Rate Documented - Provider: Venessa Rios RN)1500 (Rate Documented - Provider: Venessa Rios RN)1530 (Rate Documented - Provider: Quyen Marsh RN)2055 (Completed - Provider: Quyen Marsh RN) PRN Medication Order 07/28/2016 07/29/2016 07/30/2016 acetaminophen (TYLENOL) tablet 650 mg 650 mg, oral, EVERY 4 HOURS PRN, Starting on 07/28/16 at 2220, Until 07/30/16 at 1601, Pain, Routine 2256 (Given - Provider: Trina Herring, GILBERTO) 0318 (Given - Provider: Trina Herring RN) bivalirudin (ANGIOMAX) 250 mg in sodium chloride (NS) 0.9 % 50 mL infusion (CANCELED) 250 mg, intravenous, FA IP EQF CONTINUOUS PRN FOR ONE STEP MEDS, Starting on 07/29/16 at 0843, Until 07/29/16 at 0928, Routine 0843 (New Bag - Provider: Aaron Hinton RN)0920 (Completed - Provider: Aaron Hinton RN) bivalirudin (ANGIOMAX) injection (COMPLETED) intravenous, PRN, Starting on 07/29/16 at 0841, Until 07/29/16 at 0841 0841 (Given - Provider: Aaron Hinton, GILBERTO) ceFAZolin (ANCEF) injection (COMPLETED) intravenous, PRN, Starting on 07/29/16 at 0830, Until 07/29/16 at 0830, Routine 0830 (Given - Provider: Aaron Hinton, GILBERTO) fentaNYL citrate (PF) 50 mcg/mL injection (COMPLETED) intravenous, PRN, Starting on 07/29/16 at 0822, Until 07/29/16 at 0855, Routine 0822 (Given - Provider: Aaron Hinton RN)0855 (Given - Provider: Aaron Hinton, RN) midazolam (PF) (VERSED) 1 mg/mL injection (COMPLETED) intravenous, PRN, Starting on 07/29/16 at 0822, Until 07/29/16 at 0855, Routine 0822 (Given - Provider: Aaron Hinton, GILBERTO)0823 (Given - Provider: Aaron Hinton, GILBERTO)0855 (Given - Provider: Aaron Hinton, RN) nitroGLYCERIN (NITROSTAT) SL tablet 0.4 mg 0.4 mg, sublingual, EVERY 5 MIN PRN, Starting on 07/28/16 at 2221, Until 07/30/16 at 1601, Chest Pain, Routine 2320 (Given - Provider: Trina Herring RN) sodium chloride 0.9 % (NS) infusion (COMPLETED) intravenous, FA IP EQF CONTINUOUS PRN FOR ONE STEP MEDS, Starting on 07/29/16 at 0815, Until 07/29/16 at 0815, Routine 0815 (New Bag - Provider: Ira Malik RN) documented in this encounter Orders Medications Ordered That Andres ht Not Have Been Administered Count Last Ordered Date First Ordered Date bivalirudin (ANGIOMAX) 250 mg injection 1 1 fentaNYL citrate (PF) 50 mcg/mL injection 1 07/29/2016 heparin 1,000 unit/mL injection 1 6 lidocaine 20 mg/mL (2 %) injection 1 2015 midazolam (PF) (VERSED) 1 mg/mL injection 2 07/29/2016 morphine injection 2 mg 1 07/29/2016 nitroglycerin 100 mcg/mL syringe 1 07/29/20 16 verapamil (ISOPTIN) 2.5 mg/mL injection 1 1 heparin 1,000 unit/mL inject ion 2,600 Units 1 07/28/2016 heparin 1,000 unit/mL inject ion 5,300 Units 1 07/28/2016 Diet Count Last Ordered Date First Orde red Date DISCHARGE DIET 3 07/30/2016 Nursing Count Last Ordered Date First Orde red Date ACTIVITY INSTRUCTIONS 2 07/30/2016 BATHING INSTRUCTIONS 2 07/30/2016 WOUND CARE INSTRUCTIONS 2 07/30/2016 PATIENT AT LOW RISK FOR VTE: RISK OF MECHANICAL PROPHYLAXIS OUTWEIGHS 1 07/29/2016 PATIENT AT LOW RISK FOR VTE: RISK OF PHARMACOLOGIC PROPHYLAXIS OUTWEIG 1 07/29/2016 CONTRAINDICATION TO ANTICOAG ULATION THERAPY 1 07/28/2016 Admission Count Last Ordered Date First Orde red Date STATUS: INPATIENT ACUTE ADMISSION 1 016 Transfer Count Last Ordered Date First Orde red Date CHANGE PCP 1 07/30/2016 NOTIFY PPS OF DISCHARGE COMPLETE 1 07/30/20 16 UR PATIENT STATUS CHANGE 1 07/29/2016 Discharge Count Last Ordered Date First Orde red Date DISCHARGE PATIENT 1 07/30/2016 Legal Count Last Ordered Date First Orde red Date MISCELLANEOUS DISCHARGE INSTRUCTIONS 6 07/02 documented in this encounter Care Teams Automatic Vulcanizing Operator Relationship Specialty Start Date End Date Unknown, Provider, PCP - General 07/28/16 07/29/16 documented as of this encounter
--- NOTE | 2024-07-29 19:06 | NUR.NOTE ---
entered room and greeted patient with discharge paperwork. patient refused to sign discharge, signed in proxy
--- NOTE | 2024-07-30 13:03 | NUR.NOTE ---
Access chart to get the diagnosis information for [facility] forms. Nursing Note:
== END 2024-07-29 19:10 | disposition home or self-care (01) ==
LOC: ER 18:22
PROVIDERS: Emergency Provider Emergency Medicine; PCP Family Medicine
DX: S00.83XA Contusion of other part of head, initial encounter (principal); S50.812A Abrasion of left forearm, initial encounter; M25.561 Pain in right knee; M25.562 Pain in left knee; Z23 Encounter for immunization; Z91.81 History of falling; W10.1XXA Fall (on)(from) sidewalk curb, initial encounter
CPT/HCPCS: 90471; 90715; 99283; 73080